=== PATIENT | male | born 1935 | race Caucasian/White ===

== ENCOUNTER 2017-07-14 04:37 | Inpatient (IN) | payer MEDICARE, OTHER ==
[2017-07-14] VITALS (14 sets, daily range): BP systolic 121–192; BP diastolic 62–107; PULSE 54–105; RESP 16–22; TEMP 98.1–98.4; O2SAT 94–100
[~2017-07-14] VITALS: Ht 185.4 cm; Wt 116.8 kg
[~2017-07-14 04:37] MED LIST: ASPI1TAB69 PO; ATAC16TA4 PO; LIPI10TA PO; MIRA33504 PO; PRIL20CA9 PO; PROS5TAB PO
[2017-07-14] MEDS ORDERED: ASPI81CH7 CHEW (05:15)
[2017-07-14] MEDS ORDERED: OMEP20TA93 PO (05:15)
[2017-07-14] MEDS ORDERED: oxyCODONE/ACETAMINOPHEN 5 MG/325 MG TAB PO ONE (05:45)
[2017-07-14] MEDS ORDERED: ONDANSETRON ODT 4 MG TAB PO ONE (05:45)
--- NOTE | 2017-07-14 06:01 | RADRPT ---
EXAM DATE/TIME: 07/14/2017 05:02 [facility] COMPARISON: CHEST SINGLE AP, August 24, 2016, 5:15. INDICATIONS : Fall pain in chest on left side. MEDICAL HISTORY : None. SURGICAL HISTORY : None. ENCOUNTER: Initial ACUITY: 1 day PAIN SCORE: 5/10 LOCATION: Left chest FINDINGS: There is hazy perihilar parenchymal opacity on the left. Right lung is grossly clear. No significant effusion suspected. Cardiac contours are satisfactory for technique and projection. CONCLUSION: Mild left perihilar parenchymal opacity Stew Gunn MD on July 14, 2017 at 5:59 Board Certified Radiologist. This report was verified electronically.
--- NOTE | 2017-07-14 06:02 | RADRPT ---
EXAM DATE/TIME: 07/14/2017 05:04 [facility] COMPARISON: No previous studies available for comparison. INDICATIONS : Pain in left upper arm from fall. MEDICAL HISTORY : None. SURGICAL HISTORY : None. ENCOUNTER: Initial ACUITY: 1 day PAIN SCORE: 0/10 LOCATION: Left humerus FINDINGS: Two view examination of the left humerus demonstrates no evidence of fracture or dislocation. Bony m ineralization is normal. The soft tissue structures are intact. There are is arthritic change in the left shoulder, mainly involving the a.c. joint. CONCLUSION: Unremarkable examination of the left humerus. Stew Gunn MD on July 14, 2017 at 6:00 Board Certified Radiologist. This report was verified electronically.
[2017-07-14] MEDS ORDERED: SODIUM CHLORIDE 0.9% FLUSH 10 ML FLUSH IVF PRN (06:30)
--- NOTE | 2017-07-14 06:33 | PD ---
HPI Chief Complaint: Fall Time Seen by Provider: 05:31 Travel History International Travel<30 days: No Contact w/Intl Traveler<30days: No Traveled to known affect area: No History of Present Illness HPI 81 yo M c/o L chest pain after mechanical fall this morning. He fell onto the L side causing sudden onset constant L chest pain worse with inspiration. Additional complaints include L humerus pain. No head trauma. No LOC. Pt takes aspirin. No anticoagulation otherwise. PFSH Past Medical History Hx Anticoagulant Therapy: Yes (ASPIRIN 81) Arthritis: Yes (GENARALIZED) Blood Disorders: No Cancer: Yes (SKIN,PROSTATE) Cardiovascular Problems: Yes High Cholesterol: Yes Chest Pain: Yes (IN LAST 4 MOS.) Diminished Hearing: No Endocrine: No Gastrointestinal Disorders: Yes GERD: Yes Genitourinary: Yes Hypertension: Yes Implanted Vascular Access Dvce: Yes Medical other: Yes (KELLY'S ESOPHAGUS) Musculoskeletal: Yes Neurologic: No Psychiatric: No Reproductive: No Respiratory: Yes Immunizations Current: Yes Radiation Therapy: Yes (HX) Tetanus Vaccination: Unknown Influenza Vaccination: No Past Surgical History Body Medical Devices: RIGHT TIBIA PLATE Genitourinary Surgery: Yes (CYSTOSCOPY-PROSTATE BIOPSY-2002) Tonsillectomy: Yes Other Surgery: Yes Social History Alcohol Use: Yes (OCCASIONALLY) Tobacco Use: No Substance Use: No Allergies-Medications (Allergen,Severity, Reaction): Coded Allergies: No Known Allergies (Verified , 08/24/16) Reported Meds & Prescriptions Reported Meds & Active Scripts Active Reported Omeprazole 20 Mg Tab 20 Mg PO DAILY Aspirin Children's (Aspirin) 81 Mg Chew 81 Mg CHEW DAILY Atacand Hct (Candesartan-Hydrochlorothiazide) 16-12.5 Mg Tab 1 Tab PO DAILY Lipitor (Atorvastatin Calcium) 10 Mg Tab 1 Tab PO HS Proscar (Finasteride) 5 Mg Tab 1 Tab PO DAILY Do not crush. Physical Exam Narrative GENERAL: 81 yo F, WNWD, moderate distress 2/2 pain SKIN: Focused skin assessment warm/dry. HEAD: Atraumatic. Normocephalic. EYES: Pupils equal and round. No scleral icterus. No injection or drainage. ENT: No nasal bleeding or discharge. Mucous membranes pink and moist. NECK: Trachea midline. No JVD. CARDIOVASCULAR: Regular rate and rhythm. No murmur appreciated. RESPIRATORY: No accessory muscle use. No flail chest. GASTROINTESTINAL: Abdomen soft, non-tender, nondistended. Hepatic and splenic margins not palpable. MUSCULOSKELETAL: No obvious deformities. No clubbing. No cyanosis. No edema. NEUROLOGICAL: Awake and alert. No obvious cranial nerve deficits. Motor grossly within normal limits. Normal speech. PSYCHIATRIC: Appropriate mood and affect; insight and judgment normal. Data Data Last Documented VS Vital Signs Date Time Temp Pulse Resp B/P (MAP) Pulse Ox O2 Delivery O2 Flow Rate FiO2 07/14/17 06:50 97 Nasal Cannula 2.00 07/14/17 06:30 92 16 124/81 (95) 07/14/17 04:40 98.3 Orders Orders Humerus (Min 2vws) (07/14/17 ) Chest, Single Ap (07/14/17 ) Oxycodone-Acetamin 5-325 Mg (Percocet (07/14/17 05:45) Ondansetron Odt (Zofran Odt) (07/14/17 05:45) Ct Thorax/ Chest Wo Iv Contras (07/14/17 06:07) Basic Metabolic Panel (Bmp) (07/14/17 06:27) Complete Blood Count With Diff (07/14/17 06:27) Prothrombin Time / Inr (Pt) (07/14/17 06:27) Act Partial Throm Time (Ptt) (07/14/17 06:27) Ecg Monitoring (07/14/17 06:27) Iv Access Insert/Monitor (07/14/17 06:27) Oximetry (07/14/17 06:27) Oxygen Administration (07/14/17 06:27) Sodium Chloride 0.9% Flush (Ns Flush) (07/14/17 06:30) Admit Order (Ed Use Only) (07/14/17 ) [employer] Insight Manager / Telemetry CONSTANTINE.Q8H (07/14/17 07:02) Vital Signs (Adult) Q4H (07/14/17 07:02) Diet Npo (07/14/17 Breakfast) Activity Bed Rest (07/14/17 07:02) Notify Dr: Other (07/14/17 07:02) MDM Medical Decision Making Medical Screen Exam Complete: Yes Emergency Medical Condition: Yes Medical Record Reviewed: Yes Differential Diagnosis Flail chest, hemothorax, pneumothorax, anemia Narrative Course Last [address] 07/14/17 0607 Signed Impressions: Service Date/Time: Friday, July 14, 2017 06:17 - CONCLUSION: Large posterior left chest mass is likely subpleural hematoma. See above discussion. Stew Gunn MD Humerus X-Ray 07/14/17 0000 Signed Impressions: Service Date/Time: Friday, July 14, 2017 05:04 - CONCLUSION: Unremarkable examination of the left humerus. Stew Gunn MD Chest X-Ray 07/14/17 0000 Signed Impressions: Service Date/Time: Friday, July 14, 2017 05:02 - CONCLUSION: Mild left perihilar parenchymal opacity Stew Gunn MD Case d/w Dr Gutierrez for [employer] service Pt hemodynamically stable throughout ED stay with O2 sats in high 90s Pt to go to [facility], possible chest tube placement and/or thoracic surgery consult Diagnosis Primary Impression: Rib fractures Qualified Codes: S22.42XA - Multiple fractures of ribs, left side, initial encounter for closed fracture Additional Impression: Hemothorax on left Admitting Information Admitting Physician Requests: Observation Per Ramon MD Jul 14, 2017 06:33
--- NOTE | 2017-07-14 06:34 | RADRPT ---
EXAM DATE/TIME: 07/14/2017 06:17 [facility] COMPARISON: CHEST SINGLE AP, August 24, 2016, 5:15. CHEST SINGLE AP, July 14, 2017, 5:02. INDICATIONS : Abnormal chest radiograph. RADIATION DOSE: 9.25 CTDIvol (mGy) MEDICAL HISTORY : Cardiovascular disease. Carcinoma, prostate. SURGICAL HISTORY : None. ENCOUNTER: Initial ACUITY: 1 day PAIN SCALE: 0/10 LOCATION: chest TECHNIQUE: Volumetric scanning of the chest was performed. Using automated exposure control and adjustment of t he mA and/or kV according to patient size, radiation dose was kept as low as reasonably achievable to obtain optimal diagnostic quality images. DICOM format image data is available electronically for r eview and comparison. Follow-up recommendations for detected pulmonary nodules are based at a minimum on nodule size and pa tient risk factors according to Fleischner Society Guidelines. FINDINGS: There is a large heterogeneous density subpleural mass involving the posterior left pleural space. Th e process measures greater than 13 cm in sagittal dimension by nearly 12 cm transverse and 6-7 cm in AP dimension. There appears to be minimal adjacent low density pleural fluid medially. There is mild adjacent compressive lung atelectasis and atelectasis in the left lung base. Right lung is satisfacto rily aerated and grossly clear. There are multiple mildly displaced acute appearing posterior and pos terolateral left rib fractures and the mass is therefore presumed to be subpleural hematoma. There is no evidence of mediastinal mass or adenopathy. Minimal pericardial fluid is present. A moder ate-sized hiatal hernia is noted. Dense atherosclerotic calcifications are present, including within the coronaries. There is fairly severe nonacute appearing compressive injury involving one of the lower thoracic vert ebra, likely T11 CONCLUSION: Large posterior left chest mass is likely subpleural hematoma. See above discussion. Stew Gunn MD on July 14, 2017 at 6:25 Board Certified Radiologist. This report was verified electronically.
[2017-07-14] MEDS ORDERED: MAGNESIUM HYDROXIDE SUSP 30 ML CUP PO PRN (07:15)
[2017-07-14] MEDS ORDERED: BISACODYL 10 MG SUPP RECTAL PRN (07:15)
[2017-07-14] MEDS ORDERED: SENNOSIDES 8.6 MG TAB PO PRN (07:15)
[2017-07-14] MEDS ORDERED: RESP: ALBUTEROL 2.5 MG/IPRATROPIUM 0.5 MG NEB (PRN) INH (07:15)
[2017-07-14] MEDS ORDERED: MISCELLANEOUS NURSING INFORMATION XX SCH (07:15)
[2017-07-14] MEDS ORDERED: LACTULOSE SYRUP 20 GM/30 ML CUP PO PRN (07:15)
[2017-07-14] MEDS ORDERED: ACETAMINOPHEN 325 MG TAB PO PRN (07:15)
[2017-07-14] MEDS ORDERED: ONDANSETRON HCL 4 MG/2 ML VIAL IV PUSH PRN (07:15)
[2017-07-14] MEDS ORDERED: CHLORHEXIDINE GLUCONATE 2 % 1 PACK (2 CLOTHS) TOP PRN (07:15)
[2017-07-14] MEDS ORDERED: SODIUM CHLOR 0.9% 1000 ML INJ 1,000 ML IV ONE (07:30)
[2017-07-14 07:50] LABS: AUTOMATED NEUTROPHIL # 11.2 TH/MM3 (1.8-7.7); BASOPHIL % 0.2 % (0.0-2.0); EOSINOPHIL % 0.3 % (0.0-4.0); HEMATOCRIT 34.9 % (39.0-51.0); LYMPH % 3.3 % (9.0-44.0); LYMPHOCYTE # 0.4 TH/MM3 (1.0-4.8); MEAN CELL VOLUME 91.7 FL (80.0-100.0); MEAN CORPUSCULAR HEMOGLOBIN 31.5 PG (27.0-34.0); MEAN CORPUSCULAR HGB CONC 34.4 % (32.0-36.0); MEAN PLATELET VOLUME 7.8 FL (7.0-11.0); MONO % 5.1 % (0.0-8.0); MONOCYTE # 0.6 TH/MM3 (0-0.9); NEUT % 91.1 % (16.0-70.0); PLATELET COUNT 218 TH/MM3 (150-450); RED BLOOD COUNT 3.81 MIL/MM3 (4.50-5.90); RED CELL DISTRIBUTION WIDTH 12.9 % (11.6-17.2); WHITE BLOOD COUNT 12.3 TH/MM3 (4.0-11.0)
[2017-07-14 08:03] LABS: PROTHROMBIN TIME - PATIENT 10.9 SEC (9.8-11.6)
[2017-07-14 08:12] LABS: TOTAL BILIRUBIN ADULT 0.3 MG/DL (0.2-1.0); TOTAL PROTEIN 7.1 GM/DL (6.4-8.2)
[2017-07-14 08:15] LABS: ALBUMIN 3.3 GM/DL (3.4-5.0); BICARBONATE 24.6 MEQ/L (21.0-32.0); CALCIUM 8.5 MG/DL (8.5-10.1); CREATININE 0.68 MG/DL (0.60-1.30); DIRECT BILIRUBIN ADULT 0.1 MG/DL (0.0-0.2); INDIRECT BILIRUBIN 0.2 MG/DL (0.0-0.8)
[2017-07-14] MEDS: SODIUM CHLORIDE 0.9% FLUSH 10 ML FLUSH IV FLUSH SCH ×2 (09:00→21:16)
[2017-07-14] MEDS: DOCUSATE SODIUM 50 MG/SENNA 8.6 MG TAB PO SCH ×2 (09:00→21:15)
[2017-07-14] MEDS: SODIUM CHLOR 0.9% 1000 ML INJ 1,000 ML IV SCH ×2 (10:12→16:41)
[2017-07-14] MEDS: MORPHINE SULFATE 4 MG/ML INJ IV PUSH PRN ×4 (10:14→21:38)
--- NOTE | 2017-07-14 12:31 | HHI.HP ---
HPI Service Critical Care Medicine Primary Care Physician Ignacio Das MD Admission Diagnosis Fall, L Posterior Rib Fractures, L Hemothorax Diagnosis: Travel History International Travel<30 Days: No Contact w/Intl Traveler <30 Da: No Traveled to Known Affected Are: No History of Present Illness HPI 81-year-old male who lives in an assisted living facility and has a history of unsteadiness fell this morning and this left chest against a drawer and subsequently had significant left-sided chest pain with inspiration. He was brought to the ER and underwent a CT chest which revealed a subpleural mass consistent with hematoma and rib fractures involving the left chest wall. Patient was accepted for admission by critical care medicine service. He is not on any anticoagulation. He uses aspirin daily. I evaluated the patient following his arrival to the ICU. At that time he was on 2 L nasal cannula and complaining of chest wall pain. He told me that as long as he does not take deep breaths he does not have much pain however has significant left-sided chest wall pain with deep breathing and movement. History PFSH Past Medical History Hx Anticoagulant Therapy: Yes (ASPIRIN 81) Arthritis: Yes (GENARALIZED) Blood Disorders: No Cancer: Yes (SKIN,PROSTATE) Cardiovascular Problems: Yes High Cholesterol: Yes Chest Pain: Yes (IN LAST 4 MOS.) Diminished Hearing: No Endocrine: No Gastrointestinal Disorders: Yes GERD: Yes Genitourinary: Yes Hypertension: Yes Implanted Vascular Access Dvce: Yes Medical other: Yes (KELLY'S ESOPHAGUS) Musculoskeletal: Yes Neurologic: No Psychiatric: No Reproductive: No Respiratory: Yes Immunizations Current: Yes Radiation Therapy: Yes (HX) Tetanus Vaccination: Unknown Influenza Vaccination: No Past Surgical History Body Medical Devices: RIGHT TIBIA PLATE Genitourinary Surgery: Yes (CYSTOSCOPY-PROSTATE BIOPSY-2002) Tonsillectomy: Yes Other Surgery: Yes Social History Alcohol Use: Yes (OCCASIONALLY) Tobacco Use: No Substance Use: No Allergies-Medications Allergies-Medications (Allergen,Severity, Reaction): Coded Allergies: No Known Allergies (Verified , 08/24/16) Reported Meds & Prescriptions Reported Meds & Active Scripts Active Reported Omeprazole 20 Mg Tab 20 Mg PO DAILY Aspirin Children's (Aspirin) 81 Mg Chew 81 Mg CHEW DAILY Atacand Hct (Candesartan-Hydrochlorothiazide) 16-12.5 Mg Tab 1 Tab PO DAILY Lipitor (Atorvastatin Calcium) 10 Mg Tab 1 Tab PO HS Proscar (Finasteride) 5 Mg Tab 1 Tab PO DAILY Do not crush. ROS Review of Systems Per history of present illness. Significant unsteadiness which has been ongoing. Otherwise negative Physical Exam Vital Signs Vital Signs Date Time Temp Pulse Resp B/P (MAP) Pulse Ox O2 Delivery O2 Flow Rate FiO2 07/14/17 10:00 89 07/14/17 09:02 100 Nasal Cannula 2.00 07/14/17 08:57 86 07/14/17 08:45 98.1 94 21 151/85 (107) 99 07/14/17 08:45 07/14/17 07:49 98.3 88 16 121/76 (91) 98 Nasal Cannula 2.00 07/14/17 07:18 80 16 98 Nasal Cannula 2.00 07/14/17 06:50 97 Nasal Cannula 2.00 07/14/17 06:30 92 16 124/81 (95) 94 Room Air 07/14/17 05:38 98 22 192/106 (134) 98 Room Air 07/14/17 04:40 98.3 105 18 179/107 (131) 96 Physical Exam Physical Exam Physical Exam Narrative GENERAL: 81 yo F, WNWD, moderate distress 2/2 pain SKIN: Focused skin assessment warm/dry. HEAD: Atraumatic. Normocephalic. EYES: Pupils equal and round. No scleral icterus. No injection or drainage. ENT: No nasal bleeding or discharge. Mucous membranes pink and moist. NECK: Trachea midline. No JVD. CARDIOVASCULAR: Regular rate and rhythm. No murmur appreciated. RESPIRATORY: Air entry decreased over left base. Exquisite tenderness over left posterior lateral chest wall. No wheezing or crackles GASTROINTESTINAL: Abdomen soft, non-tender, nondistended. Hepatic and splenic margins not palpable. MUSCULOSKELETAL: No obvious deformities. No clubbing. No cyanosis. No edema. NEUROLOGICAL: Awake and alert. No obvious cranial nerve deficits. Motor grossly within normal limits. Normal speech. PSYCHIATRIC: Appropriate mood and affect; insight and judgment normal. Laboratory Laboratory Tests Test 07/14/17 06:45 White Blood Count 12.3 Red Blood Count 3.81 Hemoglobin 12.0 Hematocrit 34.9 Mean Corpuscular Volume 91.7 Mean Corpuscular Hemoglobin 31.5 Mean Corpuscular Hemoglobin Concent 34.4 Red Cell Distribution Width 12.9 Platelet Count 218 Mean Platelet Volume 7.8 Neutrophils (%) (Auto) 91.1 Lymphocytes (%) (Auto) 3.3 Monocytes (%) (Auto) 5.1 Eosinophils (%) (Auto) 0.3 Basophils (%) (Auto) 0.2 Neutrophils # (Auto) 11.2 Lymphocytes # (Auto) 0.4 Monocytes # (Auto) 0.6 Eosinophils # (Auto) 0.0 Basophils # (Auto) 0.0 CBC Comment DIFF FINAL Differential Comment Prothrombin Time 10.9 Prothromb Time International Ratio 1.0 Activated Partial Thromboplast Time 28.3 Blood Urea Nitrogen 11 Creatinine 0.68 Random Glucose 123 Total Protein 7.1 Albumin 3.3 Calcium Level 8.5 Alkaline Phosphatase 63 Aspartate Amino Transf (AST/SGOT) 17 Alanine Aminotransferase (ALT/SGPT) 19 Total Bilirubin 0.3 Direct Bilirubin 0.1 Sodium Level 127 Potassium Level 3.9 Chloride Level 92 Carbon Dioxide Level 24.6 Anion Gap 10 Estimat Glomerular Filtration Rate 112 Indirect Bilirubin 0.2 Result Diagram: 07/14/17 0645 07/14/17 0645 Imaging Last Impressions Chest CT 07/14/17 0607 Signed Impressions: Service Date/Time: Friday, July 14, 2017 06:17 - CONCLUSION: Large posterior left chest mass is likely subpleural hematoma. See above discussion. Stew Gunn MD Humerus X-Ray 07/14/17 0000 Signed Impressions: Service Date/Time: Friday, July 14, 2017 05:04 - CONCLUSION: Unremarkable examination of the left humerus. Stew Gunn MD Chest X-Ray 07/14/17 0000 Signed Impressions: Service Date/Time: Friday, July 14, 2017 05:02 - CONCLUSION: Mild left perihilar parenchymal opacity Stew Gunn MD Caprini VTE Risk Assessment Caprini VTE Risk Assessment: Mod/High Risk (score >= 2) VTE Pharm Contraindication: Hemorrhage Caprini Risk Assessment Model Point Value = 1 Point Value = 2 Point Value = 3 Point Value = 5 Age 41-60 Minor surgery BMI > 25 kg/m2 Swollen legs Varicose veins or History of unexplained or recurrent spontaneous Oral contraceptives or hormone replacement Sepsis (< 1 month) Serious lung disease, including pneumonia (< 1 month) Abnormal pulmonary function Acute myocardial infarction Congestive heart failure (< 1 month) History of inflammatory bowel disease Medical patient at bed rest Age 61-74 Arthroscopic surgery Major open surgery (> 45 min) Laparoscopic surgery (> 45 min) Malignancy Confined to bed (> 72 hours) Immobilizing plaster cast Central venous access Age >= 75 History of VTE Family history of VTE Factor V Leiden Prothrombin [id number] Lupus anticoagulant Anticardiolipin antibodies Elevated serum homocysteine Heparin-induced thrombocytopenia Other congenital or acquired thrombophilia Stroke (< 1 month) Elective arthroplasty Hip, pelvis, or leg fracture Acute spinal cord injury (< 1 month) Prophylaxis Regimen Total Risk Factor Score Risk Level Prophylaxis Regimen 0-1 Low Early ambulation 2 Moderate Order ONE of the following: *Sequential Compression Device (SCD) *Heparin 5000 units SQ BID 3-4 Higher Order ONE of the following medications: *Heparin 5000 units SQ TID *Enoxaparin/Lovenox 40 mg SQ daily (WT < 150 kg, CrCl > 30 mL/min) *Enoxaparin/Lovenox 30 mg SQ daily (WT < 150 kg, CrCl > 10-29 mL/min) *Enoxaparin/Lovenox 30 mg SQ BID (WT < 150 kg, CrCl > 30 mL/min) AND/OR *Sequential Compression Device (SCD) 5 or more Highest Order ONE of the following medications: *Heparin 5000 units SQ TID (Preferred with Epidurals) *Enoxaparin/Lovenox 40 mg SQ daily (WT < 150 kg, CrCl > 30 mL/min) *Enoxaparin/Lovenox 30 mg SQ daily (WT < 150 kg, CrCl > 10-29 mL/min) *Enoxaparin/Lovenox 30 mg SQ BID (WT < 150 kg, CrCl > 30 mL/min) AND *Sequential Compression Device (SCD) Assessment and Plan Assessment and Plan 81-year-old male with: Fall Left-sided rib fractures Left subpleural collection most consistent with hematoma Unsteadiness Hypertension GERD Plan: Neuro: Morphine/Percocet when necessary for pain. Follow neuro status. Cardiovascular: IV hydration. Watch for hypotension. Pulmonary: Supplemental O2 as needed. Dr. Garsia from CT surgery consulted. Discussed with Dr. Garsia. He is recommending pigtail catheter placement to attempt drainage of hematoma/hemothorax. Patient may require surgical intervention for evacuation of hematoma. GI/liver: Nothing by mouth for now. We will advance by mouth following CT surgery eval. continue Protonix Renal/: IV hydration, monitor intake output, follow BUN/creatinine. Monitor and replete electrolytes. ID: Hold off on antibiotics at this time. Endocrine: SSI for glycemic control if needed Prophylaxis: SCDs. No subcutaneous heparin in view of hematoma and left pleural cavity. Discussed with Jazzmine Rachel (CTS) Pritesh Gutierrez MD Jul 14, 2017 12:31
[2017-07-14] MEDS ORDERED: MIDAZOLAM HCL 5 MG/ML VIAL (1 ML) ONE (15:02)
[2017-07-14] MEDS ORDERED: LIDOCAINE HCL 1% 50 ML VIAL ONE (15:02)
--- NOTE | 2017-07-14 16:25 | PD.PROCEDR ---
Procedure Note Procedure Procedure: Pigtail catheter placement site: Left pleural cavity Preop diagnosis: Left hemothorax Postop diagnosis: Same Informed consent: Obtained from patient and documented on chart. Anesthesia used: 1% lidocaine for local infiltration anesthesia. Versed 2 mg IV , morphine 4 mg IV for sedation/analgesia. Procedure: After sterile prepping and draping using 1% lidocaine for local infiltration anesthesia, introducer Angiocath was used to enter left pleural cavity between fourth and fifth intercostal space in posterior to posterior axillary line. A guidewire was passed through Angiocath without any resistance following which Angiocath was removed. 12 Bulgarian pigtail catheter was advanced over the guidewire into the left pleural cavity following which guidewire and stiffener were removed. Pigtail catheter was connected to Pleur- evac VAC with a connector. Pigtail catheter was secured with stayfix. Postprocedure chest x-ray was ordered and was pending at the time of this dictation. It will be reviewed when available. Patient tolerated procedure well with no immediate complications noted. Pritesh Gutierrez MD Jul 14, 2017 16:25
--- NOTE | 2017-07-14 16:50 | PD.CONS ---
History of Present Illness Service CT Surgery Consult Requested By Dr. Gutierrez Reason for Consult Left hemothorax Primary Care Physician Ignacio Das MD Diagnoses: (1) Hemothorax on left History of Present Illness 81y/o male s/p fall this morning c/o left chest pain. He presented to the ED and was found to have a left hemothorax with rib fractures. He states he lost his balance and struck his left chest on a hard object. Review of Systems Constitutional: DENIES: Diaphoretic episodes, Fatigue, Fever, Weight gain, Weight loss, Chills, Dizziness, Change in appetite, Night Sweats Endocrine: DENIES: Heat/cold intolerance, Polydipsia, Polyuria, Polyphagia Eyes: DENIES: Blurred vision, Diplopia, Eye inflammation, Eye pain, Vision loss , Photosensitivity, Double Vision Ears, nose, mouth, throat: DENIES: Tinnitus, Hearing loss, Vertigo, Nasal discharge, Oral lesions, Throat pain, Hoarseness, Ear Pain, Running Nose, Epistaxis, Sinus Pain, Toothache, Odynophagia Respiratory: DENIES: Apneas, Cough, Snoring, Wheezing, Hemoptysis, Sputum production, Shortness of breath Cardiovascular: COMPLAINS OF: Chest pain, DENIES: Palpitations, Syncope, Dyspnea on Exertion, PND, Lower Extremity Edema, Orthopnea, Claudication Gastrointestinal: DENIES: Abdominal pain, Black stools, Bloody stools, Constipation, Diarrhea, Nausea, Vomiting, Difficulty Swallowing, Anorexia Genitourinary: COMPLAINS OF: Urinary frequency, Nocturia, DENIES: Sexual dysfunction, Urinary incontinence, Urgency, Hematuria, Dysuria, Penile Discharge , Testicular Pain, Testicular Swelling Musculoskeletal: COMPLAINS OF: Muscle aches, Stiffness, DENIES: Joint pain, Joint Swelling, Back pain, Neck pain Integumentary: DENIES: Abnormal pigmentation, Nail changes, Pruritus, Rash Hematologic/lymphatic: DENIES: Bruising, Lymphadenopathy Immunologic/allergic: DENIES: Eczema, Urticaria Neurologic: DENIES: Abnormal gait, Headache, Localized weakness, Paresthesias, Seizures, Speech Problems, Tremor, Poor Balance Psychiatric: DENIES: Anxiety, Confusion, Mood changes, Depression, Hallucinations, Agitation, Suicidal Ideation, Homicidal Ideation, Delusions Past Family Social History Allergies: Coded Allergies: No Known Allergies (Verified , 08/24/16) Past Medical History Arthritis h/o prostate CA CAD Hyperlipidemia GERD HTN PSH: RIGHT TIBIA PLATE CYSTOSCOPY-PROSTATE BIOPSY-2002) Tonsillectomy Social History Alcohol Use: Yes (OCCASIONALLY) Tobacco Use: No Substance Use: No Reported Meds & Active Scripts Active Reported Omeprazole 20 Mg Tab 20 Mg PO DAILY Aspirin Children's (Aspirin) 81 Mg Chew 81 Mg CHEW DAILY Atacand Hct (Candesartan-Hydrochlorothiazide) 16-12.5 Mg Tab 1 Tab PO DAILY Lipitor (Atorvastatin Calcium) 10 Mg Tab 1 Tab PO HS Proscar (Finasteride) 5 Mg Tab 1 Tab PO DAILY Do not crush. Physical Exam Vital Signs Vital Signs Date Time Temp Pulse Resp B/P (MAP) Pulse Ox O2 Delivery O2 Flow Rate FiO2 07/14/17 16:00 98.4 62 21 121/67 (85) 100 07/14/17 16:00 67 07/14/17 14:00 77 07/14/17 12:00 75 07/14/17 12:00 98.2 78 18 123/69 (87) 100 07/14/17 10:00 89 07/14/17 09:02 100 Nasal Cannula 2.00 07/14/17 08:57 86 07/14/17 08:45 98.1 94 21 151/85 (107) 99 07/14/17 08:45 07/14/17 07:49 98.3 88 16 121/76 (91) 98 Nasal Cannula 2.00 07/14/17 07:18 80 16 98 Nasal Cannula 2.00 07/14/17 06:50 97 Nasal Cannula 2.00 07/14/17 06:30 92 16 124/81 (95) 94 Room Air 07/14/17 05:38 98 22 192/106 (134) 98 Room Air 07/14/17 04:40 98.3 105 18 179/107 (131) 96 Physical Exam GENERAL: This is a well-nourished, well-developed patient, in no apparent distress. SKIN: No rashes, ecchymoses or lesions. Cool and dry. HEAD: Atraumatic. Normocephalic. No temporal or scalp tenderness. EYES: Pupils equal round and reactive. Extraocular motions intact. No scleral icterus. No injection or drainage. ENT: Nose without bleeding, purulent drainage or septal hematoma. Throat without erythema, tonsillar hypertrophy or exudate. Uvula midline. Airway patent. NECK: Trachea midline. No JVD or lymphadenopathy. Supple, nontender, no meningeal signs. CARDIOVASCULAR: Regular rate and rhythm without murmurs, gallops, or rubs. RESPIRATORY: Decreased BS on left with chest wall tenderness GASTROINTESTINAL: Abdomen soft, non-tender, nondistended. No hepato-splenomegaly , or palpable masses. No guarding. MUSCULOSKELETAL: Extremities without clubbing, cyanosis, or edema. No joint tenderness, effusion, or edema noted. No calf tenderness. Negative Homans sign bilaterally. NEUROLOGICAL: Awake and alert. Cranial nerves II through XII intact. Motor and sensory grossly within normal limits. Five out of 5 muscle strength in all muscle groups. Normal speech. Laboratory Laboratory Tests Test 07/14/17 06:45 07/14/17 16:27 White Blood Count 12.3 Red Blood Count 3.81 Hemoglobin 12.0 Hematocrit 34.9 Mean Corpuscular Volume 91.7 Mean Corpuscular Hemoglobin 31.5 Mean Corpuscular Hemoglobin Concent 34.4 Red Cell Distribution Width 12.9 Platelet Count 218 Mean Platelet Volume 7.8 Neutrophils (%) (Auto) 91.1 Lymphocytes (%) (Auto) 3.3 Monocytes (%) (Auto) 5.1 Eosinophils (%) (Auto) 0.3 Basophils (%) (Auto) 0.2 Neutrophils # (Auto) 11.2 Lymphocytes # (Auto) 0.4 Monocytes # (Auto) 0.6 Eosinophils # (Auto) 0.0 Basophils # (Auto) 0.0 CBC Comment DIFF FINAL Differential Comment Prothrombin Time 10.9 Prothromb Time International Ratio 1.0 Activated Partial Thromboplast Time 28.3 Blood Urea Nitrogen 11 Creatinine 0.68 Random Glucose 123 Total Protein 7.1 Albumin 3.3 Calcium Level 8.5 Alkaline Phosphatase 63 Aspartate Amino Transf (AST/SGOT) 17 Alanine Aminotransferase (ALT/SGPT) 19 Total Bilirubin 0.3 Direct Bilirubin 0.1 Sodium Level 127 Potassium Level 3.9 Chloride Level 92 Carbon Dioxide Level 24.6 Anion Gap 10 Estimat Glomerular Filtration Rate 112 Indirect Bilirubin 0.2 Result Diagram: 07/14/1745 07/14/1745 Imaging Last Impressions Chest CT 07/14/17 0607 Signed Impressions: Service Date/Time: Wednesday, July 14, 2017 06:17 - CONCLUSION: Large posterior left chest mass is likely subpleural hematoma. See above discussion. Stew Gunn MD Humerus X-Ray 07/14/17 0000 Signed Impressions: Service Date/Time: Friday, July 14, 2017 05:04 - CONCLUSION: Unremarkable examination of the left humerus. Stew Gunn MD Chest X-Ray 07/14/17 0000 Signed Impressions: Service Date/Time: Friday, July 14, 2017 05:02 - CONCLUSION: Mild left perihilar parenchymal opacity Stew Gunn MD Course Patient was admitted and just recently underwent 12F catheter placement by Dr. Gutierrez. If there is adequate evacuation of this effusion, then the patient would likely not require further intervention fot this issue. However, if there is significant effusion remaining, large bore chest tube placement or thoracoscopic exploration would need to be considered. Faye Rachel MD Jul 14, 2017 16:50
[2017-07-14 16:53] LABS: HEMATOCRIT 30.6 % (39.0-51.0); HEMOGLOBIN 10.8 GM/DL (13.0-17.0); MEAN CELL VOLUME 92.6 FL (80.0-100.0); MEAN CORPUSCULAR HEMOGLOBIN 32.7 PG (27.0-34.0); MEAN CORPUSCULAR HGB CONC 35.3 % (32.0-36.0); MEAN PLATELET VOLUME 7.6 FL (7.0-11.0); PLATELET COUNT 190 TH/MM3 (150-450); WHITE BLOOD COUNT 8.5 TH/MM3 (4.0-11.0)
--- NOTE | 2017-07-14 17:05 | RADRPT ---
EXAM DATE/TIME: 07/14/2017 16:03 [facility] COMPARISON: CT THORAX W/O CONTRAST, July 14, 2017, 6:17. CHEST SINGLE AP, July 14, 2017, 5:02. INDICATIONS : Left side chest tube placement. MEDICAL HISTORY : None. SURGICAL HISTORY : None. ENCOUNTER: Initial ACUITY: 1 day PAIN SCORE: 0/10 LOCATION: Left chest FINDINGS: Interval placement of left-sided chest tube with catheter tip in the mid left hemithorax. Moderate-si zed left-sided pleural-parenchymal opacity. Remainder of the exam is unchanged given difference in [place]. CONCLUSION: 1. Left-sided chest tube projecting in the left mid hemithorax. 2. No significant pneumothorax with moderate-sized left-sided pleural-parenchymal opacity similar to earlier CT examination. Jonathan Roman MD on July 14, 2017 at 17:02 Board Certified Radiologist. This report was verified electronically.
[2017-07-14] MEDS ORDERED: ZOLPIDEM TARTRATE 5 MG TAB PO PRN (21:00)
[2017-07-14] MEDS: ATORVASTATIN 10 MG TAB PO SCH (21:15)
[2017-07-15] VITALS (11 sets, daily range): BP systolic 121–172; BP diastolic 58–88; PULSE 54–88; RESP 15–26; TEMP 95.7–98; O2SAT 94–100
[2017-07-15] MEDS: MORPHINE SULFATE 4 MG/ML INJ IV PUSH PRN ×3 (01:01→20:02)
[2017-07-15] MEDS: SODIUM CHLOR 0.9% 1000 ML INJ 1,000 ML IV SCH ×2 (01:02→14:34)
[2017-07-15] MEDS: CHLORHEXIDINE GLUCONATE 2 % 1 PACK (2 CLOTHS) TOP SCH (04:00)
[2017-07-15 04:59] LABS: AUTOMATED NEUTROPHIL # 4.2 TH/MM3 (1.8-7.7); BASOPHIL % 0.6 % (0.0-2.0); EOSINOPHIL # 0.1 TH/MM3 (0-0.4); EOSINOPHIL % 1.6 % (0.0-4.0); HEMATOCRIT 27.6 % (39.0-51.0); HEMOGLOBIN 9.6 GM/DL (13.0-17.0); LYMPH % 14.9 % (9.0-44.0); LYMPHOCYTE # 0.9 TH/MM3 (1.0-4.8); MEAN CELL VOLUME 92.8 FL (80.0-100.0); MEAN CORPUSCULAR HEMOGLOBIN 32.1 PG (27.0-34.0); MEAN CORPUSCULAR HGB CONC 34.6 % (32.0-36.0); MEAN PLATELET VOLUME 7.7 FL (7.0-11.0); MONOCYTE # 0.7 TH/MM3 (0-0.9); NEUT % 70.9 % (16.0-70.0); PLATELET COUNT 185 TH/MM3 (150-450); RED BLOOD COUNT 2.97 MIL/MM3 (4.50-5.90); RED CELL DISTRIBUTION WIDTH 12.9 % (11.6-17.2); WHITE BLOOD COUNT 5.9 TH/MM3 (4.0-11.0)
[2017-07-15 05:18] LABS: CALCIUM 7.9 MG/DL (8.5-10.1); CREATININE 0.57 MG/DL (0.60-1.30)
--- NOTE | 2017-07-15 05:41 | RADRPT ---
EXAM DATE/TIME: 07/15/2017 05:01 [facility] COMPARISON: CHEST SINGLE AP, July 14, 2017, 5:02. CT THORAX W/O CONTRAST, July 14, 2017, 6:17. HUMERUS LEFT (MIN 2VWS), July 14, 2017, 5:04. CHEST SINGLE AP, July 14, 2017, 16:03. INDICATIONS : Short of breath. Follow up hemothorax. MEDICAL HISTORY : None. SURGICAL HISTORY : None. ENCOUNTER: Subsequent ACUITY: 2 days PAIN SCORE: Non-responsive. LOCATION: Bilateral chest FINDINGS: Left chest pigtail thoracostomy tube remains in place. Diffuse density over the left chest is unchang ed. Right lung remains grossly clear. Cardiac contours are stable accounting for differences in techn ique and projection. CONCLUSION: No significant interval change Stew Gunn MD on July 15, 2017 at 5:36 Board Certified Radiologist. This report was verified electronically.
[2017-07-15] MEDS: FINASTERIDE 5 MG TAB PO SCH (08:26)
[2017-07-15] MEDS: PANTOPRAZOLE SOD 20 MG DELAYED RELEASE TAB PO SCH (08:26)
[2017-07-15] MEDS: DOCUSATE SODIUM 50 MG/SENNA 8.6 MG TAB PO SCH ×2 (08:26→20:01)
[2017-07-15] MEDS: oxyCODONE/ACETAMINOPHEN 5 MG/325 MG TAB PO PRN ×4 (08:30→21:57)
[2017-07-15] MEDS: SODIUM CHLORIDE 0.9% FLUSH 10 ML FLUSH IV FLUSH SCH ×2 (09:00→20:01)
--- NOTE | 2017-07-15 13:01 | PD.CAR.PN ---
CVT Progress Note Subjective/Hospital Course: c/o left chest wall pain Objective: Vital Signs Date Time Temp Pulse Resp B/P (MAP) Pulse Ox O2 Delivery O2 Flow Rate FiO2 07/15/17 10:00 56 07/15/17 08:00 60 07/15/17 08:00 60 07/15/17 07:00 Room Air 07/15/17 06:00 54 07/15/17 04:00 76 07/15/17 04:00 97.8 76 25 145/74 (97) 100 07/15/17 03:50 22 07/15/17 02:00 54 07/15/17 00:00 58 07/15/17 00:00 98.0 54 15 121/58 (79) 100 07/14/17 22:00 54 07/14/17 20:00 62 07/14/17 20:00 98.2 62 21 140/62 (88) 100 07/14/17 19:30 100 21 07/14/17 19:00 100 Nasal Cannula 2.00 07/14/17 18:00 72 07/14/17 17:17 Nasal Cannula 2.00 07/14/17 16:00 98.4 62 21 121/67 (85) 100 07/14/17 16:00 67 07/14/17 14:00 77 Labs: Laboratory Tests Test 07/15/17 04:21 White Blood Count 5.9 TH/MM3 (4.0-11.0) Red Blood Count 2.97 MIL/MM3 (4.50-5.90) Hemoglobin 9.6 GM/DL (13.0-17.0) Hematocrit 27.6 % (39.0-51.0) Mean Corpuscular Volume 92.8 FL (80.0-100.0) Mean Corpuscular Hemoglobin 32.1 PG (27.0-34.0) Mean Corpuscular Hemoglobin Concent 34.6 % (32.0-36.0) Red Cell Distribution Width 12.9 % (11.6-17.2) Platelet Count 185 TH/MM3 (150-450) Mean Platelet Volume 7.7 FL (7.0-11.0) Neutrophils (%) (Auto) 70.9 % (16.0-70.0) Lymphocytes (%) (Auto) 14.9 % (9.0-44.0) Monocytes (%) (Auto) 12.0 % (0.0-8.0) Eosinophils (%) (Auto) 1.6 % (0.0-4.0) Basophils (%) (Auto) 0.6 % (0.0-2.0) Neutrophils # (Auto) 4.2 TH/MM3 (1.8-7.7) Lymphocytes # (Auto) 0.9 TH/MM3 (1.0-4.8) Monocytes # (Auto) 0.7 TH/MM3 (0-0.9) Eosinophils # (Auto) 0.1 TH/MM3 (0-0.4) Basophils # (Auto) 0.0 TH/MM3 (0-0.2) CBC Comment AUTO DIFF Differential Comment AUTO DIFF CONFIRMED Blood Urea Nitrogen 9 MG/DL (7-18) Creatinine 0.57 MG/DL (0.60-1.30) Random Glucose 106 MG/DL (74-106) Calcium Level 7.9 MG/DL (8.5-10.1) Sodium Level 132 MEQ/L (136-145) Potassium Level 4.0 MEQ/L (3.5-5.1) Chloride Level 98 MEQ/L (98-107) Carbon Dioxide Level 27.0 MEQ/L (21.0-32.0) Anion Gap 7 MEQ/L (5-15) Estimat Glomerular Filtration Rate 137 ML/MIN (>89) Result Diagram: 07/15/1742007/15/17420 Pulmonary: decreased BS on left CT: 300ml overnight Plan: Patient with residual left pleural effusion with pigtail in place. Agree with continued suction drainage. Patient is asymptomatic, so no need to intervene further at this time. Faye Rachel MD Jul 15, 2017 13:01
--- NOTE | 2017-07-15 13:49 | HHI.PR ---
Subjective Remarks Follow-up for left pleural hematoma Patient denies shortness of breath, saturation is 96%, mild pain in the left thoracic area. No chest pain. Chest tube drained 150 cc of sanguinous fluid overnight, still draining this morning. Objective Vitals Vital Signs Date Time Temp Pulse Resp B/P (MAP) Pulse Ox O2 Delivery O2 Flow Rate FiO2 07/15/17 10:00 56 07/15/17 08:00 60 07/15/17 08:00 60 07/15/17 07:00 Room Air 07/15/17 06:00 54 07/15/17 04:00 76 07/15/17 04:00 97.8 76 25 145/74 (97) 100 07/15/17 03:50 22 07/15/17 02:00 54 07/15/17 00:00 58 07/15/17 00:00 98.0 54 15 121/58 (79) 100 07/14/17 22:00 54 07/14/17 20:00 62 07/14/17 20:00 98.2 62 21 140/62 (88) 100 07/14/17 19:30 100 21 07/14/17 19:00 100 Nasal Cannula 2.00 07/14/17 18:00 72 07/14/17 17:17 Nasal Cannula 2.00 07/14/17 16:00 98.4 62 21 121/67 (85) 100 07/14/17 16:00 67 07/14/17 14:00 77 I/O 07/14/17 07/14/17 07/14/17 07/15/17 07/15/17 07/15/17 07:00 15:00 23:00 07:00 15:00 23:00 Intake Total 1000 ml 1432 ml Output Total 404 ml 265 ml Balance 1000 ml -404 ml 1167 ml Intake IV Total 1000 ml 1432 ml Output Urine Total 250 ml 100 ml Chest Tube Drainage Total 154 ml 165 ml # Voids 2 2 Result Diagram: 07/15/1742007/15/17420 Objective Remarks Not in distress, well-nourished, looks stated age PERRL, pink conjunctiva without injection, anicteric Normal rate and regular rhythm, no murmurs gallops or rubs appreciated. Decreased breath sounds on the left, tenderness on palpation of the left posterior-lateral chest wall. No wheezing or crackles. Normal bowel sounds, soft, non-tender, nondistended, no guarding. Extremities without clubbing, cyanosis, or edema. AAO x3, no cranial nerve deficits, moves all 4 extremities, no focal neurologic deficits A/P Assessment and Plan This is an 81-year-old male with left subpleural hematoma secondary to left- sided rib fracture secondary to fall Left-sided rib fracture with left subpleural hematoma-status post pigtail insertion, thoracic surgery following. No need for surgery if chest tube is draining. Presently, draining 150 cc overnight, still draining this morning. Pulmonary status stable, recheck chest x-ray tomorrow. Continue pain control. Recheck CBC tomorrow. Aspirin on hold Fall-consult physical therapy for evaluation Hypertension- antihypertensives on hold, blood pressure stable. DVT prophylaxis: SCDs, pharmacological prophylaxis contraindicated because of bleed. Cheri Montiel MD Jul 15, 2017 13:49
[2017-07-15] MEDS: ATORVASTATIN 10 MG TAB PO SCH (20:01)
[2017-07-16 00:47] VITALS: BP 130/73; PULSE 77; RESP 18; TEMP 96.5; O2SAT 94
[2017-07-16] MEDS: CHLORHEXIDINE GLUCONATE 2 % 1 PACK (2 CLOTHS) TOP SCH (04:00)
[2017-07-16] MEDS: oxyCODONE/ACETAMINOPHEN 5 MG/325 MG TAB PO PRN ×3 (04:08→17:22)
[2017-07-16 05:03] VITALS: BP 173/80; PULSE 84; RESP 18; TEMP 97.7; O2SAT 94
[2017-07-16 08:00] VITALS: BP 165/80; PULSE 77; RESP 18; TEMP 97; O2SAT 92
[2017-07-16] MEDS: SODIUM CHLORIDE 0.9% FLUSH 10 ML FLUSH IV FLUSH SCH ×2 (08:36→21:52)
[2017-07-16] MEDS: PANTOPRAZOLE SOD 20 MG DELAYED RELEASE TAB PO SCH (08:36)
[2017-07-16] MEDS: DOCUSATE SODIUM 50 MG/SENNA 8.6 MG TAB PO SCH ×2 (08:36→21:52)
[2017-07-16] MEDS: FINASTERIDE 5 MG TAB PO SCH (08:36)
[2017-07-16] MEDS: SODIUM CHLOR 0.9% 1000 ML INJ 1,000 ML IV SCH (08:45)
[2017-07-16] MEDS: SODIUM CHLORIDE 0.9% FLUSH 10 ML FLUSH IV FLUSH PRN ×3 (10:44→17:39)
[2017-07-16] MEDS: MORPHINE SULFATE 4 MG/ML INJ IV PUSH PRN ×4 (10:44→21:53)
[2017-07-16 12:00] VITALS: BP 144/65; PULSE 84; RESP 16; TEMP 96.7; O2SAT 92
--- NOTE | 2017-07-16 13:38 | HHI.PR ---
Subjective Remarks Patient reports he is breathing ok. States he cannot swallow. Even having a hard time with liquids. He reports a history of multiple esophageal dilation in the past. Chest tube to suction. Objective Vitals Vital Signs Date Time Temp Pulse Resp B/P (MAP) Pulse Ox O2 Delivery O2 Flow Rate FiO2 07/16/17 12:00 96.7 84 16 144/65 (91) 92 07/16/17 10:46 18 07/16/17 08:00 97.0 77 18 165/80 (108) 92 07/16/17 05:03 97.7 84 18 173/80 (111) 94 07/16/17 00:47 96.5 77 18 130/73 (92) 94 07/15/17 21:46 95.7 88 20 169/88 (115) 95 07/15/17 20:00 97.3 86 26 172/82 (112) 94 07/15/17 20:00 77 07/15/17 18:00 86 07/15/17 16:00 62 07/15/17 14:00 70 I/O 07/15/17 07/15/17 07/15/17 07/16/17 07/16/17 07/16/17 07:00 15:00 23:00 07:00 15:00 23:00 Intake Total 1432 ml 950 ml 300 ml Output Total 265 ml 175 ml 750 ml 250 ml Balance 1167 ml 775 ml -450 ml -250 ml Intake Oral 300 ml IV Total 1432 ml 950 ml Output Urine Total 100 ml 175 ml 700 ml 200 ml Chest Tube Drainage Total 165 ml 50 ml 50 ml # Voids 2 Result Diagram: 07/15/171 07/15/17 0421 Imaging Last Impressions Chest X-Ray 07/15/17 0600 Signed Impressions: Service Date/Time: July 05:01 - CONCLUSION: No significant interval change Stew Gunn MD Chest CT 07/14/17 0607 Signed Impressions: Service Date/Time: Friday, July 14, 2017 06:17 - CONCLUSION: Large posterior left chest mass is likely subpleural hematoma. See above discussion. Stew Gunn MD Humerus X-Ray 07/14/17 0000 Signed Impressions: Service Date/Time: Friday, July 14, 2017 05:04 - CONCLUSION: Unremarkable examination of the left humerus. Stew Gunn MD Objective Remarks GENERAL: No acute distress. CARDIOVASCULAR: Regular rate and rhythm. RESPIRATORY: Left chest catheter in place. Clear to auscultation in all lung ashley except for left base. GASTROINTESTINAL: Abdomen soft, non-tender, nondistended. MUSCULOSKELETAL: Extremities without clubbing, cyanosis, or edema. No obvious deformities. NEUROLOGICAL: Awake and alert. Normal speech. PSYCHIATRIC: Appropriate mood and affect; insight and judgment normal. A/P Assessment and Plan 81-year-old male with left subpleural hematoma secondary to left-sided rib fracture secondary to fall Left-sided rib fracture with left subpleural hematoma-status post pigtail insertion, thoracic surgery following. No need for surgery if chest tube is draining. Pulmonary status stable. Continue pain control. Recheck CBC tomorrow. Aspirin on hold Dysphagia: Patient reports a history of multiple dilation in the past. States he is unable to swallow - Consult GI. Fall-consult physical therapy for evaluation. Recommends SNF placement. Hypertension -Resume home dose antihypertensives. . DVT prophylaxis: SCDs, pharmacological prophylaxis contraindicated because of bleed. Gildardo Dawn MD Jul 16, 2017 13:38
--- NOTE | 2017-07-16 15:03 | RADRPT ---
EXAM DATE/TIME: 07/16/2017 14:40 [facility] COMPARISON: HUMERUS LEFT (MIN 2VWS), July 14, 2017, 5:04. CHEST SINGLE AP, July 14, 2017, 16:03. CT THO RAX W/O CONTRAST, July 14, 2017, 6:17. CHEST SINGLE AP, July 15, 2017, 5:01. INDICATIONS : Shortness of breath and pain on right side from fractured ribs. MEDICAL HISTORY : None. SURGICAL HISTORY : None. ENCOUNTER: Initial ACUITY: 2 days PAIN SCORE: 7/10 LOCATION: Right chest FINDINGS: A small chest tube is noted at the left lung base and is stable. The left pleural opacity is again n oted. Mild perihilar infiltrates are noted bilaterally consistent with possible pulmonary vascular c ongestion. The hiatal hernia is stable. Cardiomegaly is also stable. CONCLUSION: 1. No significant change in the appearance of the small left chest tube and pleural density on the le ft. 2. Mild pulmonary vascular congestion bilaterally. 3. Cardiomegaly. 4. Stable hiatal hernia. Tacho Lyman MD on July 16, 2017 at 14:55 Board Certified Radiologist. This report was verified electronically.
[2017-07-16 16:00] VITALS: BP 143/63; PULSE 76; RESP 16; TEMP 98.9; O2SAT 93
[2017-07-16 19:00] VITALS: BP 153/90; PULSE 95; RESP 20; TEMP 97.9; O2SAT 94
[2017-07-16] MEDS: ATORVASTATIN 10 MG TAB PO SCH (21:52)
[2017-07-17] VITALS (7 sets, daily range): BP systolic 109–168; BP diastolic 61–84; PULSE 62–90; RESP 17–20; TEMP 96.3–98; O2SAT 90–96
[2017-07-17] MEDS ORDERED: FUROSEMIDE 20 MG/2 ML VIAL IV PUSH ONE (01:15)
[2017-07-17] MEDS: CHLORHEXIDINE GLUCONATE 2 % 1 PACK (2 CLOTHS) TOP SCH (04:36)
[2017-07-17] MEDS: LOSARTAN 50 MG TAB PO SCH (08:18)
[2017-07-17] MEDS: DOCUSATE SODIUM 50 MG/SENNA 8.6 MG TAB PO SCH ×2 (08:18→20:29)
[2017-07-17] MEDS: SODIUM CHLORIDE 0.9% FLUSH 10 ML FLUSH IV FLUSH SCH ×2 (08:18→20:29)
[2017-07-17] MEDS: FINASTERIDE 5 MG TAB PO SCH (08:18)
[2017-07-17] MEDS: PANTOPRAZOLE SOD 20 MG DELAYED RELEASE TAB PO SCH (08:18)
[2017-07-17] MEDS: HYDROCHLOROTHIAZIDE 12.5 MG CAP PO SCH (08:18)
[2017-07-17] MEDS: SODIUM CHLOR 0.9% 1000 ML INJ 1,000 ML IV SCH (08:19)
[2017-07-17] MEDS: oxyCODONE/ACETAMINOPHEN 5 MG/325 MG TAB PO PRN ×2 (08:22→20:30)
[2017-07-17 08:55] LABS: HEMATOCRIT 26.4 % (39.0-51.0); MEAN CELL VOLUME 91.7 FL (80.0-100.0); MEAN CORPUSCULAR HEMOGLOBIN 31.3 PG (27.0-34.0); MEAN CORPUSCULAR HGB CONC 34.1 % (32.0-36.0); MEAN PLATELET VOLUME 7.5 FL (7.0-11.0); PLATELET COUNT 198 TH/MM3 (150-450); RED BLOOD COUNT 2.88 MIL/MM3 (4.50-5.90)
[2017-07-17] MEDS ORDERED: [UNRECOGNIZED DRUG - OTHER] PO SCH (09:00)
[2017-07-17 09:24] LABS: BICARBONATE 23.7 MEQ/L (21.0-32.0); CALCIUM 8.2 MG/DL (8.5-10.1); CREATININE 0.56 MG/DL (0.60-1.30)
--- NOTE | 2017-07-17 09:43 | HHI.PR ---
Subjective Remarks Patient reports feeling okay. Still having difficulties with swallowing. Urinary retention overnight. A Zamorano catheter was placed. Objective Vitals Vital Signs Date Time Temp Pulse Resp B/P (MAP) Pulse Ox O2 Delivery O2 Flow Rate FiO2 07/17/17 08:00 98.0 90 19 168/84 (112) 94 07/17/17 04:00 98.0 79 20 144/71 (95) 95 07/17/17 01:15 Nasal Cannula 2.00 07/17/17 00:00 97.4 85 18 109/61 (77) 91 07/16/17 19:00 97.9 95 20 153/90 (111) 94 07/16/17 16:00 98.9 76 16 143/63 (89) 93 07/16/17 14:38 16 07/16/17 12:00 96.7 84 16 144/65 (91) 92 07/16/17 10:46 18 I/O 07/16/17 07/16/17 07/16/17 07/17/17 07/17/17 07/17/17 07:00 15:00 23:00 07:00 15:00 23:00 Intake Total 1000 ml 0 ml Output Total 250 ml 520 ml 550 ml Balance -250 ml 1000 ml -520 ml -550 ml Intake Oral 0 ml IV Total 1000 ml Output Urine Total 200 ml 500 ml 550 ml Chest Tube Drainage Total 50 ml 20 ml Bladder Scan Volume Amount 221 ml # Bowel Movements 0 Result Diagram: 07/17/1772907/17/17 0730 Objective Remarks GENERAL: No acute distress. CARDIOVASCULAR: Regular rate and rhythm. RESPIRATORY: Left chest catheter in place. Clear to auscultation in all lung ashley except for left base. GASTROINTESTINAL: Abdomen soft, non-tender, nondistended. MUSCULOSKELETAL: Extremities without clubbing, cyanosis, or edema. No obvious deformities. NEUROLOGICAL: Awake and alert. Normal speech. PSYCHIATRIC: Appropriate mood and affect; insight and judgment normal. A/P Assessment and Plan 81-year-old male with left subpleural hematoma secondary to left-sided rib fracture secondary to fall Left-sided rib fracture with left subpleural hematoma-status post pigtail insertion, thoracic surgery following. No need for surgery if chest tube is draining. Pulmonary status stable. Continue pain control. Recheck CBC tomorrow. Aspirin on hold. Chest tube draining less. Further plans per CT surgery. Dysphagia: History of esophageal strictures requiring dilation. -Patient evaluated by GI. Will need pulmonary clearance prior to endoscopy/ dilation as patient will need to lay on his left side. Currently has a left chest catheter. Hypokalemia: Replace and monitor. Fall secondary to physical deconditioning-consult physical therapy for evaluation. Recommends SNF placement. Hypertension -Resume home dose antihypertensives. . DVT prophylaxis: SCDs, pharmacological prophylaxis contraindicated because of bleed. Gildardo Dwan MD Jul 17, 2017 09:43
[2017-07-17] MEDS ORDERED: POTASSIUM CHLORIDE 25 MEQ EFFERVESCENT TAB PO ONE (10:00)
--- NOTE | 2017-07-17 13:11 | HHI.GIFU ---
GI Follow-up Note Consult Follow-up Pt seen last PM-full note not transcribed yet ([id number]) Subjective: pt was able to tolerate clear liquids. Dysphagia unchanged. No N/V/ GERD. CP better Objective: PHYSICAL EXAMINATION: Vitals signs stable No fever HEENT: no jaundice. Throat is clear. NECK: Neck is supple, no JVD, no lymphadenopathy. CARDIAC: Regular rate and rhythm with no murmur gallop or rubs. ABDOMEN: Soft, nondistended, nontender; no hepatosplenomegaly; bowel sounds are present in all four quadrants. EXTREMITIES: No edema. SKIN: no rash RAIL LOADER: alert and oriented times three. Available Data (labs, X- Rays, Procedues) : ASSESSMENT/PLAN: 1. Dysphagia--worsening over last few months 2. Hx of esophageal strictures-requiring dilation PLAN: 1. Cont clears and PPI 2. Will need EGD/DIL once medically/pulm cleared--pt will need to lay on left side for the procedures 3. Risks of procedure reviewed with the pt It was a pleasure seeing Stew Wright. Thank you for this consult. Entered by: Akash Sanon MD Jul 17, 2017 13:11
--- NOTE | 2017-07-17 13:11 | HHI.GIFU ---
GI Follow-up Note Consult Follow-up Pt seen last PM-full note not transcribed yet ([id number]) Subjective: pt was able to tolerate clear liquids. Dysphagia unchanged. No N/V/ GERD. CP better Objective: PHYSICAL EXAMINATION: Vitals signs stable No fever HEENT: no jaundice. Throat is clear. NECK: Neck is supple, no JVD, no lymphadenopathy. CARDIAC: Regular rate and rhythm with no murmur gallop or rubs. ABDOMEN: Soft, nondistended, nontender; no hepatosplenomegaly; bowel sounds are present in all four quadrants. EXTREMITIES: No edema. SKIN: no rash RISK ENGINEER: alert and oriented times three. Available Data (labs, X- Rays, Procedues) : ASSESSMENT/PLAN: 1. Dysphagia--worsening over last few months 2. Hx of esophageal strictures-requiring dilation PLAN: 1. Cont clears and PPI 2. Will need EGD/DIL once medically/pulm cleared--pt will need to lay on left side for the procedures 3. Risks of procedure reviewed with the pt It was a pleasure seeing Stew Wright. Thank you for this consult. Entered by: Akash Sanon MD Jul 17, 2017 13:11
--- NOTE | 2017-07-17 13:11 | HHI.GIFU ---
GI Follow-up Note Consult Follow-up Pt seen last PM-full note not transcribed yet ([id number]) Subjective: pt was able to tolerate clear liquids. Dysphagia unchanged. No N/V/ GERD. CP better Objective: PHYSICAL EXAMINATION: Vitals signs stable No fever HEENT: no jaundice. Throat is clear. NECK: Neck is supple, no JVD, no lymphadenopathy. CARDIAC: Regular rate and rhythm with no murmur gallop or rubs. ABDOMEN: Soft, nondistended, nontender; no hepatosplenomegaly; bowel sounds are present in all four quadrants. EXTREMITIES: No edema. SKIN: no rash CHANNEL LIP WETTER: alert and oriented times three. Available Data (labs, X- Rays, Procedues) : ASSESSMENT/PLAN: 1. Dysphagia--worsening over last few months 2. Hx of esophageal strictures-requiring dilation PLAN: 1. Cont clears and PPI 2. Will need EGD/DIL once medically/pulm cleared--pt will need to lay on left side for the procedures 3. Risks of procedure reviewed with the pt It was a pleasure seeing Stew Wright. Thank you for this consult. Entered by: Akash Sanon MD Jul 17, 2017 13:11
[2017-07-17] MEDS: MORPHINE SULFATE 4 MG/ML INJ IV PUSH PRN (16:20)
[2017-07-17] MEDS: ATORVASTATIN 10 MG TAB PO SCH (20:29)
[2017-07-18] VITALS (7 sets, daily range): BP systolic 150–190; BP diastolic 71–97; PULSE 62–101; RESP 16–20; TEMP 95.9–98.2; O2SAT 95–97
[2017-07-18] MEDS: MORPHINE SULFATE 4 MG/ML INJ IV PUSH PRN (00:02)
[2017-07-18] MEDS ORDERED: ENALAPRILAT 2.5 MG/2 ML VIAL IV PUSH ONE (03:00)
[2017-07-18] MEDS: CHLORHEXIDINE GLUCONATE 2 % 1 PACK (2 CLOTHS) TOP SCH (04:00)
--- NOTE | 2017-07-18 04:05 | RADRPT ---
EXAM DATE/TIME: 07/18/2017 03:44 [facility] COMPARISON: CT BRAIN W/O CONTRAST, January 30, 2016, 1:09. INDICATIONS : Trauma, fell and hit head. RADIATION DOSE: 23.85 CTDIvol (mGy) ; Patient positioning MEDICAL HISTORY : Cardiovascular disease. Gastroesophageal reflux disease. Hypertension.Prostate cancer. SURGICAL HISTORY : None. ENCOUNTER: Initial ACUITY: 1 day PAIN SCALE: 4/10 LOCATION: cranial TECHNIQUE: Multiple contiguous axial images were obtained of the head. Using automated exposure control and adj ustment of the mA and/or kV according to patient size, radiation dose was kept as low as reasonably a chievable to obtain optimal diagnostic quality images. DICOM format image data is available electro nically for review and comparison. FINDINGS: CEREBRUM: The ventricles are normal for age. No evidence of midline shift, mass lesion, hemorrhage or acute in farction. No extra-axial fluid collections are seen. POSTERIOR FOSSA: The cerebellum and brainstem are intact. The 4th ventricle is midline. The cerebellopontine angle i s unremarkable. EXTRACRANIAL: Left maxillary sinus polyps or retention cysts unchanged. SKULL: The calvaria is intact. No evidence of skull fracture. CONCLUSION: No acute intracranial findings. Higinio Chapman MD on July 18, 2017 at 4:01 Board Certified Radiologist. This report was verified electronically.
--- NOTE | 2017-07-18 07:08 | RADRPT ---
EXAM DATE/TIME: 07/18/2017 06:42 [facility] COMPARISON: No previous studies available for comparison. INDICATIONS : Chest tube removal. MEDICAL HISTORY : None. SURGICAL HISTORY : None. ENCOUNTER: Subsequent ACUITY: 3 days PAIN SCORE: Non-responsive. LOCATION: Left chest FINDINGS: A single view of the chest demonstrates the interval removal of the left-sided chest. No definitive p neumothorax is seen. A moderate-sized pleural effusion remains. The cardiac silhouette remains widen ed. There is diffuse alabaster congestion. Osseous structures are intact. CONCLUSION: Left chest tube has been removed. Moderate size residual left pleural effusion. No definite pneumotho rax Estuardo Peters MD on July 18, 2017 at 7:06 Board Certified Radiologist. This report was verified electronically.
[2017-07-18] MEDS: SODIUM CHLORIDE 0.9% FLUSH 10 ML FLUSH IV FLUSH SCH ×2 (09:00→22:02)
[2017-07-18] MEDS: LOSARTAN 50 MG TAB PO SCH (09:02)
[2017-07-18] MEDS: HYDROCHLOROTHIAZIDE 12.5 MG CAP PO SCH (09:02)
[2017-07-18] MEDS: PANTOPRAZOLE SOD 20 MG DELAYED RELEASE TAB PO SCH (09:02)
[2017-07-18] MEDS: DOCUSATE SODIUM 50 MG/SENNA 8.6 MG TAB PO SCH ×2 (09:02→21:00)
[2017-07-18] MEDS: FINASTERIDE 5 MG TAB PO SCH (09:02)
[2017-07-18] MEDS: SODIUM CHLOR 0.9% 1000 ML INJ 1,000 ML IV SCH (09:03)
[2017-07-18] MEDS ORDERED: HYDROCHLOROTHIAZIDE 12.5 MG CAP PO ONE (11:00)
[2017-07-18] MEDS ORDERED: amLODIPine BESYLATE 5 MG TAB PO ONE (11:00)
--- NOTE | 2017-07-18 12:35 | HHI.GIFU ---
GI Follow-up Note Consult Follow-up Subjective: Patient laying in bed comfortably-still with some pain in left thorax-improving. Chest out. Dysphagia improved per pt. Objective: PHYSICAL EXAMINATION: 176/-92-16 No fever NECK: no lymphadenopathy. CHEST: Chest is clear to auscultation and percussion. CARDIAC: Regular rate and rhythm with no murmur gallop or rubs. ABDOMEN: Soft, nondistended, nontender; no hepatosplenomegaly; bowel sounds are present in all four quadrants. EXTREMITIES: No clubbing or edema. SKIN: no jaundice. WELFARE PROJECT MANAGER: No focal deficits; alert and oriented times three. Available Data (labs, X- Rays, Procedues) : Hgb low but stable ASSESSMENT/PLAN: 1. Dysphagia--worsening over last few months. Improved this am-he was able to take a liquid diet 2. Hx of esophageal strictures-requiring dilation PLAN: 1. Cont clears and PPI 2. pulmonary to see pt 3. Will need EGD/DIL once medically/pulm cleared--pt will need to lay on left side for the procedures (? of rib fractures) 4. Risks, indications, alternatives, limitations, complications, benefits of the procedure were reviewed with the pt. 5. Let me know so I can get him scheduled It was a pleasure seeing Stew Wright. Thank you for this consult. Entered by: Akash Sanon MD Jul 18, 2017 12:35
--- NOTE | 2017-07-18 12:35 | HHI.GIFU ---
GI Follow-up Note Consult Follow-up Subjective: Patient laying in bed comfortably-still with some pain in left thorax-improving. Chest out. Dysphagia improved per pt. Objective: PHYSICAL EXAMINATION: 176/-92-16 No fever NECK: no lymphadenopathy. CHEST: Chest is clear to auscultation and percussion. CARDIAC: Regular rate and rhythm with no murmur gallop or rubs. ABDOMEN: Soft, nondistended, nontender; no hepatosplenomegaly; bowel sounds are present in all four quadrants. EXTREMITIES: No clubbing or edema. SKIN: no jaundice. PERFORMANCE IMPROVEMENT COORDINATOR: No focal deficits; alert and oriented times three. Available Data (labs, X- Rays, Procedues) : Hgb low but stable ASSESSMENT/PLAN: 1. Dysphagia--worsening over last few months. Improved this am-he was able to take a liquid diet 2. Hx of esophageal strictures-requiring dilation PLAN: 1. Cont clears and PPI 2. pulmonary to see pt 3. Will need EGD/DIL once medically/pulm cleared--pt will need to lay on left side for the procedures (? of rib fractures) 4. Risks, indications, alternatives, limitations, complications, benefits of the procedure were reviewed with the pt. 5. Let me know so I can get him scheduled It was a pleasure seeing Stew Wright. Thank you for this consult. Entered by: Akash Sanon MD Jul 18, 2017 12:35
--- NOTE | 2017-07-18 12:35 | HHI.GIFU ---
GI Follow-up Note Consult Follow-up Subjective: Patient laying in bed comfortably-still with some pain in left thorax-improving. Chest out. Dysphagia improved per pt. Objective: PHYSICAL EXAMINATION: 176/-92-16 No fever NECK: no lymphadenopathy. CHEST: Chest is clear to auscultation and percussion. CARDIAC: Regular rate and rhythm with no murmur gallop or rubs. ABDOMEN: Soft, nondistended, nontender; no hepatosplenomegaly; bowel sounds are present in all four quadrants. EXTREMITIES: No clubbing or edema. SKIN: no jaundice. WORKERS COMPENSATION CLAIMS ANALYST: No focal deficits; alert and oriented times three. Available Data (labs, X- Rays, Procedues) : Hgb low but stable ASSESSMENT/PLAN: 1. Dysphagia--worsening over last few months. Improved this am-he was able to take a liquid diet 2. Hx of esophageal strictures-requiring dilation PLAN: 1. Cont clears and PPI 2. pulmonary to see pt 3. Will need EGD/DIL once medically/pulm cleared--pt will need to lay on left side for the procedures (? of rib fractures) 4. Risks, indications, alternatives, limitations, complications, benefits of the procedure were reviewed with the pt. 5. Let me know so I can get him scheduled It was a pleasure seeing Stew Wright. Thank you for this consult. Entered by: Akash Sanon MD Jul 18, 2017 12:35
--- NOTE | 2017-07-18 13:22 | HHI.PR ---
Subjective Remarks Patient became confused overnight. He got out of bed and fell, his cyst and a small scalp laceration. Head CT was unremarkable. He required restraint. He is more awake currently. States this never happened to him before. He did get 1 dose of Ambien for the first time last night. His chest tube came out. Repeat chest x-ray shows mild to moderate pleural effusion on the left. He is stable on the nasal cannula. He denies increased in shortness of breath. Objective Vitals Vital Signs Date Time Temp Pulse Resp B/P (MAP) Pulse Ox O2 Delivery O2 Flow Rate FiO2 07/18/17 12:00 96.2 74 17 167/71 (103) 96 07/18/17 10:00 96 Nasal Cannula 2.00 07/18/17 08:00 97.8 92 16 176/91 (119) 95 07/18/17 02:44 95.9 62 20 188/97 (127) 96 07/18/17 01:34 95.9 101 20 190/88 (122) 96 07/18/17 00:07 18 07/17/17 22:32 97.2 62 20 155/77 (103) 96 07/17/17 21:46 Nasal Cannula 2.00 07/17/17 16:00 96.3 78 17 167/84 (111) 96 I/O 07/17/17 07/17/17 07/17/17 07/18/17 07/18/17 07/18/17 07:00 15:00 23:00 07:00 15:00 23:00 Intake Total 480 ml Output Total 550 ml 0 ml 325 ml Balance -550 ml 0 ml 155 ml Intake Oral 480 ml Output Urine Total 550 ml 300 ml Chest Tube Drainage Total 0 ml 25 ml Bladder Scan Volume Amount 221 ml # Bowel Movements 1 Result Diagram: 07/17/17 0730 07/17/17 0730 Objective Remarks GENERAL: No acute distress. CARDIOVASCULAR: Regular rate and rhythm. RESPIRATORY: Left chest has an intact dressing. Markedly diminished breath sounds on the left mid to lower base. Rest of the lung ashley are clear to auscultation. GASTROINTESTINAL: Abdomen soft, non-tender, nondistended. MUSCULOSKELETAL: Extremities without clubbing, cyanosis, or edema. No obvious deformities. NEUROLOGICAL: Awake and alert. Normal speech. PSYCHIATRIC: Appropriate mood and affect; insight and judgment normal. A/P Assessment and Plan In summary, this is a 81-year-old male admitted with left subpleural hematoma secondary to left-sided rib fracture secondary to fall. Patient has been followed by CT surgery. He had a chest tube in place. He became confused overnight probably secondary to Ambien and fell out of bed. His chest tube came out. CT surgery is aware. Patient is currently stable on a nasal cannula. He also has esophageal strictures. He has been seen by GI with plan for dilation but needs clearance from pulmonology and when he is medically stable. Pulmonology has been consulted to evaluate him for the residual pleural effusion since the chest tube came out. Left-sided rib fracture with left subpleural hematoma-status post pigtail insertion, thoracic surgery following. 07/18 chest tube came out after the patient fell. He was confused. CT surgery aware. Hemodynamically stable. Stable from a respiratory standpoint. Pulmonology consulted. Follow-up CBC tomorrow. Aspirin on hold. Dysphagia: History of esophageal strictures requiring dilation. -Patient evaluated by GI. Will need pulmonary clearance prior to endoscopy/ dilation as patient will need to lay on his left side. Pulmonology consulted Hypokalemia: Replace and monitor. Fall secondary to physical deconditioning-consult physical therapy for evaluation. Recommends SNF placement. Hypertension -Resume home dose antihypertensives. . DVT prophylaxis: SCDs, pharmacological prophylaxis contraindicated because of bleed. Discharge Planning Patient will need SNF when he is medically cleared for discharge Gildardo Dawn MD Jul 18, 2017 13:22
[2017-07-18 13:32] LABS: AUTOMATED NEUTROPHIL # 7.3 TH/MM3 (1.8-7.7); BASOPHIL % 0.3 % (0.0-2.0); EOSINOPHIL % 0.5 % (0.0-4.0); HEMATOCRIT 26.5 % (39.0-51.0); LYMPH % 5.2 % (9.0-44.0); LYMPHOCYTE # 0.4 TH/MM3 (1.0-4.8); MEAN CORPUSCULAR HEMOGLOBIN 31.5 PG (27.0-34.0); MEAN CORPUSCULAR HGB CONC 34.2 % (32.0-36.0); MEAN PLATELET VOLUME 7.6 FL (7.0-11.0); MONO % 9.6 % (0.0-8.0); MONOCYTE # 0.8 TH/MM3 (0-0.9); NEUT % 84.4 % (16.0-70.0); PLATELET COUNT 213 TH/MM3 (150-450); RED BLOOD COUNT 2.88 MIL/MM3 (4.50-5.90); RED CELL DISTRIBUTION WIDTH 12.8 % (11.6-17.2); WHITE BLOOD COUNT 8.6 TH/MM3 (4.0-11.0)
[2017-07-18 13:58] LABS: BICARBONATE 25.9 MEQ/L (21.0-32.0); CALCIUM 8.1 MG/DL (8.5-10.1); CREATININE 0.44 MG/DL (0.60-1.30)
[2017-07-18] MEDS ORDERED: POTASSIUM CHLORIDE 25 MEQ EFFERVESCENT TAB PO ONE (15:00)
[2017-07-18] MEDS: POTASSIUM CHLORIDE 25 MEQ EFFERVESCENT TAB NG SCH (22:02)
[2017-07-18] MEDS: ATORVASTATIN 10 MG TAB PO SCH (22:03)
[2017-07-19 02:14] VITALS: BP 116/64; PULSE 77; RESP 20; TEMP 96.6; O2SAT 94
[2017-07-19] MEDS: CHLORHEXIDINE GLUCONATE 2 % 1 PACK (2 CLOTHS) TOP SCH (04:00)
[2017-07-19 08:00] VITALS: BP 173/80; PULSE 75; RESP 16; TEMP 96.5; O2SAT 96
--- NOTE | 2017-07-19 08:21 | MB ---
cc: AKASH ZUÑIGA MD,CONNOR CLEMENT MD DATE OF CONSULTATION 07/16/17 DATE OF 1935 REASON FOR CONSULTATION I was asked to see this patient by Dr. Dawn for evaluation of dysphagia. HISTORY OF PRESENT ILLNESS The patient is a pleasant 81 year old white male who is followed by Dr. Palafox in the office. He has had intermittent problems with constipation and gastroesophageal reflux disease and has esophageal strictures. He has had food boluses in the past. His last upper endoscopy was done in August 2016 and he had a stricture which was dilated eventually to 18 mm. The stricture is at the GE junction. The patient apparently recently his had unsteady gait and he happened to fall down and a chest CT scan revealed a subpleural hematoma and rib fractions along the chest wall. He currently has a drain in and it is draining old blood. The patient says over the last several months he has had increasing problem swallowing even liquids and some of his pills. He says it is worse in the hospital. He does not feel he has a colon obstruction - he does not have any hypersalivation. There is no odynophagia, early satiety, nausea, vomiting, no melena, diarrhea or constipation well at this time. PAST MEDICAL HISTORY 1. Hypertension, 2. Dyslipidemia 3. Dysphagia the past more likely esophageal strictures. 4. Gastroesophageal reflux disease. 5. Adenomatous colon polyps in the past. 6. 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 Skin cancer 8. Chest pain several months ago. 9. The chart in the hospital has a history of Herrera's esophagus office but I could not find any records in the office notes. PAST SURGICAL HISTORY 1. Right tibial plate 2. Cystoscopy 3. Prostate biopsy 4. Skin cancer surgery, 5. Tonsillectomy. SOCIAL HISTORY Does not smoke. Drinks alcohol occasionally. ALLERGIES NO KNOWN DRUG ALLERGIES. MEDICATIONS Outpatient 1. Omeprazole 2. Aspirin 3. Atacand 4. Lipitor 5. Proscar. In the hospital he has been getting 1. Proscar 2. Protonix 3. Ambien 4. Lipitor 5. Olya-Colace. 6. Percocet. 7. Morphine. 8. Zofran. 9. DuoNeb 10. Milk of Magnesia 11. Senokot, 12. Dulcolax, 13. Lactulose. REVIEW OF SYSTEMS No weight loss. CARDIOPULMONARY: He has some chest pain around the site of his fractures. Minimal shortness of breath. No palpitation, wheezing. GASTROINTESTINAL: Please see above, otherwise, unremarkable 10 point review of systems. FAMILY HISTORY Not significant for colon cancer, colon polyps. PHYSICAL EXAMINATION VITAL SIGNS: Blood pressure is 143/63, pulse 76, respiratory rate 16, temperature is 98.9. GENERAL: An elderly white male in mild distress in regards to his chest/rib fractures but appears in no acute GI distress. HEENT: His pupils equal, round, and react to light. No obvious scleral icterus. Oropharyngeal cavity had dental caries and no tongue deviation or chelsie lesions. There is no evidence of any hypersalivation. NECK: Supple. No thyromegaly or lymphadenopathy. LUNGS: For the most part was clear to auscultation and percussion, some dullness in the left base. HEART: Regular rhythm. No gross murmurs are heard. ABDOMEN: Soft, nondistended, nontender. No organomegaly, masses, ascites or hernias. EXTREMITIES: No cyanosis, clubbing or edema. NEUROLOGIC: Cranial nerves II-XII grossly intact. No gross sensory deficits. He is alert and oriented times three. SKIN: Warm and dry. RECTAL: I did not do a rectal exam on him nor assess his gait. IMAGING STUDIES As mentioned above, subpleural hematoma on the left side with some rib fractures. There is also moderate size hiatal hernia noted. On chest x-ray done today, reveals that the left chest tube is in place, cardiomegaly and stable hiatal hernia. LABORATORY DATA Hemoglobin on admission of 12.0 with a white count 12,300, today it is 9.6, hematocrit 27.6, MCV 92.8, white blood cell count 5900. Platelet count 185,000. His SGOT of 17, SGPT 19, alk phos of 63, BUN 11, creatinine 0.68. Sodium was 127, now 132, potassium 4.0, PT of 10.9, INR 1.0, PTT of 28.3. IMPRESSION Dysphagia. It is a chronic problem and slowly getting worse. I do not think he has a foreign body obstructive at this time - no obvious hypersalivation. He has problems on taking liquids and some of his pills at this time. Differential more likely is a recurrent stricture. Chances of malignancy are small. He has no odynophagia to point to pill esophagitis. 2. Esophageal strictures in the past requiring dilatation. 3. Recent fall with left rib fractures and a left subpleural hematoma - requiring chest tube. RECOMMENDATION 1. Continue PPI 2. Drop diet down to clear liquids - he thinks he can tolerate this. 3. Ultimately the patient will need upper endoscopy and dilatation. However, he understands that he needs to lay on lateral decubitus position at this time. As soon as I can get clearance to do the upper endoscopy and dilatation, we will proceed. I did discuss the indications, risks, complications, benefits, alternatives and limitations of upper endoscopy and dilatation include bleeding, perforation, infection, arrhythmias and small possibly of and in his case also respiratory compromise. He is aware of this and willing to accept risks once we can get clearance to do his procedure. Akash Zuñiga MD SP/ /6:17 PM /9:14 AM
--- NOTE | 2017-07-19 08:38 | HHI.PR ---
Subjective Remarks ALERT NO SOB Objective GENERAL: SKIN: Warm and dry. HEAD: Atraumatic. Normocephalic. EYES: Pupils equal and round. No scleral icterus. No injection or drainage. ENT: No nasal bleeding or discharge. Mucous membranes pink and moist. NECK: Trachea midline. No JVD. CARDIOVASCULAR: Regular rate and rhythm. RESPIRATORY: No accessory muscle use. Clear to auscultation. Breath sounds equal bilaterally. GASTROINTESTINAL: Abdomen soft, non-tender, nondistended. Hepatic and splenic margins not palpable. MUSCULOSKELETAL: Extremities without clubbing, cyanosis, or edema. No obvious deformities. NEUROLOGICAL: Awake and alert. No obvious cranial nerve deficits. Motor grossly within normal limits. Five out of 5 muscle strength in the arms and legs. Normal speech. PSYCHIATRIC: Appropriate mood and affect; insight and judgment normal. Vital Signs Date Time Temp Pulse Resp B/P (MAP) Pulse Ox O2 Delivery O2 Flow Rate FiO2 07/19/17 02:14 96.6 77 20 116/64 (81) 94 07/18/17 23:44 98.2 90 20 178/95 (122) 96 07/18/17 16:00 96.8 78 17 150/77 (101) 97 07/18/17 12:00 96.2 74 17 167/71 (103) 96 07/18/17 10:00 96 Nasal Cannula 2.00 I/O 07/18/17 07/18/17 07/18/17 07/19/17 07/19/17 07/19/17 07:00 15:00 23:00 07:00 15:00 23:00 Intake Total 480 ml Output Total 750 ml 1150 ml Balance -270 ml -1150 ml Intake Oral 480 ml Output Urine Total 750 ml 1150 ml # Bowel Movements 2 7 Result Diagram: 07/18/17 1230 07/18/17 1230 Assessment and Plan Assessment and Plan RIB FX AND HEMOTHORAX STABLE PLAN INCREASE ACTIVITY Wayne Black MD Jul 19, 2017 08:38
[2017-07-19] MEDS: SODIUM CHLORIDE 0.9% FLUSH 10 ML FLUSH IV FLUSH SCH ×2 (09:00→21:00)
[2017-07-19] MEDS: DOCUSATE SODIUM 50 MG/SENNA 8.6 MG TAB PO SCH ×2 (09:00→21:51)
--- NOTE | 2017-07-19 09:01 | MB ---
cc: WAYNE BLACK DATE OF CONSULTATION: 07/18/2017 REASON FOR CONSULTATION Rib fracture, hemothorax. HISTORY OF PRESENT ILLNESS The patient is an 81-year-old male who had fallen on his left side fracturing ribs and developing a subpleural hematoma. The patient had a chest tube inserted with evacuation of the hemothorax which had improved, however, the chest tube was accidentally removed with some residual effusion or hematoma. The incident is now a week old. PAST MEDICAL HISTORY 1. Hypertension. 2. Acid reflux. 3. BPH. 4. Hyperlipidemia. No diabetes. No heart disease. FAMILY HISTORY Noncontributory. ALLERGIES None known to medication. MEDICATIONS Medications at home include: 1. Omeprazole. 2. Aspirin. 3. Lipitor. 4. Proscar. REVIEW OF SYSTEMS 12-point review of systems as per HPI and past history, otherwise negative. PHYSICAL EXAMINATION VITAL SIGNS: Temperature 98, pulse 80, respiration 18, blood pressure 170/90. Oxygen saturation 98% on 2 liters oxygen. HEENT: Exam unremarkable. Eyes without icterus. NECK: Without adenopathy or thyroid enlargement. CHEST: Decreased breath sounds, left hemithorax. CARDIAC: PMI distant. S1-S2 audible. No murmur or rub. ABDOMEN: Lax. Normal bowel sounds. EXTREMITIES: No clubbing, cyanosis or edema. SKIN: Normal. No lymphadenopathy. LABORATORY DATA White count 12,000, hemoglobin 12, hematocrit 34. Sodium 127, potassium 3.9, BUN 11, creatinine 0.6. IMAGING STUDIES Chest x-ray: Residual left hemothorax. IMPRESSION 1. Rib fracture, left hemothorax, post chest tube removal. 2. Hypertension. 3. Hyperlipidemia. 4. Acid reflux. PLAN The patient is clinically stable at present, saturation is adequate. He is on 2 liters oxygen. Would follow the patient clinically as long as he continues improving, conservative management would be appropriate. I will ask thoracic surgery if feels that surgical intervention is needed at this point. I would discontinue oxygen therapy when possible. The patient does not have previous lung disease and is a nonsmoker. Will follow his course along with you and depending on progress proceed further. Wayne Black MD WWW/MARCOS /6:44 PM /9:48 AM
--- NOTE | 2017-07-19 09:20 | RADRPT ---
EXAM DATE/TIME: 07/19/2017 08:51 [facility] COMPARISON: CHEST SINGLE AP, July 18, 2017, 6:42. INDICATIONS : Follow up left pleural effusion/ hemothorax. MEDICAL HISTORY : Cardiovascular disease. Carcinoma, prostate. SURGICAL HISTORY : None. ENCOUNTER: Subsequent ACUITY: 4 - 6 days PAIN SCORE: 5/10 LOCATION: Left chest FINDINGS: Persistent consolidation and effusion remains on the left. The right lung is clear. The heart is en larged. The pulmonary vascularity is normal. CONCLUSION: Persistent consolidation and effusion on the left, slowly improving in the interval. Joshua Barillas MD FACR on July 19, 2017 at 9:17 Board Certified Radiologist. This report was verified electronically.
[2017-07-19] MEDS: SODIUM CHLOR 0.9% 1000 ML INJ 1,000 ML IV SCH (09:28)
[2017-07-19] MEDS: POTASSIUM CHLORIDE 25 MEQ EFFERVESCENT TAB NG SCH ×2 (09:29→21:51)
[2017-07-19] MEDS: HYDROCHLOROTHIAZIDE 12.5 MG CAP PO SCH (09:29)
[2017-07-19] MEDS: LOSARTAN 50 MG TAB PO SCH (09:29)
[2017-07-19] MEDS: amLODIPine BESYLATE 5 MG TAB PO SCH (09:30)
[2017-07-19] MEDS: PANTOPRAZOLE SOD 20 MG DELAYED RELEASE TAB PO SCH (09:30)
[2017-07-19] MEDS: FINASTERIDE 5 MG TAB PO SCH (09:30)
[2017-07-19 10:33] LABS: HEMATOCRIT 27.8 % (39.0-51.0); HEMOGLOBIN 9.7 GM/DL (13.0-17.0); MEAN CELL VOLUME 91.1 FL (80.0-100.0); MEAN CORPUSCULAR HEMOGLOBIN 31.8 PG (27.0-34.0); MEAN CORPUSCULAR HGB CONC 34.9 % (32.0-36.0); MEAN PLATELET VOLUME 7.3 FL (7.0-11.0); PLATELET COUNT 243 TH/MM3 (150-450); RED BLOOD COUNT 3.06 MIL/MM3 (4.50-5.90); RED CELL DISTRIBUTION WIDTH 13.4 % (11.6-17.2); WHITE BLOOD COUNT 7.4 TH/MM3 (4.0-11.0)
--- NOTE | 2017-07-19 10:40 | HHI.GIFU ---
GI Follow-up Note Consult Follow-up Subjective: Patient feeling better. some dysphagia with clear liquids this am. Pulm feels pt is stable Objective: PHYSICAL EXAMINATION: Vitals signs stable No fever CHEST: Chest is clear to auscultation and percussion. CARDIAC: Regular rate and rhythm with no murmur gallop or rubs. ABDOMEN: Soft, nondistended, nontender; no hepatosplenomegaly; bowel sounds are present in all four quadrants. EXTREMITIES: No cedema. SKIN: Normal; no rash; no jaundice. PAPER CUP MACHINE TENDER: alert and oriented times three. Available Data (labs, X- Rays, Procedues) : ASSESSMENT/PLAN: 1. Dysphagia--worsening over last few months. will plan on EGD/DIL this afternoon. 2. Hx of esophageal strictures-requiring dilation PLAN: 1. Cont PPI. NPO 2. EGD/DIL this afternoon 4. Risks, indications, alternatives, limitations, complications, benefits of the procedure were reviewed with the pt. It was a pleasure seeing Stew Wright. Thank you for this consult. Entered by: Akash Sanon MD Jul 19, 2017 10:40
--- NOTE | 2017-07-19 10:40 | HHI.GIFU ---
GI Follow-up Note Consult Follow-up Subjective: Patient feeling better. some dysphagia with clear liquids this am. Pulm feels pt is stable Objective: PHYSICAL EXAMINATION: Vitals signs stable No fever CHEST: Chest is clear to auscultation and percussion. CARDIAC: Regular rate and rhythm with no murmur gallop or rubs. ABDOMEN: Soft, nondistended, nontender; no hepatosplenomegaly; bowel sounds are present in all four quadrants. EXTREMITIES: No cedema. SKIN: Normal; no rash; no jaundice. ACOUSTICAL TILE DRILL PRESS OPERATOR: alert and oriented times three. Available Data (labs, X- Rays, Procedues) : ASSESSMENT/PLAN: 1. Dysphagia--worsening over last few months. will plan on EGD/DIL this afternoon. 2. Hx of esophageal strictures-requiring dilation PLAN: 1. Cont PPI. NPO 2. EGD/DIL this afternoon 4. Risks, indications, alternatives, limitations, complications, benefits of the procedure were reviewed with the pt. It was a pleasure seeing Stew Wright. Thank you for this consult. Entered by: Akash Sanon MD Jul 19, 2017 10:40
--- NOTE | 2017-07-19 10:40 | HHI.GIFU ---
GI Follow-up Note Consult Follow-up Subjective: Patient feeling better. some dysphagia with clear liquids this am. Pulm feels pt is stable Objective: PHYSICAL EXAMINATION: Vitals signs stable No fever CHEST: Chest is clear to auscultation and percussion. CARDIAC: Regular rate and rhythm with no murmur gallop or rubs. ABDOMEN: Soft, nondistended, nontender; no hepatosplenomegaly; bowel sounds are present in all four quadrants. EXTREMITIES: No cedema. SKIN: Normal; no rash; no jaundice. SENIOR SOFTWARE QUALITY ENGINEER: alert and oriented times three. Available Data (labs, X- Rays, Procedues) : ASSESSMENT/PLAN: 1. Dysphagia--worsening over last few months. will plan on EGD/DIL this afternoon. 2. Hx of esophageal strictures-requiring dilation PLAN: 1. Cont PPI. NPO 2. EGD/DIL this afternoon 4. Risks, indications, alternatives, limitations, complications, benefits of the procedure were reviewed with the pt. It was a pleasure seeing Stew Wright. Thank you for this consult. Entered by: Akash Sanon MD Jul 19, 2017 10:40
[2017-07-19 10:58] LABS: BICARBONATE 26.6 MEQ/L (21.0-32.0); CALCIUM 8.9 MG/DL (8.5-10.1); CREATININE 0.6 MG/DL (0.60-1.30)
[2017-07-19 11:25] VITALS: O2SAT 95
[2017-07-19 12:00] VITALS: BP 151/72; PULSE 83; RESP 17; TEMP 96.9; O2SAT 97
--- NOTE | 2017-07-19 13:53 | HHI.PR ---
Subjective Remarks 81-year-old male who lives in an assisted living facility and has a history of unsteadiness fell this morning and this left chest against a drawer and subsequently had significant left-sided chest pain with inspiration. He was brought to the ER and underwent a CT chest which revealed a subpleural mass consistent with hematoma and rib fractures involving the left chest wall. Patient was accepted for admission by critical care medicine service. He is not on any anticoagulation. He uses aspirin daily. I evaluated the patient following his arrival to the ICU. At that time he was on 2 L nasal cannula and complaining of chest wall pain. He told me that as long as he does not take deep breaths he does not have much pain however has significant left-sided chest wall pain with deep breathing and movement. 11-6 FOR EGD AND DILATATION TODAY WITH GI DENIES ANY SOB HAS SOME PAIN WHEN MOVES WRONG FROM THE RIB FRACTURES Objective Vitals Vital Signs Date Time Temp Pulse Resp B/P (MAP) Pulse Ox O2 Delivery O2 Flow Rate FiO2 07/19/17 12:00 96.9 83 17 151/72 (98) 97 07/19/17 11:25 95 21 07/19/17 08:00 96.5 75 16 173/80 (111) 96 07/19/17 02:14 96.6 77 20 116/64 (81) 94 07/18/17 23:44 98.2 90 20 178/95 (122) 96 07/18/17 16:00 96.8 78 17 150/77 (101) 97 I/O 07/18/17 07/18/17 07/18/17 07/19/17 07/19/17 07/19/17 07:00 15:00 23:00 07:00 15:00 23:00 Intake Total 480 ml 1000 ml Output Total 750 ml 1150 ml Balance -270 ml -1150 ml 1000 ml Intake Oral 480 ml IV Total 1000 ml Output Urine Total 750 ml 1150 ml # Bowel Movements 2 7 Result Diagram: 07/19/17 1015 07/19/17 1015 Other Results Laboratory Tests Test 07/17/17 07:30 07/18/17 12:30 07/19/17 10:15 White Blood Count 8.0 TH/MM3 8.6 TH/MM3 7.4 TH/MM3 Red Blood Count 2.88 MIL/MM3 2.88 MIL/MM3 3.06 MIL/MM3 Hemoglobin 9.0 GM/DL 9.0 GM/DL 9.7 GM/DL Hematocrit 26.4 % 26.5 % 27.8 % Mean Corpuscular Volume 91.7 FL 92.0 FL 91.1 FL Mean Corpuscular Hemoglobin 31.3 PG 31.5 PG 31.8 PG Mean Corpuscular Hemoglobin Concent 34.1 % 34.2 % 34.9 % Red Cell Distribution Width 13.0 % 12.8 % 13.4 % Platelet Count 198 TH/MM3 213 TH/MM3 243 TH/MM3 Mean Platelet Volume 7.5 FL 7.6 FL 7.3 FL Blood Urea Nitrogen 12 MG/DL 11 MG/DL 14 MG/DL Creatinine 0.56 MG/DL 0.44 MG/DL 0.60 MG/DL Random Glucose 81 MG/DL 124 MG/DL 123 MG/DL Calcium Level 8.2 MG/DL 8.1 MG/DL 8.9 MG/DL Sodium Level 133 MEQ/L 133 MEQ/L 132 MEQ/L Potassium Level 3.4 MEQ/L 3.3 MEQ/L 3.4 MEQ/L Chloride Level 97 MEQ/L 97 MEQ/L 94 MEQ/L Carbon Dioxide Level 23.7 MEQ/L 25.9 MEQ/L 26.6 MEQ/L Anion Gap 12 MEQ/L 10 MEQ/L 11 MEQ/L Estimat Glomerular Filtration Rate 140 ML/MIN 185 ML/MIN 129 ML/MIN Neutrophils (%) (Auto) 84.4 % Lymphocytes (%) (Auto) 5.2 % Monocytes (%) (Auto) 9.6 % Eosinophils (%) (Auto) 0.5 % Basophils (%) (Auto) 0.3 % Neutrophils # (Auto) 7.3 TH/MM3 Lymphocytes # (Auto) 0.4 TH/MM3 Monocytes # (Auto) 0.8 TH/MM3 Eosinophils # (Auto) 0.0 TH/MM3 Basophils # (Auto) 0.0 TH/MM3 CBC Comment DIFF FINAL Differential Comment Imaging Last Impressions Chest X-Ray 07/19/17 0000 Signed Impressions: Service Date/Time: Wednesday, July 19, 2017 08:51 - CONCLUSION: Persistent consolidation and effusion on the left, slowly improving in the interval. Joshua Barillas MD FACR Head CT 07/18/17 0000 Signed Impressions: Service Date/Time: Tuesday, July 18, 2017 03:44 - CONCLUSION: No acute intracranial findings. Higinio Chapman MD Chest CT 07/14/17 0607 Signed Impressions: Service Date/Time: Friday, July 14, 2017 06:17 - CONCLUSION: Large posterior left chest mass is likely subpleural hematoma. See above discussion. Stew Gunn MD Humerus X-Ray 07/14/17 0000 Signed Impressions: Service Date/Time: Friday, July 14, 2017 05:04 - CONCLUSION: Unremarkable examination of the left humerus. Stew Gunn MD Objective Remarks GENERAL: Awake alert talkative and cooperative SKIN: Warm and dry. HEAD: Atraumatic. Normocephalic. EYES: Pupils equal and round. No scleral icterus. No injection or drainage. Extraocular muscles intact ENT: No nasal bleeding or discharge. Mucous membranes pink and moist. Tongue is midline NECK: Trachea midline. No JVD. Supple CARDIOVASCULAR: Regular rate and rhythm. S1-S2 no S3 or S4 RESPIRATORY: No accessory muscle use. Clear to auscultation. Breath sounds equal bilaterally. GASTROINTESTINAL: Abdomen soft, non-tender, nondistended. Hepatic and splenic margins not palpable. MUSCULOSKELETAL: Extremities without clubbing, cyanosis, or edema. No obvious deformities. NEUROLOGICAL: Awake and alert. No obvious cranial nerve deficits. Motor grossly within normal limits. Five out of 5 muscle strength in the arms and legs. Normal speech. PSYCHIATRIC: Appropriate mood and affect; insight and judgment normal. Procedures CHEST TUBE Medications and IVs Current Medications Oxycodone/ Acetaminophen (Percocet 5-325 Mg) 1 tab ONCE ONCE PO Last administered on 07/14/17 05:41; Start 07/14/17 at 05:45; Stop 07/14/17 at 05:46 ; Status DC Ondansetron HCl (Zofran Odt) 4 mg ONCE ONCE PO Last administered on 05:46; Start 07/14/17 at 05:45; Stop 07/14/17 at 05:46; Status DC Sodium Chloride (NS Flush) 2 ml UNSCH PRN IVF FLUSH AFTER USING IV ACCESS; Start 07/14/17 at 06:30; Stop 07/14/17 at 07:20; Status DC Sodium Chloride 1,000 ml @ 42 mls/hr [id number] IV Last administered on 09:28; Start 07/14/17 at 08:00 Sodium Chloride (NS Flush) 2 ml UNSCH PRN IV FLUSH FLUSH AFTER USING IV ACCESS Last administered on 07/16/17 17:39; Start 07/14/17 at 07:15 Sodium Chloride (NS Flush) 2 ml BID IV FLUSH Last administered on 07/18/17 22: 02; Start 07/14/17 at 09:00 Acetaminophen (Tylenol) 650 mg Q6H PRN PO FEVER >101F; Start 07/14/17 at 07:15 Oxycodone/ Acetaminophen (Percocet 5-325 Mg) 1 tab Q4H PRN PO PAIN GREATER THAN 5 Last administered on 07/17/17 20:30; Start 07/14/17 at 07:15 Morphine Sulfate (Morphine Inj) 4 mg Q2HR PRN IV PUSH PAIN SCALE 6 TO 10 Last administered on 07/18/17 00:02; Start 07/14/17 at 07:15; Stop 07/18/17 at 14:38 ; Status DC Ondansetron HCl (Zofran Inj) 4 mg Q6H PRN IV PUSH NAUSEA OR VOMITING; Start at 07:15 Zolpidem Tartrate (Ambien) 5 mg HS PRN PO INSOMNIA Last administered on 21:43; Start 07/14/17 at 21:00; Stop 07/18/17 at 10:49; Status DC Albuterol/ Ipratropium (Duoneb Neb) 1 ampule Q2HR NEB PRN INH WHEEZING; Start 07/14/17 at 07:15 Miscellaneous Information 1 Q361D XX ; Start 07/14/17 at 07:15 Chlorhexidine Gluconate (Chlorhexidine 2% Cloth) 3 pack Taper DAILY@04 TOP Last administered on 07/15/17 04:00; Start 07/15/17 at 04:00; Stop 07/11/18 at 03:59 Chlorhexidine Gluconate (Chlorhexidine 2% Cloth) 3 pack UNSCH PRN TOP HYGIENIC CARE; Start 07/14/17 at 07:15 Senna/Docusate Sodium (Olya-Colace) 1 tab BID PO Last administered on 09:02; Start 07/14/17 at 09:00 Magnesium Hydroxide (Milk Of Magnesia Liq) 30 ml Q12H PRN PO Mild constipation ; Start 07/14/17 at 07:15 Sennosides (Senokot) 17.2 mg Q12H PRN PO Moderate constipation; Start 07/14/17 at 07:15 Bisacodyl (Dulcolax Supp) 10 mg DAILY PRN RECTAL SEVERE CONSITIPATION; Start 07/14/17 at 07:15 Lactulose (Lactulose Liq) 30 ml DAILY PRN PO SEVERE CONSITIPATION Last administered on 07/16/17 08:36; Start 07/14/17 at 07:15 Sodium Chloride 1,000 ml @ 999 mls/hr BOLUS ONCE IV Last administered on 07/14 07:49; Start 07/14/17 at 07:30; Stop 07/14/17 at 08:30; Status DC Atorvastatin Calcium (Lipitor) 10 mg HS PO Last administered on 07/18/17 22:03 ; Start 07/14/17 at 21:00 Finasteride (Proscar) 5 mg DAILY PO Last administered on 07/19/17 09:30; Start 07/15/17 at 09:00 Pantoprazole Sodium (Protonix) 20 mg DAILY PO Last administered on 07/19/17 09 :30; Start 07/15/17 at 09:00 Lidocaine HCl (Xylocaine 1% Inj (50 ml)) 50 ml STK-MED ONCE .ROUTE Last administered on 07/14/17 16:04; Start 07/14/17 at 15:02; Stop 07/14/17 at 15:03 ; Status DC Midazolam HCl (Versed Inj) 5 mg STK-MED ONCE .ROUTE Last administered on 16:03; Start 07/14/17 at 15:02; Stop 07/14/17 at 15:03; Status DC Non-Formulary Medication 1 tab DAILY PO ; Start 07/17/17 at 09:00; Status Cancel Losartan Potassium (Cozaar) 50 mg DAILY PO Last administered on 07/19/17 09:29 ; Start 07/17/17 at 09:00 Hydrochlorothiazide (Microzide) 12.5 mg DAILY PO Last administered on 09:02; Start 07/17/17 at 09:00; Stop 07/18/17 at 10:52; Status DC Furosemide (Lasix Inj) 20 mg ONCE ONCE IV PUSH Last administered on 07/17/17 01:32; Start 07/17/17 at 01:15; Stop 07/17/17 at 01:16; Status DC Potassium Bicarb/ Potassium Chloride (K-Lyte Cl Eff) 25 meq ONCE ONCE PO Last administered on 07/17/17 10:32; Start 07/17/17 at 10:00; Stop 07/17/17 at 10:01; Status DC Enalaprilat (Vasotec Inj) 2.5 mg ONCE ONCE IV PUSH Last administered on 03:24; Start 07/18/17 at 03:00; Stop 07/18/17 at 03:01; Status DC Hydrochlorothiazide (Microzide) 25 mg DAILY PO Last administered on 07/19/17 09:29; Start 07/19/17 at 09:00 Amlodipine Besylate (Norvasc) 5 mg ONCE ONCE PO Last administered on 11:56; Start 07/18/17 at 11:00; Stop 07/18/17 at 11:18; Status DC Amlodipine Besylate (Norvasc) 5 mg DAILY PO Last administered on 07/19/17 09: 30; Start 07/19/17 at 09:00 Hydrochlorothiazide (Microzide) 12.5 mg ONCE ONCE PO Last administered on 07/18 11:57; Start 07/18/17 at 11:00; Stop 07/18/17 at 11:18; Status DC Potassium Bicarb/ Potassium Chloride (K-Lyte Cl Eff) 25 meq Q12HR NG Last administered on 07/19/17 09:29; Start 07/18/17 at 21:00 Potassium Bicarb/ Potassium Chloride (K-Lyte Cl Eff) 25 meq ONCE ONCE PO Last administered on 07/18/17 16:18; Start 07/18/17 at 15:00; Stop 07/18/17 at 15:01; Status DC Vascular Central Line Catheter: No A/P Assessment and Plan Assessment and Plan In summary, this is a 81-year-old male admitted with left subpleural hematoma secondary to left-sided rib fracture secondary to fall. Patient has been followed by CT surgery. He had a chest tube in place. He became confused overnight on 07-17 probably secondary to Ambien and fell out of bed. His chest tube came out. CT surgery is aware. Patient is currently stable on a nasal cannula. He also has esophageal strictures. He has been seen by GI with plan for dilation TODAY--HAS clearance from pulmonology. Pulmonology has been consulted to evaluate him for the residual pleural effusion since the chest tube came out. Left-sided rib fracture with left subpleural hematoma-status post pigtail insertion, thoracic surgery following. 07/18 chest tube came out after the patient fell. He was confused. CT surgery aware. Hemodynamically stable. Stable from a respiratory standpoint. Pulmonology consulted. Follow-up CBC tomorrow. Aspirin on hold. Cleared by pulmonary for GI procedures Dysphagia: History of esophageal strictures requiring dilation. FOR DILATATION TODAY WITH GI -Patient evaluated by GI. Will need pulmonary clearance prior to endoscopy/ dilation as patient will need to lay on his left side. Pulmonology consulted-- cleared by pulmonary for GI procedures Hypokalemia: Replace and monitor. We'll replace again Fall secondary to physical deconditioning-consult physical therapy for evaluation. Recommends SNF placement. Hypertension -Resume home dose antihypertensives. . Hypercholesterolemia continue home medication DVT prophylaxis: SCDs, pharmacological prophylaxis contraindicated because of bleed. NEEDS PT AND OT Discharge Planning NEXT 24-48 HOURS if no issues with the dilatation Joshua Angeles DO Jul 19, 2017 13:53
[2017-07-19] MEDS ORDERED: INSULIN HUMAN REGULAR 1,000 UNITS/10 ML VIAL SQ PRN (14:00)
[2017-07-19] MEDS ORDERED: POVIDONE IODINE 5% (ANTISEPSIS KIT) 4 APPLICATIONS EACH NARE PRN (14:00)
[2017-07-19] MEDS ORDERED: SODIUM CHLORID 0.9% 500 ML IV PRN (14:00)
[2017-07-19] MEDS ORDERED: CHLORHEXIDINE GLUCONATE 2 % 1 PACK (2 CLOTHS) TOPICAL PRN (14:00)
[2017-07-19] MEDS ORDERED: LACTATED RINGER'S 1000 ML IV PRN (14:00)
[2017-07-19] MEDS ORDERED: METOPROLOL TARTRATE 25 MG TAB PO PRN (14:00)
[2017-07-19 16:00] VITALS: BP 154/76; PULSE 81; RESP 18; TEMP 96.6; O2SAT 95
[2017-07-19] MEDS ORDERED: ACETAMINOPHEN 325 MG TAB PO PRN (17:30)
--- NOTE | 2017-07-19 17:56 | GIPROC ---
[facility] [address] [facility]. [facility] [place], [address] EGD PROCEDURE REPORT EXAM DATE: 07/19/2017 PATIENT NAME: Stew Wright MR #: [id number] BIRTHDATE: 1935 ATTENDING: Akash Briggs MD ORDER #: [id number] FAMILY SERVICE AIDE: Emanuel Thompson and Joanie Mehta STATUS: inpatient INDICATIONS: The patient is a 81 yr old male here for an EGD due to dysphagia PROCEDURE PERFORMED: EGD w/ biopsy EGD w/ dilation of esophagus via guidewire MEDICATIONS: None and Per Anesthesia. TOPICAL ANESTHETIC: none CONSENT: The patient understands the risks and benefits of the procedure and understands that these risks include, but are not limited to: sedation, allergic reaction, infection, perforation and/or bleeding. Alternative means of evaluation and treatment include, among others: physical exam, x-rays, and/or surgical intervention. The patient elects to proceed with this endoscopic procedure. medical equipment was checked for proper function. Hand hygiene and appropriate measures for infection prevention was taken. After the risks, benefits and alternatives of the procedure were thoroughly explained, Informed consent was verified, confirmed and timeout was successfully executed by the treatment team. The patient was anesthetized with topical anesthesia and the Pentax EG-[id number] endoscope was introduced through the mouth and advanced to the second portion of the duodenum. Retroflexion was performed and was normal The gastroscope was then slowly withdrawn and removed. ESOPHAGUS: GE JX was at 43 cm. A 2 cm hiatal hernia was noted. There was a short benign appearing stricture at the gastroesophageal junction. The stricture was traversable with resistance. The stricture was dilated using a 16mm (48Fr) savary dilator over guidewire. Following this dilation, there was a small mucosal rent. Multiple biopsies were taken in the distal and mid esophagus to rule out eosinophilic esophagitis. STOMACH: The mucosa of the stomach appeared normal. DUODENUM: The duodenal mucosa appeared normal. ADVERSE EVENTS: There were no complications. IMPRESSIONS: 1. GE JX was at 43 cm 2. 2 cm hiatal hernia 3. There was a short stricture at the gastroesophageal junction; The stricture was dilated using a 16mm (48Fr) savary dilator over guidewire.; Following this dilation, there was a small mucosal rent; multiple biopsies were taken in the distal and mid esophagus to rule out eosinophilic esophagitis 4. The mucosa of the stomach appeared normal 5. Normal duodenal mucosa 6. Retroflexion was performed and was normal RECOMMENDATIONS: Await biopsy results. Biopsy results will not be ready for 7-10 days. If you don't hear from us in two weeks, call our office for biopsy results. PATIENT CONDITION: stable DISPOSITION: Inpatient REPEAT EXAM: Akash Briggs MD eSigned: Akash Briggs MD 07/19/2017 5:56 PM cc: PATIENT NAME: Stew Wright MR#: [id number]
--- NOTE | 2017-07-19 17:56 | GIPROC ---
[facility] [address] [facility]. [facility], [address] EGD PROCEDURE REPORT EXAM DATE: 07/19/2017 PATIENT NAME: Stew Wright MR #: [id number] BIRTHDATE: 1935 ATTENDING: Akash Briggs MD ORDER #: [id number] MEDICAL UNDERWRITER: Emanuel Thompson and Joanie Mehta STATUS: inpatient INDICATIONS: The patient is a 81 yr old male here for an EGD due to dysphagia PROCEDURE PERFORMED: EGD w/ biopsy EGD w/ dilation of esophagus via guidewire MEDICATIONS: None and Per Anesthesia. TOPICAL ANESTHETIC: none CONSENT: The patient understands the risks and benefits of the procedure and understands that these risks include, but are not limited to: sedation, allergic reaction, infection, perforation and/or bleeding. Alternative means of evaluation and treatment include, among others: physical exam, x-rays, and/or surgical intervention. The patient elects to proceed with this endoscopic procedure. medical equipment was checked for proper function. Hand hygiene and appropriate measures for infection prevention was taken. After the risks, benefits and alternatives of the procedure were thoroughly explained, Informed consent was verified, confirmed and timeout was successfully executed by the treatment team. The patient was anesthetized with topical anesthesia and the Pentax EG-[id number] endoscope was introduced through the mouth and advanced to the second portion of the duodenum. Retroflexion was performed and was normal The gastroscope was then slowly withdrawn and removed. ESOPHAGUS: GE JX was at 43 cm. A 2 cm hiatal hernia was noted. There was a short benign appearing stricture at the gastroesophageal junction. The stricture was traversable with resistance. The stricture was dilated using a 16mm (48Fr) savary dilator over guidewire. Following this dilation, there was a small mucosal rent. Multiple biopsies were taken in the distal and mid esophagus to rule out eosinophilic esophagitis. STOMACH: The mucosa of the stomach appeared normal. DUODENUM: The duodenal mucosa appeared normal. ADVERSE EVENTS: There were no complications. IMPRESSIONS: 1. GE JX was at 43 cm 2. 2 cm hiatal hernia 3. There was a short stricture at the gastroesophageal junction; The stricture was dilated using a 16mm (48Fr) savary dilator over guidewire.; Following this dilation, there was a small mucosal rent; multiple biopsies were taken in the distal and mid esophagus to rule out eosinophilic esophagitis 4. The mucosa of the stomach appeared normal 5. Normal duodenal mucosa 6. Retroflexion was performed and was normal RECOMMENDATIONS: Await biopsy results. Biopsy results will not be ready for 7-10 days. If you don't hear from us in two weeks, call our office for biopsy results. PATIENT CONDITION: stable DISPOSITION: Inpatient REPEAT EXAM: Akash Briggs MD eSigned: Akash Briggs MD 07/19/2017 5:56 PM cc: PATIENT NAME: Stew Wright MR#: [id number]
--- NOTE | 2017-07-19 17:56 | GIPROC ---
[facility] [address] [facility]. [facility], [address] EGD PROCEDURE REPORT EXAM DATE: 07/19/2017 PATIENT NAME: Stew Wright MR #: [id number] BIRTHDATE: 1935 ATTENDING: Akash Briggs MD ORDER #: [id number] FAMILY NURSE: Emanuel Thompson and Joanie Mehta STATUS: inpatient INDICATIONS: The patient is a 81 yr old male here for an EGD due to dysphagia PROCEDURE PERFORMED: EGD w/ biopsy EGD w/ dilation of esophagus via guidewire MEDICATIONS: None and Per Anesthesia. TOPICAL ANESTHETIC: none CONSENT: The patient understands the risks and benefits of the procedure and understands that these risks include, but are not limited to: sedation, allergic reaction, infection, perforation and/or bleeding. Alternative means of evaluation and treatment include, among others: physical exam, x-rays, and/or surgical intervention. The patient elects to proceed with this endoscopic procedure. medical equipment was checked for proper function. Hand hygiene and appropriate measures for infection prevention was taken. After the risks, benefits and alternatives of the procedure were thoroughly explained, Informed consent was verified, confirmed and timeout was successfully executed by the treatment team. The patient was anesthetized with topical anesthesia and the Pentax EG-[id number] endoscope was introduced through the mouth and advanced to the second portion of the duodenum. Retroflexion was performed and was normal The gastroscope was then slowly withdrawn and removed. ESOPHAGUS: GE JX was at 43 cm. A 2 cm hiatal hernia was noted. There was a short benign appearing stricture at the gastroesophageal junction. The stricture was traversable with resistance. The stricture was dilated using a 16mm (48Fr) savary dilator over guidewire. Following this dilation, there was a small mucosal rent. Multiple biopsies were taken in the distal and mid esophagus to rule out eosinophilic esophagitis. STOMACH: The mucosa of the stomach appeared normal. DUODENUM: The duodenal mucosa appeared normal. ADVERSE EVENTS: There were no complications. IMPRESSIONS: 1. GE JX was at 43 cm 2. 2 cm hiatal hernia 3. There was a short stricture at the gastroesophageal junction; The stricture was dilated using a 16mm (48Fr) savary dilator over guidewire.; Following this dilation, there was a small mucosal rent; multiple biopsies were taken in the distal and mid esophagus to rule out eosinophilic esophagitis 4. The mucosa of the stomach appeared normal 5. Normal duodenal mucosa 6. Retroflexion was performed and was normal RECOMMENDATIONS: Await biopsy results. Biopsy results will not be ready for 7-10 days. If you don't hear from us in two weeks, call our office for biopsy results. PATIENT CONDITION: stable DISPOSITION: Inpatient REPEAT EXAM: Akash Briggs MD eSigned: Akash Briggs MD 07/19/2017 5:56 PM cc: PATIENT NAME: Stew Wright MR#: [id number]
[2017-07-19] MEDS ORDERED: NALOXONE HCL 0.4 MG/ML AMP IV PUSH PRN (18:00)
[2017-07-19] MEDS ORDERED: FLUMAZENIL 0.5 MG/5 ML VIAL IV PUSH PRN ×2 (18:00)
[2017-07-19 20:45] VITALS: BP 151/76; PULSE 80; RESP 18; TEMP 97.1; O2SAT 94
[2017-07-19] MEDS: ATORVASTATIN 10 MG TAB PO SCH (21:51)
[2017-07-20 00:38] VITALS: BP 146/69; PULSE 82; RESP 18; TEMP 98.4; O2SAT 96
[2017-07-20] MEDS: CHLORHEXIDINE GLUCONATE 2 % 1 PACK (2 CLOTHS) TOP SCH (03:05)
[2017-07-20 08:30] VITALS: BP 114/60; PULSE 75; RESP 18; TEMP 99; O2SAT 94
[2017-07-20] MEDS: SODIUM CHLORIDE 0.9% FLUSH 10 ML FLUSH IV FLUSH SCH (09:00)
[2017-07-20] MEDS: DOCUSATE SODIUM 50 MG/SENNA 8.6 MG TAB PO SCH (09:00)
[2017-07-20] MEDS: amLODIPine BESYLATE 5 MG TAB PO SCH (09:10)
[2017-07-20] MEDS: HYDROCHLOROTHIAZIDE 12.5 MG CAP PO SCH (09:10)
[2017-07-20] MEDS: FINASTERIDE 5 MG TAB PO SCH (09:10)
[2017-07-20] MEDS: POTASSIUM CHLORIDE 25 MEQ EFFERVESCENT TAB NG SCH (09:10)
[2017-07-20] MEDS: LOSARTAN 50 MG TAB PO SCH (09:10)
[2017-07-20] MEDS: PANTOPRAZOLE SOD 20 MG DELAYED RELEASE TAB PO SCH (09:11)
[2017-07-20] MEDS: SODIUM CHLOR 0.9% 1000 ML INJ 1,000 ML IV SCH (10:55)
[2017-07-20 11:15] VITALS: BP 145/68; PULSE 96; RESP 18; TEMP 97.4; O2SAT 95
--- NOTE | 2017-07-20 12:11 | HHI.GIFU ---
GI Follow-up Note Consult Follow-up Subjective: Patient laying in bed comfortably--eating better after dilation of esophagus Objective: PHYSICAL EXAMINATION: Vitals signs stable No fever CHEST: Chest is clear to auscultation and percussion. CARDIAC: Regular rate and rhythm with no murmur gallop or rubs. ABDOMEN: Soft, nondistended, nontender; no hepatosplenomegaly; bowel sounds are present in all four quadrants. EXTREMITIES: No clubbing, cyanosis, or edema. COAT IRONER HAND: alert and oriented times three. Available Data (labs, X- Rays, Procedues) : awaiting bx from esophagus ASSESSMENT/PLAN: 1. Dysphagia--worsening over last few months. 2. Hx of esophageal strictures-requiring dilation 3. Schatzki's ring-s/p dilation PLAN: 1. Cont PPI. 2. Advance diet 3. Will sign off. F/U with Dr. Palafox as an outpt It was a pleasure seeing Stew Wright. Thank you for this consult. Entered by: Akash Sanon MD Jul 20, 2017 12:11
--- NOTE | 2017-07-20 12:11 | HHI.GIFU ---
GI Follow-up Note Consult Follow-up Subjective: Patient laying in bed comfortably--eating better after dilation of esophagus Objective: PHYSICAL EXAMINATION: Vitals signs stable No fever CHEST: Chest is clear to auscultation and percussion. CARDIAC: Regular rate and rhythm with no murmur gallop or rubs. ABDOMEN: Soft, nondistended, nontender; no hepatosplenomegaly; bowel sounds are present in all four quadrants. EXTREMITIES: No clubbing, cyanosis, or edema. VOICE NETWORK ADMINISTRATOR: alert and oriented times three. Available Data (labs, X- Rays, Procedues) : awaiting bx from esophagus ASSESSMENT/PLAN: 1. Dysphagia--worsening over last few months. 2. Hx of esophageal strictures-requiring dilation 3. Schatzki's ring-s/p dilation PLAN: 1. Cont PPI. 2. Advance diet 3. Will sign off. F/U with Dr. Palafox as an outpt It was a pleasure seeing Stew Wright. Thank you for this consult. Entered by: Akash Sanon MD Jul 20, 2017 12:11
--- NOTE | 2017-07-20 12:11 | HHI.GIFU ---
GI Follow-up Note Consult Follow-up Subjective: Patient laying in bed comfortably--eating better after dilation of esophagus Objective: PHYSICAL EXAMINATION: Vitals signs stable No fever CHEST: Chest is clear to auscultation and percussion. CARDIAC: Regular rate and rhythm with no murmur gallop or rubs. ABDOMEN: Soft, nondistended, nontender; no hepatosplenomegaly; bowel sounds are present in all four quadrants. EXTREMITIES: No clubbing, cyanosis, or edema. PROCUREMENT FORESTER: alert and oriented times three. Available Data (labs, X- Rays, Procedues) : awaiting bx from esophagus ASSESSMENT/PLAN: 1. Dysphagia--worsening over last few months. 2. Hx of esophageal strictures-requiring dilation 3. Schatzki's ring-s/p dilation PLAN: 1. Cont PPI. 2. Advance diet 3. Will sign off. F/U with Dr. Palafox as an outpt It was a pleasure seeing Stew Wright. Thank you for this consult. Entered by: Akash Sanon MD Jul 20, 2017 12:11
--- NOTE | 2017-07-20 14:06 | HHI.PR ---
Subjective Remarks 81-year-old male who lives in an assisted living facility and has a history of unsteadiness fell this morning and this left chest against a drawer and subsequently had significant left-sided chest pain with inspiration. He was brought to the ER and underwent a CT chest which revealed a subpleural mass consistent with hematoma and rib fractures involving the left chest wall. Patient was accepted for admission by critical care medicine service. He is not on any anticoagulation. He uses aspirin daily. I evaluated the patient following his arrival to the ICU. At that time he was on 2 L nasal cannula and complaining of chest wall pain. He told me that as long as he does not take deep breaths he does not have much pain however has significant left-sided chest wall pain with deep breathing and movement. 11-6 FOR EGD AND DILATATION TODAY WITH GI DENIES ANY SOB HAS SOME PAIN WHEN MOVES WRONG FROM THE RIB FRACTURES 07-20 HAD EGD AND DILATATION YESTERDAY WITH GI DC TO SNF [facility] DW RN AND PT AND CM 3008 FILLED OUT Objective Vitals Vital Signs Date Time Temp Pulse Resp B/P (MAP) Pulse Ox O2 Delivery O2 Flow Rate FiO2 07/20/17 11:15 97.4 96 18 145/68 (93) 95 07/20/17 08:30 99.0 75 18 114/60 (78) 94 07/20/17 00:38 98.4 82 18 146/69 (94) 96 07/19/17 20:45 97.1 80 18 151/76 (101) 94 07/19/17 16:00 96.6 81 18 154/76 (102) 95 I/O 07/19/17 07/19/17 07/19/17 07/20/17 07/20/17 07/20/17 07:00 15:00 23:00 07:00 15:00 23:00 Intake Total 1000 ml 225 ml 680 ml 1000 ml Output Total 1150 ml 450 ml 1200 ml Balance -1150 ml 1000 ml -225 ml -520 ml 1000 ml Intake Oral 75 ml 680 ml IV Total 1000 ml 1000 ml Other 150 ml Output Urine Total 1150 ml 450 ml 1200 ml # Bowel Movements 7 0 Result Diagram: 07/19/17 1015 07/19/17 1015 Other Results Laboratory Tests Test 07/18/17 12:30 07/19/17 10:15 White Blood Count 8.6 TH/MM3 7.4 TH/MM3 Red Blood Count 2.88 MIL/MM3 3.06 MIL/MM3 Hemoglobin 9.0 GM/DL 9.7 GM/DL Hematocrit 26.5 % 27.8 % Mean Corpuscular Volume 92.0 FL 91.1 FL Mean Corpuscular Hemoglobin 31.5 PG 31.8 PG Mean Corpuscular Hemoglobin Concent 34.2 % 34.9 % Red Cell Distribution Width 12.8 % 13.4 % Platelet Count 213 TH/MM3 243 TH/MM3 Mean Platelet Volume 7.6 FL 7.3 FL Neutrophils (%) (Auto) 84.4 % Lymphocytes (%) (Auto) 5.2 % Monocytes (%) (Auto) 9.6 % Eosinophils (%) (Auto) 0.5 % Basophils (%) (Auto) 0.3 % Neutrophils # (Auto) 7.3 TH/MM3 Lymphocytes # (Auto) 0.4 TH/MM3 Monocytes # (Auto) 0.8 TH/MM3 Eosinophils # (Auto) 0.0 TH/MM3 Basophils # (Auto) 0.0 TH/MM3 CBC Comment DIFF FINAL Differential Comment Blood Urea Nitrogen 11 MG/DL 14 MG/DL Creatinine 0.44 MG/DL 0.60 MG/DL Random Glucose 124 MG/DL 123 MG/DL Calcium Level 8.1 MG/DL 8.9 MG/DL Sodium Level 133 MEQ/L 132 MEQ/L Potassium Level 3.3 MEQ/L 3.4 MEQ/L Chloride Level 97 MEQ/L 94 MEQ/L Carbon Dioxide Level 25.9 MEQ/L 26.6 MEQ/L Anion Gap 10 MEQ/L 11 MEQ/L Estimat Glomerular Filtration Rate 185 ML/MIN 129 ML/MIN Imaging Last Impressions Chest X-Ray 07/19/17 0000 Signed Impressions: Service Date/Time: Wednesday, July 19, 2017 08:51 - CONCLUSION: Persistent consolidation and effusion on the left, slowly improving in the interval. Joshua Barillas MD FACR Head CT 07/18/17 0000 Signed Impressions: Service Date/Time: Tuesday, July 18, 2017 03:44 - CONCLUSION: No acute intracranial findings. Higinio Chapman MD Chest CT 07/14/17 0607 Signed Impressions: Service Date/Time: Friday, July 14, 2017 06:17 - CONCLUSION: Large posterior left chest mass is likely subpleural hematoma. See above discussion. Stew Gunn MD Humerus X-Ray 07/14/17 0000 Signed Impressions: Service Date/Time: Friday, July 14, 2017 05:04 - CONCLUSION: Unremarkable examination of the left humerus. Stew Gunn MD Objective Remarks GENERAL: Awake alert talkative and cooperative SKIN: Warm and dry. HEAD: Atraumatic. Normocephalic. EYES: Pupils equal and round. No scleral icterus. No injection or drainage. Extraocular muscles intact ENT: No nasal bleeding or discharge. Mucous membranes pink and moist. Tongue is midline NECK: Trachea midline. No JVD. Supple CARDIOVASCULAR: Regular rate and rhythm. S1-S2 no S3 or S4 RESPIRATORY: No accessory muscle use. Clear to auscultation. Breath sounds equal bilaterally. GASTROINTESTINAL: Abdomen soft, non-tender, nondistended. Hepatic and splenic margins not palpable. MUSCULOSKELETAL: Extremities without clubbing, cyanosis, or edema. No obvious deformities. NEUROLOGICAL: Awake and alert. No obvious cranial nerve deficits. Motor grossly within normal limits. Five out of 5 muscle strength in the arms and legs. Normal speech. PSYCHIATRIC: Appropriate mood and affect; insight and judgment normal. Procedures CHEST TUBE ASSESSMENT/PLAN: 1. Dysphagia--worsening over last few months. 2. Hx of esophageal strictures-requiring dilation 3. Schatzki's ring-s/p dilation 11-6 Medications and IVs Current Medications Oxycodone/ Acetaminophen (Percocet 5-325 Mg) 1 tab ONCE ONCE PO Last administered on 07/14/17 05:41; Start 07/14/17 at 05:45; Stop 07/14/17 at 05:46 ; Status DC Ondansetron HCl (Zofran Odt) 4 mg ONCE ONCE PO Last administered on 05:46; Start 07/14/17 at 05:45; Stop 07/14/17 at 05:46; Status DC Sodium Chloride (NS Flush) 2 ml UNSCH PRN IVF FLUSH AFTER USING IV ACCESS; Start 07/14/17 at 06:30; Stop 07/14/17 at 07:20; Status DC Sodium Chloride 1,000 ml @ 42 mls/hr [id number] IV Last administered on 10:55; Start 07/14/17 at 08:00 Sodium Chloride (NS Flush) 2 ml UNSCH PRN IV FLUSH FLUSH AFTER USING IV ACCESS Last administered on 07/16/17 17:39; Start 07/14/17 at 07:15 Sodium Chloride (NS Flush) 2 ml BID IV FLUSH Last administered on 07/19/17 21: 00; Start 07/14/17 at 09:00 Acetaminophen (Tylenol) 650 mg Q6H PRN PO FEVER >101F; Start 07/14/17 at 07:15 Oxycodone/ Acetaminophen (Percocet 5-325 Mg) 1 tab Q4H PRN PO PAIN GREATER THAN 5 Last administered on 07/17/17 20:30; Start 07/14/17 at 07:15 Morphine Sulfate (Morphine Inj) 4 mg Q2HR PRN IV PUSH PAIN SCALE 6 TO 10 Last administered on 07/18/17 00:02; Start 07/14/17 at 07:15; Stop 07/18/17 at 14:38 ; Status DC Ondansetron HCl (Zofran Inj) 4 mg Q6H PRN IV PUSH NAUSEA OR VOMITING; Start at 07:15 Zolpidem Tartrate (Ambien) 5 mg HS PRN PO INSOMNIA Last administered on 21:43; Start 07/14/17 at 21:00; Stop 07/18/17 at 10:49; Status DC Albuterol/ Ipratropium (Duoneb Neb) 1 ampule Q2HR NEB PRN INH WHEEZING; Start 07/14/17 at 07:15 Miscellaneous Information 1 Q361D XX ; Start 07/14/17 at 07:15 Chlorhexidine Gluconate (Chlorhexidine 2% Cloth) Taper DAILY@04 TOP Last administered on 07/15/17 04:00; Start 07/15/17 at 04:00; Stop 07/11/18 at 03: 59 Chlorhexidine Gluconate (Chlorhexidine 2% Cloth) 3 pack UNSCH PRN TOP HYGIENIC CARE; Start 07/14/17 at 07:15 Senna/Docusate Sodium (Olya-Colace) 1 tab BID PO Last administered on 21:51; Start 07/14/17 at 09:00 Magnesium Hydroxide (Milk Of Magnesia Liq) 30 ml Q12H PRN PO Mild constipation ; Start 07/14/17 at 07:15 Sennosides (Senokot) 17.2 mg Q12H PRN PO Moderate constipation; Start 07/14/17 at 07:15 Bisacodyl (Dulcolax Supp) 10 mg DAILY PRN RECTAL SEVERE CONSITIPATION; Start 07/14/17 at 07:15 Lactulose (Lactulose Liq) 30 ml DAILY PRN PO SEVERE CONSITIPATION Last administered on 07/16/17 08:36; Start 07/14/17 at 07:15 Sodium Chloride 1,000 ml @ 999 mls/hr BOLUS ONCE IV Last administered on 07/14 07:49; Start 07/14/17 at 07:30; Stop 07/14/17 at 08:30; Status DC Atorvastatin Calcium (Lipitor) 10 mg HS PO Last administered on 07/19/17 21:51 ; Start 07/14/17 at 21:00 Finasteride (Proscar) 5 mg DAILY PO Last administered on 07/20/17 09:10; Start 07/15/17 at 09:00 Pantoprazole Sodium (Protonix) 20 mg DAILY PO Last administered on 07/20/17 09 :11; Start 07/15/17 at 09:00 Lidocaine HCl (Xylocaine 1% Inj (50 ml)) 50 ml STK-MED ONCE .ROUTE Last administered on 07/14/17 16:04; Start 07/14/17 at 15:02; Stop 07/14/17 at 15:03 ; Status DC Midazolam HCl (Versed Inj) 5 mg STK-MED ONCE .ROUTE Last administered on 16:03; Start 07/14/17 at 15:02; Stop 07/14/17 at 15:03; Status DC Non-Formulary Medication 1 tab DAILY PO ; Start 07/17/17 at 09:00; Status Cancel Losartan Potassium (Cozaar) 50 mg DAILY PO Last administered on 07/20/17 09:10 ; Start 07/17/17 at 09:00 Hydrochlorothiazide (Microzide) 12.5 mg DAILY PO Last administered on 09:02; Start 07/17/17 at 09:00; Stop 07/18/17 at 10:52; Status DC Furosemide (Lasix Inj) 20 mg ONCE ONCE IV PUSH Last administered on 07/17/17 01:32; Start 07/17/17 at 01:15; Stop 07/17/17 at 01:16; Status DC Potassium Bicarb/ Potassium Chloride (K-Lyte Cl Eff) 25 meq ONCE ONCE PO Last administered on 07/17/17 10:32; Start 07/17/17 at 10:00; Stop 07/17/17 at 10:01; Status DC Enalaprilat (Vasotec Inj) 2.5 mg ONCE ONCE IV PUSH Last administered on 03:24; Start 07/18/17 at 03:00; Stop 07/18/17 at 03:01; Status DC Hydrochlorothiazide (Microzide) 25 mg DAILY PO Last administered on 07/20/17 09:10; Start 07/19/17 at 09:00 Amlodipine Besylate (Norvasc) 5 mg ONCE ONCE PO Last administered on 11:56; Start 07/18/17 at 11:00; Stop 07/18/17 at 11:18; Status DC Amlodipine Besylate (Norvasc) 5 mg DAILY PO Last administered on 07/20/17 09: 10; Start 07/19/17 at 09:00 Hydrochlorothiazide (Microzide) 12.5 mg ONCE ONCE PO Last administered on 07/18 11:57; Start 07/18/17 at 11:00; Stop 07/18/17 at 11:18; Status DC Potassium Bicarb/ Potassium Chloride (K-Lyte Cl Eff) 25 meq Q12HR NG Last administered on 07/20/17 09:10; Start 07/18/17 at 21:00 Potassium Bicarb/ Potassium Chloride (K-Lyte Cl Eff) 25 meq ONCE ONCE PO Last administered on 07/18/17 16:18; Start 07/18/17 at 15:00; Stop 07/18/17 at 15:01; Status DC Lactated Ringer's 1,000 ml @ 30 mls/hr Q24H PRN IV SEE LABEL COMMENTS; Start 07/19/17 at 14:00; Stop 07/22/17 at 13:59 Sodium Chloride 500 ml @ 30 mls/hr [id number] PRN IV SEE LABEL COMMENTS; Start at 14:00; Stop 07/22/17 at 13:59 Metoprolol Tartrate (Lopressor) 25 mg LEARNING DEVELOPMENT SPECIALIST PRN PO SEE LABEL COMMENTS; Start 07/19/17 at 14:00; Stop 07/22/17 at 13:59 Povidone Iodine (Betadine 5% Antisepsis Kit) 1 applic LEARNING DEVELOPMENT SPECIALIST PRN EACH NARE SEE LABEL COMMENTS; Start 07/19/17 at 14:00; Stop 07/22/17 at 13:59 Chlorhexidine Gluconate (Chlorhexidine 2% Cloth) 3 pack LEARNING DEVELOPMENT SPECIALIST PRN TOPICAL SEE LABEL COMMENTS; Start 07/19/17 at 14:00; Stop 07/22/17 at 13:59 Insulin Human Regular (NovoLIN R INJ) See Protocol Table ... LEARNING DEVELOPMENT SPECIALIST PRN SQ SEE PROTOCOL TABLE; Start 07/19/17 at 14:00; Stop 07/22/17 at 13:59 Acetaminophen (Tylenol) 650 mg Q4H PRN PO 1-2 PRN PAIN Last administered on t 09:11; Start 07/19/17 at 17:30 Flumazenil (Romazicon Inj) 0.2 mg UNSCH X1 PRN IV PUSH OVERSEDATION; Start 07/19/17 at 18:00; Stop 07/20/17 at 17:59 Flumazenil (Romazicon Inj) 0.2 mg Q1M PRN IV PUSH OVERSEDATION; Start 07/19/17 at 18:00; Stop 07/20/17 at 17:59 Naloxone HCl (Narcan Inj) 0.1 mg Q2M PRN IV PUSH OVERSEDATION; Start 07/19/17 at 18:00; Stop 07/20/17 at 17:59 Urinary Catheter: No Vascular Central Line Catheter: No A/P Assessment and Plan Assessment and Plan In summary, this is a 81-year-old male admitted with left subpleural hematoma secondary to left-sided rib fracture secondary to fall. Patient has been followed by CT surgery. He had a chest tube in place. He became confused overnight on 07-17 probably secondary to Ambien and fell out of bed. His chest tube came out. CT surgery is aware. Patient is currently stable on a nasal cannula. He also has esophageal strictures. He has been seen by GI with plan for dilation TODAY--HAS clearance from pulmonology. Pulmonology has been consulted to evaluate him for the residual pleural effusion since the chest tube came out. Left-sided rib fracture with left subpleural hematoma-status post pigtail insertion, thoracic surgery following. 07/18 chest tube came out after the patient fell. He was confused. CT surgery aware. Hemodynamically stable. Stable from a respiratory standpoint. Pulmonology consulted. Follow-up CBC tomorrow. Aspirin on hold. Cleared by pulmonary for GI procedures Dysphagia: History of esophageal strictures requiring dilation. FOR DILATATION TODAY WITH GI -Patient evaluated by GI. Will need pulmonary clearance prior to endoscopy/ dilation as patient will need to lay on his left side. Pulmonology consulted-- cleared by pulmonary for GI procedures Hypokalemia: Replace and monitor. We'll replace again Fall secondary to physical deconditioning-consult physical therapy for evaluation. Recommends SNF placement. Hypertension -Resume home dose antihypertensives. . Hypercholesterolemia continue home medication [employer] DVT prophylaxis: SCDs, pharmacological prophylaxis contraindicated because of bleed. NEEDS PT AND OT Discharge Planning DC TO SNF TODAY NEEDS REHAB Joshua Angeles DO Jul 20, 2017 14:06
[2017-07-20] MEDS ORDERED: ACET325T15 PO ×2 (14:12)
[2017-07-20] MEDS ORDERED: Lactulose Liq PO (14:12)
[2017-07-20] MEDS ORDERED: AMLO5 PO (14:12)
[2017-07-20] MEDS ORDERED: OXYC1TAB63 PO (14:12)
[2017-07-20] MEDS ORDERED: IPRASOL INH (14:12)
[2017-07-20] MEDS ORDERED: MAGN400S PO (14:12)
[2017-07-20] MEDS ORDERED: OMEP20TA93 PO (14:12)
[2017-07-20] MEDS ORDERED: MEGESTROL ACETATE 40 MG TAB PO SCH (14:15)
--- NOTE | 2017-07-20 14:18 | HHI.DS ---
Discharge Summary Admission Date Jul 14, 2017 at 07:08 Discharge Date: Jul 20, 2017 Admitting Diagnosis Fall, L Posterior Rib Fractures, L Hemothorax (1) Family history of hypertension ICD Code: Z82.49 - Family history of hypertension Diagnosis: Secondary (2) Rib fractures ICD Code: S22.39XA - Fracture of one rib, unspecified side, initial encounter for closed fracture Diagnosis: Principal Status: Acute (3) Hemothorax on left ICD Code: J94.2 - Hemothorax Diagnosis: Principal Status: Acute (4) Obstruction of esophagus due to food impaction ICD Code: K22.2 - Esophageal obstruction; T18.128A - Food in esophagus causing other injury, initial encounter Diagnosis: Principal Status: Acute (5) Generalized weakness ICD Code: R53.1 - Weakness Diagnosis: Secondary Status: Acute (6) HTN (hypertension) ICD Code: I10 - Essential (primary) hypertension Diagnosis: Secondary Status: Chronic (7) inability to care for self Diagnosis: Principal Status: Acute (8) Dysphagia ICD Code: R13.10 - Dysphagia, unspecified Diagnosis: Principal Status: Acute Procedures CHEST TUBE ASSESSMENT/PLAN: 1. Dysphagia--worsening over last few months. 2. Hx of esophageal strictures-requiring dilation 3. Schatzki's ring-s/p dilation 11-6 Brief History - From Admission HPI 81-year-old male who lives in an assisted living facility and has a history of unsteadiness fell this morning and this left chest against a drawer and subsequently had significant left-sided chest pain with inspiration. He was brought to the ER and underwent a CT chest which revealed a subpleural mass consistent with hematoma and rib fractures involving the left chest wall. Patient was accepted for admission by critical care medicine service. He is not on any anticoagulation. He uses aspirin daily. I evaluated the patient following his arrival to the ICU. At that time he was on 2 L nasal cannula and complaining of chest wall pain. He told me that as long as he does not take deep breaths he does not have much pain however has significant left-sided chest wall pain with deep breathing and movement. History PFSH Past Medical History Hx Anticoagulant Therapy: Yes (ASPIRIN 81) Arthritis: Yes (GENARALIZED) Blood Disorders: No Cancer: Yes (SKIN,PROSTATE) Cardiovascular Problems: Yes High Cholesterol: Yes Chest Pain: Yes (IN LAST 4 MOS.) Diminished Hearing: No Endocrine: No Gastrointestinal Disorders: Yes GERD: Yes Genitourinary: Yes Hypertension: Yes Implanted Vascular Access Dvce: Yes Medical other: Yes (KELLY'S ESOPHAGUS) Musculoskeletal: Yes Neurologic: No Psychiatric: No Reproductive: No Respiratory: Yes Immunizations Current: Yes Radiation Therapy: Yes (HX) Tetanus Vaccination: Unknown Influenza Vaccination: No Past Surgical History Body Medical Devices: RIGHT TIBIA PLATE Genitourinary Surgery: Yes (CYSTOSCOPY-PROSTATE BIOPSY-2002) Tonsillectomy: Yes Other Surgery: Yes Social History Alcohol Use: Yes (OCCASIONALLY) Tobacco Use: No Substance Use: No Allergies-Medications Allergies-Medications (Allergen,Severity, Reaction): Coded Allergies: No Known Allergies (Verified , 08/24/16) Reported Meds & Prescriptions Reported Meds & Active Scripts Active Reported Omeprazole 20 Mg Tab 20 Mg PO DAILY Aspirin Children's (Aspirin) 81 Mg Chew 81 Mg CHEW DAILY Atacand Hct (Candesartan-Hydrochlorothiazide) 16-12.5 Mg Tab 1 Tab PO DAILY Lipitor (Atorvastatin Calcium) 10 Mg Tab 1 Tab PO HS Proscar (Finasteride) 5 Mg Tab 1 Tab PO DAILY Do not crush. ROS Review of Systems Per history of present illness. Significant unsteadiness which has been ongoing. Otherwise negative CBC/BMP: 07/19/17 1015 07/19/17 1015 Significant Findings Laboratory Tests Test 07/18/17 12:30 07/19/17 10:15 Red Blood Count 2.88 MIL/MM3 (4.50-5.90) 3.06 MIL/MM3 (4.50-5.90) Hemoglobin 9.0 GM/DL (13.0-17.0) 9.7 GM/DL (13.0-17.0) Hematocrit 26.5 % (39.0-51.0) 27.8 % (39.0-51.0) Neutrophils (%) (Auto) 84.4 % (16.0-70.0) Lymphocytes (%) (Auto) 5.2 % (9.0-44.0) Monocytes (%) (Auto) 9.6 % (0.0-8.0) Lymphocytes # (Auto) 0.4 TH/MM3 (1.0-4.8) Creatinine 0.44 MG/DL (0.60-1.30) Random Glucose 124 MG/DL (74-106) 123 MG/DL (74-106) Calcium Level 8.1 MG/DL (8.5-10.1) Sodium Level 133 MEQ/L (136-145) 132 MEQ/L (136-145) Potassium Level 3.3 MEQ/L (3.5-5.1) 3.4 MEQ/L (3.5-5.1) Chloride Level 97 MEQ/L (98-107) 94 MEQ/L (98-107) Imaging Last Impressions Chest X-Ray 07/19/17 0000 Signed Impressions: Service Date/Time: Wednesday, July 19, 2017 08:51 - CONCLUSION: Persistent consolidation and effusion on the left, slowly improving in the interval. Joshua Barillas MD FACR Head CT 07/18/17 0000 Signed Impressions: Service Date/Time: Tuesday, July 18, 2017 03:44 - CONCLUSION: No acute intracranial findings. Higinio Chapman MD Chest CT 07/14/17 0607 Signed Impressions: Service Date/Time: Friday, July 14, 2017 06:17 - CONCLUSION: Large posterior left chest mass is likely subpleural hematoma. See above discussion. Stew Gunn MD Humerus X-Ray 07/14/17 0000 Signed Impressions: Service Date/Time: Friday, July 14, 2017 05:04 - CONCLUSION: Unremarkable examination of the left humerus. Stew Gunn MD PE at Discharge GENERAL: Awake alert talkative and cooperative SKIN: Warm and dry. HEAD: Atraumatic. Normocephalic. EYES: Pupils equal and round. No scleral icterus. No injection or drainage. Extraocular muscles intact ENT: No nasal bleeding or discharge. Mucous membranes pink and moist. Tongue is midline NECK: Trachea midline. No JVD. Supple CARDIOVASCULAR: Regular rate and rhythm. S1-S2 no S3 or S4 RESPIRATORY: No accessory muscle use. Clear to auscultation. Breath sounds equal bilaterally. GASTROINTESTINAL: Abdomen soft, non-tender, nondistended. Hepatic and splenic margins not palpable. MUSCULOSKELETAL: Extremities without clubbing, cyanosis, or edema. No obvious deformities. NEUROLOGICAL: Awake and alert. No obvious cranial nerve deficits. Motor grossly within normal limits. Five out of 5 muscle strength in the arms and legs. Normal speech. PSYCHIATRIC: Appropriate mood and affect; insight and judgment normal. Hospital Course 81-year-old male who lives in an assisted living facility and has a history of unsteadiness fell this morning and this left chest against a drawer and subsequently had significant left-sided chest pain with inspiration. He was brought to the ER and underwent a CT chest which revealed a subpleural mass consistent with hematoma and rib fractures involving the left chest wall. Patient was accepted for admission by critical care medicine service. He is not on any anticoagulation. He uses aspirin daily. I evaluated the patient following his arrival to the ICU. At that time he was on 2 L nasal cannula and complaining of chest wall pain. He told me that as long as he does not take deep breaths he does not have much pain however has significant left-sided chest wall pain with deep breathing and movement. 11-6 FOR EGD AND DILATATION TODAY WITH GI DENIES ANY SOB HAS SOME PAIN WHEN MOVES WRONG FROM THE RIB FRACTURES 11-7 HAD EGD AND DILATATION YESTERDAY WITH GI DC TO SNF [facility] DW RN AND PT AND CM 3008 FILLED OUT Pt Condition on Discharge: Fair Discharge Disposition: Discharge to SNF Discharge Time: > 30 minutes Discharge Instructions DIET: Follow Instructions for: Heart Healthy Diet, Diabetic Diet Speech Therapy-Diet Recommends: Regular Activities you can perform: Weight Bearing as Karmen, Full Weight Bearing Other Activity Instructions: FALL PRECAUTIONS Follow up Referrals: Gastroenterology - 2 Weeks with Hero Palafox MD PCP Follow-up - 2 Weeks with Ignacio Das MD Pulmonology - 2 Weeks with Wayne Black MD New Medications: Acetaminophen (Eq Acetaminophen) 325 Mg Tab 650 MG PO Q4H PRN for 1-2 PRN PAIN, #180 TAB Acetaminophen (Eq Acetaminophen) 325 Mg Tab 650 MG PO Q6H PRN for FEVER >101F, #180 TAB Amlodipine (Norvasc) 5 Mg Tab 5 MG PO DAILY for Blood Pressure Management, #30 TAB Ipratropium-Albuterol Neb (Duoneb) 0.5-2.5 Mg/3 Ml Neb 1 AMPULE INH Q2HR NEB PRN for WHEEZING, #180 ML Magnesium Hydroxide (Eq Milk of Magnesia) 400 Mg/5 Ml Tessy 30 ML PO Q12H PRN for Mild constipation, #900 ML Oxycodone-Acetaminophen (Oxycodone-Acetaminophen) 5-325 mg Tab 1 TAB PO Q4H PRN for PAIN GREATER THAN 5, #60 TAB [Lactulose Liq] () 30 ML SYRP 30 ML PO DAILY PRN for SEVERE CONSITIPATION, #900 Changed Medications: Omeprazole (Omeprazole) 20 Mg Tab 20 MG PO BID for Heartburn Management, #60 TAB 0 Refills (Changed from: DAILY; 30) Continued Medications: Aspirin (Aspirin Children's) 81 Mg Chew 81 MG CHEW DAILY, TAB 0 Refills Atorvastatin (Lipitor) 10 Mg Tab 1 TAB PO HS for Cholesterol Management, #30 TAB 0 Refills Candesartan-Hydrochlorothiazide (Atacand Hct) 16-12.5 Mg Tab 1 TAB PO DAILY for Blood Pressure Management, #30 TAB 0 Refills Finasteride (Proscar) 5 Mg Tab 1 TAB PO DAILY for Manage Prostate Problems, #30 TAB 0 Refills Do not crush. Joshua Angeles DO Jul 20, 2017 14:18
[2017-07-20 16:00] VITALS: BP 137/67; PULSE 72; RESP 19; TEMP 97.6; O2SAT 96
--- NOTE | 2017-07-20 16:38 | HHI.PR ---
Subjective Remarks ALERT NO SOB Objective Vital Signs Date Time Temp Pulse Resp B/P (MAP) Pulse Ox O2 Delivery O2 Flow Rate FiO2 07/20/17 16:00 97.6 72 19 137/67 (90) 96 07/20/17 11:15 97.4 96 18 145/68 (93) 95 07/20/17 08:30 99.0 75 18 114/60 (78) 94 07/20/17 00:38 98.4 82 18 146/69 (94) 96 07/19/17 20:45 97.1 80 18 151/76 (101) 94 I/O 07/19/17 07/19/17 07/19/17 07/20/17 07/20/17 07/20/17 07:00 15:00 23:00 07:00 15:00 23:00 Intake Total 1000 ml 225 ml 680 ml 1000 ml Output Total 1150 ml 450 ml 1200 ml Balance -1150 ml 1000 ml -225 ml -520 ml 1000 ml Intake Oral 75 ml 680 ml IV Total 1000 ml 1000 ml Other 150 ml Output Urine Total 1150 ml 450 ml 1200 ml # Bowel Movements 7 0 Result Diagram: 07/19/17 1015 07/19/17 1015 Objective Remarks GENERAL: SKIN: Warm and dry. HEAD: Atraumatic. Normocephalic. EYES: Pupils equal and round. No scleral icterus. No injection or drainage. ENT: No nasal bleeding or discharge. Mucous membranes pink and moist. NECK: Trachea midline. No JVD. CARDIOVASCULAR: Regular rate and rhythm. RESPIRATORY: No accessory muscle use. Clear to auscultation. Breath sounds equal bilaterally. GASTROINTESTINAL: Abdomen soft, non-tender, nondistended. Hepatic and splenic margins not palpable. MUSCULOSKELETAL: Extremities without clubbing, cyanosis, or edema. No obvious deformities. NEUROLOGICAL: Awake and alert. No obvious cranial nerve deficits. Motor grossly within normal limits. Five out of 5 muscle strength in the arms and legs. Normal speech. PSYCHIATRIC: Appropriate mood and affect; insight and judgment normal. Assessment and Plan Assessment and Plan RIB FX AND HEMOTHORAX STABLE CXRAY IMPROVING PLAN INCREASE ACTIVITY Wayne Black MD Jul 20, 2017 16:38
[2017-07-20 17:05] VITALS: O2SAT 96
--- NOTE | 2017-07-20 18:47 | EKG ---
Date Performed: 07/19/2017 Time Performed: 14:22:00 PTAGE: 81 years EKG: Sinus rhythm WITH FREQUENT SUPRAVENTRICULAR PREMATURE COMPLEXES MINIMAL ST DEPRESSION ABNORMAL RHYTHM ECG Compare d to prior tracing no significant change PREVIOUS TRACING : 01/31/2016 14.11 DOCTOR: Ale Can Interpretating Date/Time 07/20/2017 18:46:42
== END 2017-07-20 20:15 | DRG 200 ==
LOC: NEPC 04:37 → NEDA 07:08 → N03B 08:30 → N07A 07-15 21:20
PROVIDERS: ADMIT Hospitalist; ATTEND Hospitalist
PROC: 0W9B30Z Drainage of Left Pleural Cavity with Drainage Device, Percutaneous Approach (ICD-10-PCS; principal; 2017-07-14)
PROC: 0T9B70Z Drainage of Bladder with Drainage Device, Via Natural or Artificial Opening (ICD-10-PCS; 2017-07-16)
PROC: 0D748ZZ Dilation of Esophagogastric Junction, Via Natural or Artificial Opening Endoscopic (ICD-10-PCS; 2017-07-19)
PROC: 0DB38ZX Excision of Lower Esophagus, Via Natural or Artificial Opening Endoscopic, Diagnostic (ICD-10-PCS; 2017-07-19)
PROC: 0DB28ZX Excision of Middle Esophagus, Via Natural or Artificial Opening Endoscopic, Diagnostic (ICD-10-PCS; 2017-07-19)
DX: S27.2XXA Traumatic hemopneumothorax, initial encounter (principal); S22.42XA Multiple fractures of ribs, left side, initial encounter for closed fracture; J90 Pleural effusion, not elsewhere classified; I10 Essential (primary) hypertension; E87.6 Hypokalemia; E78.00 Pure hypercholesterolemia, unspecified; I25.10 Atherosclerotic heart disease of native coronary artery without angina pectoris; K21.9 Gastro-esophageal reflux disease without esophagitis; K22.70 Barrett's esophagus without dysplasia; N40.1 Benign prostatic hyperplasia with lower urinary tract symptoms; M19.90 Unspecified osteoarthritis, unspecified site; R26.81 Unsteadiness on feet; K44.9 Diaphragmatic hernia without obstruction or gangrene; R53.1 Weakness; K22.2 Esophageal obstruction; R33.8 Other retention of urine; W18.30XA Fall on same level, unspecified, initial encounter; W01.190A Fall on same level from slipping, tripping and stumbling with subsequent striking against furniture, initial encounter; Y92.230 Patient room in hospital as the place of occurrence of the external cause; S01.01XA Laceration without foreign body of scalp, initial encounter; Z79.82 Long term (current) use of aspirin; Y92.099 Unspecified place in other non-institutional residence as the place of occurrence of the external cause; Z85.46 Personal history of malignant neoplasm of prostate; Z85.828 Personal history of other malignant neoplasm of skin
CPT/HCPCS: 70450; 71010; 71020; 71250; 73060; 80048; 80076; 85025; 85027; 85610; 85730; 86850; 86900; 86901; 88305; 93005; 99285; C1729; J1940; J2250; J2270; J7030

== ENCOUNTER 2017-08-16 12:55 | Inpatient (IN) | payer MEDICARE, OTHER ==
[~2017-08-16] VITALS: Ht 185.4 cm; Wt 89.8 kg
[2017-08-16] VITALS (7 sets, daily range): BP systolic 134–158; BP diastolic 64–88; PULSE 64–76; RESP 18–20; TEMP 97.8–98.7; O2SAT 98–100
[~2017-08-16 12:55] MED LIST changes: +ACET325T15 PO; +AMLO5 PO; -ASPI1TAB69 PO; +ASPI81CH7 CHEW; +FURO40TA PO; +IPRASOL INH; +LEVO750T3 PO; +Lactulose Liq PO; +MAGN400S PO; +MILKSUS PO; -MIRA33504 PO; +OMEP20TA93 PO; +OXYC1TAB63 PO; +POLY17S PO; +POTA10CA PO; -PRIL20CA9 PO; +TRAZ50TA12 PO
[2017-08-16] MEDS ORDERED: COLA100C5 PO (13:24)
[2017-08-16 14:02] LABS: BASOPHIL % 0.6 % (0.0-2.0); EOSINOPHIL # 0.3 TH/MM3 (0-0.4); EOSINOPHIL % 4.9 % (0.0-4.0); HEMATOCRIT 30.9 % (39.0-51.0); LYMPH % 10.3 % (9.0-44.0); LYMPHOCYTE # 0.6 TH/MM3 (1.0-4.8); MEAN CELL VOLUME 88.5 FL (80.0-100.0); MEAN CORPUSCULAR HEMOGLOBIN 30.6 PG (27.0-34.0); MEAN CORPUSCULAR HGB CONC 34.6 % (32.0-36.0); MONO % 11.1 % (0.0-8.0); NEUT % 73.1 % (16.0-70.0); PLATELET COUNT 321 TH/MM3 (150-450); RED BLOOD COUNT 3.49 MIL/MM3 (4.50-5.90); RED CELL DISTRIBUTION WIDTH 13.7 % (11.6-17.2); WHITE BLOOD COUNT 5.4 TH/MM3 (4.0-11.0)
--- NOTE | 2017-08-16 14:06 | PD ---
HPI Chief Complaint: Respiratory Symptoms Time Seen by Provider: 13:10 Travel History International Travel<30 days: No Contact w/Intl Traveler<30days: No Traveled to known affect area: No History of Present Illness HPI 82yo M with HLD, depression, BPH from assisted living was sent in by Dr. Naomi Farnsworth for worsening pneumonia. Pt has been having cough, sob for a few days and had CXR at [facility] today that showed increased left pulmonary consolidation compare to prior exam on 08/11/17. Pt has been on levofloxacin 750mg and today is day 4. He said his symptoms are not improving. Denies any fever, chest pain, n/v, abdominal pain, focal weakness or numbness. PFSH Past Medical History Hx Anticoagulant Therapy: Yes (ASPIRIN 81) Arthritis: Yes (GENARALIZED) Blood Disorders: No Cancer: Yes (SKIN,PROSTATE) Cardiovascular Problems: Yes (HTN) High Cholesterol: Yes Chest Pain: Yes (IN LAST 4 MOS.) Diminished Hearing: No Endocrine: No Gastrointestinal Disorders: Yes GERD: Yes Genitourinary: Yes Hypertension: Yes Implanted Vascular Access Dvce: Yes Musculoskeletal: Yes Neurologic: No Psychiatric: No Reproductive: No Respiratory: Yes Immunizations Current: Yes Radiation Therapy: Yes (HX) Tetanus Vaccination: > 5 Years Influenza Vaccination: No Past Surgical History Body Medical Devices: RIGHT TIBIA PLATE Genitourinary Surgery: Yes (CYSTOSCOPY-PROSTATE BIOPSY-2002) Tonsillectomy: Yes Other Surgery: Yes Social History Alcohol Use: Yes (OCCASIONALLY) Tobacco Use: No Substance Use: No Allergies-Medications (Allergen,Severity, Reaction): Coded Allergies: No Known Allergies (Verified Adverse Reaction, Unknown, 08/16/17) Reported Meds & Prescriptions Reported Meds & Active Scripts Active Levofloxacin 750 Mg Tablet 750 Mg PO DAILY [Lactulose Liq] 30 ML Syrp 30 Ml PO DAILY PRN Eq Acetaminophen (Acetaminophen) 325 Mg Tab 650 Mg PO Q6H PRN Oxycodone-Acetaminophen 5-325 mg Tab 1 Tab PO Q4H PRN Duoneb (Ipratropium-Albuterol Neb) 0.5-2.5 Mg/3 Ml Neb 1 Ampule INH Q2HR NEB PRN Omeprazole 20 Mg Tab 20 Mg PO BID Reported Colace (Docusate Sodium) 100 Mg Capsule 100 Mg PO DAILY Polyethylene Glycol 3350 Powder (Polyethylene Glycol) 17 Gram Pow 17 Gm PO DAILY Trazodone (Trazodone HCl) 50 Mg Tab 50 Mg PO HS Aspirin Children's (Aspirin) 81 Mg Chew 81 Mg CHEW DAILY Atacand Hct (Candesartan-Hydrochlorothiazide) 16-12.5 Mg Tab 1 Tab PO DAILY Lipitor (Atorvastatin Calcium) 10 Mg Tab 1 Tab PO HS Proscar (Finasteride) 5 Mg Tab 1 Tab PO DAILY Do not crush. Review of Systems Except as stated in HPI: all other systems reviewed are Neg Physical Exam Narrative GENERAL: 82yo M in mild distress. SKIN: Focused skin assessment warm/dry. HEAD: Atraumatic. Normocephalic. EYES: Pupils equal and round. No scleral icterus. No injection or drainage. ENT: No nasal bleeding or discharge. Mucous membranes pink and moist. NECK: Trachea midline. No JVD. CARDIOVASCULAR: Regular rate and rhythm. No murmur appreciated. RESPIRATORY: No accessory muscle use. Decreased breath sound on left lung. GASTROINTESTINAL: Abdomen soft, non-tender, nondistended. No rebound tenderness or guarding. MUSCULOSKELETAL: No obvious deformities. No clubbing. No cyanosis. No edema. NEUROLOGICAL: Awake and alert. No obvious cranial nerve deficits. Motor grossly within normal limits. Normal speech. PSYCHIATRIC: Appropriate mood and affect; insight and judgment normal. Data Data Last Documented VS Vital Signs Date Time Temp Pulse Resp B/P (MAP) Pulse Ox O2 Delivery O2 Flow Rate FiO2 08/16/17 15:00 97.8 67 18 151/88 (109) 98 Room Air Orders Orders Complete Blood Count With Diff (08/16/17 13:25) Basic Metabolic Panel (Bmp) (08/16/17 13:25) Act Partial Throm Time (Ptt) (08/16/17 13:25) Prothrombin Time / Inr (Pt) (08/16/17 13:25) Troponin I (08/16/17 13:25) Blood Culture (08/16/17 13:25) Lactic Acid Sepsis Protocol (08/16/17 13:25) Electrocardiogram (08/16/17 13:17) Ceftriaxone Inj (Rocephin Inj) (08/16/17 15:45) Azithromycin (Zithromax) (08/16/17 15:45) Legionella Urinary Antigen (08/16/17 15:31) Vancomycin Inj (Vancomycin Inj) (08/16/17 15:45) Piperacil-Tazo 2.25 Gm Premix (Zosyn 2.2 (08/16/17 15:45) Admit Order (Ed Use Only) (08/16/17 15:46) Labs Laboratory Tests Test 08/16/17 13:45 08/16/17 14:00 White Blood Count 5.4 TH/MM3 Red Blood Count 3.49 MIL/MM3 Hemoglobin 10.7 GM/DL Hematocrit 30.9 % Mean Corpuscular Volume 88.5 FL Mean Corpuscular Hemoglobin 30.6 PG Mean Corpuscular Hemoglobin Concent 34.6 % Red Cell Distribution Width 13.7 % Platelet Count 321 TH/MM3 Mean Platelet Volume 7.5 FL Neutrophils (%) (Auto) 73.1 % Lymphocytes (%) (Auto) 10.3 % Monocytes (%) (Auto) 11.1 % Eosinophils (%) (Auto) 4.9 % Basophils (%) (Auto) 0.6 % Neutrophils # (Auto) 4.0 TH/MM3 Lymphocytes # (Auto) 0.6 TH/MM3 Monocytes # (Auto) 0.6 TH/MM3 Eosinophils # (Auto) 0.3 TH/MM3 Basophils # (Auto) 0.0 TH/MM3 CBC Comment AUTO DIFF Differential Total Cells Counted 100 Neutrophils % (Manual) 72 % Band Neutrophils % 2 % Lymphocytes % 10 % Monocytes % 10 % Eosinophils % 2 % Neutrophils # (Manual) 4.2 TH/MM3 Metamyelocytes 3 % Myelocytes 1 % Differential Comment FINAL DIFF MANUAL Platelet Estimate NORMAL Platelet Morphology Comment NORMAL Acanthocytes OCC Blood Urea Nitrogen 8 MG/DL Creatinine 0.75 MG/DL Random Glucose 105 MG/DL Calcium Level 8.7 MG/DL Sodium Level 126 MEQ/L Potassium Level 3.8 MEQ/L Chloride Level 91 MEQ/L Carbon Dioxide Level 23.7 MEQ/L Anion Gap 11 MEQ/L Estimat Glomerular Filtration Rate 100 ML/MIN Lactic Acid Level 0.8 mmol/L Troponin I LESS THAN 0.02 NG/ML Prothrombin Time 11.3 SEC Prothromb Time International Ratio 1.1 RATIO Activated Partial Thromboplast Time 29.8 SEC MDM Medical Decision Making Medical Screen Exam Complete: Yes Emergency Medical Condition: Yes Interpretation(s) EKG: NSR 70bpm. TWI III. No ST segment elevation or depression. Q wave I, V5 , V6. Differential Diagnosis Pneumonia that failed outpatient treatment Narrative Course 82yo M was sent in by PMD Dr. Naomi Farnsworth because he failed outpatient treatment for pneumonia. Pt had CXR today that showed worsening pneumonia and had been on levofloxacin after Dr. Farnsworth saw him on 08/12/17. Labs reviewed , no leukocytosis. H/H low at 10.7/30.9. Hyponatremia at 126. Will add legionella. Lactic acid normal at 0.8. Troponin negative. Pt given ceftriaxone and azithromycin. Discussed with resident physician and accepted to their service. Diagnosis Primary Impression: Pneumonia Admitting Information Admitting Physician Requests: Observation Apurva Lorenzo DO Aug 16, 2017 14:06
[2017-08-16 14:07] LABS: HEMO FLAGS AUTO DIFF
[2017-08-16 14:23] LABS: APTT (PATIENT) 29.8 SEC (24.3-30.1); INTERNATIONAL NORMALIZED RATIO 1.1 RATIO; PROTHROMBIN TIME - PATIENT 11.3 SEC (9.8-11.6)
[2017-08-16 14:30] LABS: ANION GAP 11 MEQ/L (5-15); BICARBONATE 23.7 MEQ/L (21.0-32.0); BLOOD UREA NITROGEN 8 MG/DL (7-18); CHLORIDE 91 MEQ/L (98-107); GLOMERULAR FILTRATION RATE 100 ML/MIN (>89); POTASSIUM 3.8 MEQ/L (3.5-5.1); SODIUM (NA) 126 MEQ/L (136-145)
[2017-08-16 14:39] LABS: BANDS 2 % (0-6); EOSINOPHILS 2 % (0-4); METAMYELOCYTES 3 % (0-1); MYELOCYTES 1 % (0-0); NEUTROPHIL # MANUAL DIFF 4.2 TH/MM3 (1.8-7.7); PLATELET ESTIMATE SMEAR NORMAL (NORMAL); PLATELET MORPHOLOGY NORMAL (NORMAL); POLYS (SEG NEUTROPHILS) 72 % (16-70); SCAN/DIFF FINAL DIFF MANUAL; WBC DIFF SAMPLE 100
[2017-08-16 14:40] LABS: ACANTHOCYTES OCC (NORMAL)
[2017-08-16] MEDS ORDERED: cefTRIAXone INJ 1,000 MG in SODIUM CHLORIDE 0.9% INJ 100 ML IV ONE (15:45)
[2017-08-16] MEDS ORDERED: PIPERACIL-TAZO 2.25 GM PREMIX 50 ML IV ONE (15:45)
[2017-08-16] MEDS ORDERED: AZITHROMYCIN 250 MG TAB PO ONE (15:45)
[2017-08-16] MEDS ORDERED: VANCOMYCIN INJ 1,350 MG in SODIUM CHLORID 0.9% 500 ML INJ 500 ML IV ONE (15:45)
--- NOTE | 2017-08-16 16:06 | HHI.HP ---
[facility] Service Family Medicine Primary Care Physician No Primary Care Physician Admission Diagnosis Pneumonia that failed outpatient treatment Diagnoses: International Travel<30 Days: No Contact w/Intl Traveler<30days: No Known Affected Area: No History of Present Illness Mr. Wright is a 82 y/o M presenting to the ED with worsening pneumonia per outpatient chest x-ray. From 07/14-07/20 , patient was admitted to [facility] after left posterior rib fracture and hemopneumothorax resulting in chest tube placement. After the hospitalization he was discharged to a SNF for rehabilitation prior to returning to his independent living on 08/02. Upon returning to [facility], he was found to have pneumonia with a UTI. Patient was started on Levaquin on 08/12 for 7 days. However repeat chest x -ray showed worsening pneumonia which prompted his presentation to the ED today. He reports that during this entire time frame from his admission until today he has had a chronic productive cough with yellow/green sputum, subjective fevers, shortness of breath, and chest pain resulting due to his chronic cough. He reports that he feels "awful" and has since his discharge on 07/20. He denies any residual rib pain from his fracture, but does state that his left shoulder is sore after his fall resulting in his fracture. Otherwise he has no complaints and denies any cardiac chest pain, headaches, blurry vision , NVD, abdominal pain, or calf tenderness. Review of Systems Constitutional: COMPLAINS OF: Fever, Chills, DENIES: Dizziness Eyes: DENIES: Blurred vision Ears, nose, mouth, throat: DENIES: Throat pain Respiratory: COMPLAINS OF: Cough, Sputum production, Shortness of breath, DENIES: Hemoptysis Cardiovascular: DENIES: Chest pain Gastrointestinal: DENIES: Abdominal pain, Constipation, Diarrhea, Nausea, Vomiting Genitourinary: DENIES: Hematuria, Dysuria Musculoskeletal: DENIES: Back pain Integumentary: DENIES: Rash Hematologic/lymphatic: DENIES: Lymphadenopathy Immunologic/allergic: DENIES: Urticaria Neurologic: DENIES: Headache Psychiatric: DENIES: Mood changes Past Family Social History Past Medical History HEENT: REPORTS HX OF: Cataracts (OU) Cardiovascular: REPORTS HX OF: Hyperlipidemia, Hypertension Gastrointestinal: REPORTS HX OF: GERD Musculoskeletal: REPORTS HX OF: Fractures (Right Leg 2000) Cancer - male: REPORTS HX OF: Prostate cancer Past Surgical History HEENT: REPORTS HX OF: Tonsillectomy Musculoskeletal: REPORTS HX OF: Other musculoskeletal srg (Surgery on Right Leg 2000) Allergies: Coded Allergies: No Known Allergies (Verified Adverse Reaction, Unknown, 08/16/17) Family History FH: ovarian cancer G8 SISTER Hypertension G8 FATHER Social History retired resides at [facility] living, lives by himself NOK: Daughter Lizzy Wright Alcohol intake: Occasional, last use > 1 month Tobacco: Denies history Substance use: Denies use Physical Exam Vital Signs Vital Signs Date Time Temp Pulse Resp B/P (MAP) Pulse Ox O2 Delivery O2 Flow Rate FiO2 08/16/17 15:00 97.8 67 18 151/88 (109) 98 Room Air 08/16/17 13:17 69 18 100 Room Air 08/16/17 12:57 98.7 76 18 134/64 (87) 100 Physical Exam GENERAL: This is a elderly gentleman lying in bed in no acute distress appearing cold. SKIN: No rashes, ecchymoses or lesions. Cool and dry. HEENT: Atraumatic, normocephalic with EOMI. PERRLA. Oropharynx clear without erythema or exudate. No rhinorrhea. No LAD, JVD, or thyroid abnormality appreciated. CARDIOVASCULAR: Regular rate and rhythm without murmurs, gallops, or rubs. 2+ pulses in all 4 extremities. RESPIRATORY: Decreased aeration bilaterally with no CRW appreciated. No increased work of breathing. GASTROINTESTINAL: Abdomen soft, non-tender, nondistended with positive bowel sounds. No masses appreciated. MUSCULOSKELETAL: Extremities without cyanosis or edema. No calf tenderness. NEUROLOGICAL: AAO 3. Afocal. Normal speech and judgment. Laboratory Laboratory Tests Test 08/16/17 13:45 08/16/17 14:00 White Blood Count 5.4 Red Blood Count 3.49 Hemoglobin 10.7 Hematocrit 30.9 Mean Corpuscular Volume 88.5 Mean Corpuscular Hemoglobin 30.6 Mean Corpuscular Hemoglobin Concent 34.6 Red Cell Distribution Width 13.7 Platelet Count 321 Mean Platelet Volume 7.5 Neutrophils (%) (Auto) 73.1 Lymphocytes (%) (Auto) 10.3 Monocytes (%) (Auto) 11.1 Eosinophils (%) (Auto) 4.9 Basophils (%) (Auto) 0.6 Neutrophils # (Auto) 4.0 Lymphocytes # (Auto) 0.6 Monocytes # (Auto) 0.6 Eosinophils # (Auto) 0.3 Basophils # (Auto) 0.0 CBC Comment AUTO DIFF Differential Total Cells Counted 100 Neutrophils % (Manual) 72 Band Neutrophils % 2 Lymphocytes % 10 Monocytes % 10 Eosinophils % 2 Neutrophils # (Manual) 4.2 Metamyelocytes 3 Myelocytes 1 Differential Comment FINAL DIFF MANUAL Platelet Estimate NORMAL Platelet Morphology Comment NORMAL Acanthocytes OCC Blood Urea Nitrogen 8 Creatinine 0.75 Random Glucose 105 Calcium Level 8.7 Sodium Level 126 Potassium Level 3.8 Chloride Level 91 Carbon Dioxide Level 23.7 Anion Gap 11 Estimat Glomerular Filtration Rate 100 Lactic Acid Level 0.8 Troponin I LESS THAN 0.02 Prothrombin Time 11.3 Prothromb Time International Ratio 1.1 Activated Partial Thromboplast Time 29.8 Date/Time Source Procedure Growth Status 08/16/17 13:45 Blood Peripheral Aerobic Blood Culture Pending Received 08/16/17 13:45 Blood Peripheral Anaerobic Blood Culture Pending Received Result Diagram: 08/16/17 1345 08/16/17 1345 Caprini VTE Risk Assessment Caprini VTE Risk Assessment: Mod/High Risk (score >= 2) Caprini Risk Assessment Model Point Value = 1 Point Value = 2 Point Value = 3 Point Value = 5 Age 41-60 Minor surgery BMI > 25 kg/m2 Swollen legs Varicose veins or History of unexplained or recurrent spontaneous Oral contraceptives or hormone replacement Sepsis (< 1 month) Serious lung disease, including pneumonia (< 1 month) Abnormal pulmonary function Acute myocardial infarction Congestive heart failure (< 1 month) History of inflammatory bowel disease Medical patient at bed rest Age 61-74 Arthroscopic surgery Major open surgery (> 45 min) Laparoscopic surgery (> 45 min) Malignancy Confined to bed (> 72 hours) Immobilizing plaster cast Central venous access Age >= 75 History of VTE Family history of VTE Factor V Leiden Prothrombin [id number] Lupus anticoagulant Anticardiolipin antibodies Elevated serum homocysteine Heparin-induced thrombocytopenia Other congenital or acquired thrombophilia Stroke (< 1 month) Elective arthroplasty Hip, pelvis, or leg fracture Acute spinal cord injury (< 1 month) Prophylaxis Regimen Total Risk Factor Score Risk Level Prophylaxis Regimen 0-1 Low Early ambulation 2 Moderate Order ONE of the following: *Sequential Compression Device (SCD) *Heparin 5000 units SQ BID 3-4 Higher Order ONE of the following medications: *Heparin 5000 units SQ TID *Enoxaparin/Lovenox 40 mg SQ daily (WT < 150 kg, CrCl > 30 mL/min) *Enoxaparin/Lovenox 30 mg SQ daily (WT < 150 kg, CrCl > 10-29 mL/min) *Enoxaparin/Lovenox 30 mg SQ BID (WT < 150 kg, CrCl > 30 mL/min) AND/OR *Sequential Compression Device (SCD) 5 or more Highest Order ONE of the following medications: *Heparin 5000 units SQ TID (Preferred with Epidurals) *Enoxaparin/Lovenox 40 mg SQ daily (WT < 150 kg, CrCl > 30 mL/min) *Enoxaparin/Lovenox 30 mg SQ daily (WT < 150 kg, CrCl > 10-29 mL/min) *Enoxaparin/Lovenox 30 mg SQ BID (WT < 150 kg, CrCl > 30 mL/min) AND *Sequential Compression Device (SCD) Assessment and Plan Assessment and Plan Mr. Wright is a 82 y/o M presenting to the ED with worsening pneumonia per outpatient chest x-ray admitted for outpatient treatment failure. Code Status Full code Discussed Condition With Dr. Lorenzo Problem List: (1) Pneumonia ICD Codes: J18.9 - Pneumonia, unspecified organism Status: Acute Plan: Patient presenting with pneumonia concerning for HCAP with recent hospitalization Imaging/studies/labs: [facility] imaging chest x-ray: Increased left pulmonary consolidation compared to prior exam from 08/11/17 CBC: WBC 5.4 CMP: Sodium 126 Lactic acid: 0.8 Influenza negative Legionella and strep pneumo urinary antigens: Pending Blood cultures 2: Pending Medications: Zosyn every 6 hours (08/16- ) Azithromycin daily (08/16- ) DuoNeb every 6 hours scheduled Robitussin-DM when necessary for cough Albuterol when necessary for shortness of breath Tylenol when necessary for fever (2) Physical deconditioning ICD Codes: R53.81 - Other malaise Status: Acute Plan: Patient requesting placement after hospitalization for continued rehabilitation -PT ordered -CM consult for placement (3) Hypertension ICD Codes: I10 - Essential (primary) hypertension Status: Chronic Plan: Patient with chronic hypertension Medications: Continue hydrochlorothiazide Continue Cozaar Continue aspirin (4) Constipation ICD Codes: K59.00 - Constipation, unspecified Status: Acute Plan: Patient with chronic constipation -Constipation protocol in place (5) BPH (benign prostatic hyperplasia) ICD Codes: N40.0 - Benign prostatic hyperplasia without lower urinary tract symptoms Status: Acute Plan: Patient with BPH Medications: Continue home finasteride (6) Nutrition, metabolism, and development symptoms ICD Codes: R63.8 - Other symptoms and signs concerning food and fluid intake Status: Acute Plan: Fluids: Normal saline at 120 mL per hour Diet: Regular as tolerated Electrolytes: Hyponatremic to 126, continue to monitor Prophylaxis: Trazodone when necessary for insomnia, pantoprazole twice a day for GERD, constipation protocol in place, clonidine when necessary for BP greater than 180/110 (7) No contraindication to deep vein thrombosis (DVT) prophylaxis ICD Codes: Z78.9 - Other specified health status Status: Acute Plan: Heparin 5000 units every 8 hours MC/SCD Physician Certification 2 Midnight Certification Type: Admission for Inpatient Services Order for Inpatient Services The services are ordered in accordance with Medicare regulations or non- Medicare payer requirements, as applicable. In the case of services not specified as inpatient-only, they are appropriately provided as inpatient services in accordance with the 2-midnight benchmark. Estimated LOS (days): 3 3 days is the estimated time the patient will need to remain in the hospital, assuming treatment plan goals are met and no additional complications. Post-Hospital Plan: Home Problem Qualifiers (1) Pneumonia: Qualified Codes: J18.9 - Pneumonia, unspecified organism Ignacio Sena MD R2 Aug 16, 2017 16:06
[2017-08-16] MEDS ORDERED: ACETAMINOPHEN 325 MG TAB PO PRN (16:30)
[2017-08-16] MEDS ORDERED: MAGNESIUM HYDROXIDE SUSP 30 ML CUP PO PRN (16:30)
[2017-08-16] MEDS ORDERED: RESP: ALBUTEROL 2.5 MG/3 ML NEB (PRN) NEB (16:30)
[2017-08-16] MEDS ORDERED: ONDANSETRON HCL 4 MG/2 ML VIAL IVP PRN (16:30)
[2017-08-16] MEDS ORDERED: LACTULOSE SYRUP 20 GM/30 ML CUP PO PRN ×2 (16:30→17:00)
[2017-08-16] MEDS ORDERED: NALOXONE HCL 0.4 MG/ML AMP IV PUSH PRN (16:30)
[2017-08-16] MEDS ORDERED: BISACODYL 10 MG SUPP RECTAL PRN (16:30)
[2017-08-16] MEDS ORDERED: SENNOSIDES 8.6 MG TAB PO PRN (16:30)
[2017-08-16] MEDS ORDERED: guaiFENesin/DEXTROMETHORPHAN 200 MG/20 MG/10 ML CUP PO PRN (16:30)
[2017-08-16] MEDS ORDERED: SODIUM CHLORIDE 0.9% FLUSH 10 ML FLUSH IV FLUSH PRN (16:30)
[2017-08-16] MEDS: AZTREONAM INJ 2,000 MG in SODIUM CHLORIDE 0.9% INJ 100 ML IV SCH (17:14)
[2017-08-16] MEDS: SODIUM CHLOR 0.9% 1000 ML INJ 1,000 ML IV SCH (17:14)
[2017-08-16] MEDS: PIPERACIL-TAZO 4.5 GM PREMIX 100 ML IV SCH (17:49)
[2017-08-16] MEDS: SODIUM CHLORIDE 0.9% FLUSH 10 ML FLUSH IV FLUSH SCH (20:53)
[2017-08-16] MEDS: ATORVASTATIN 10 MG TAB PO SCH (20:55)
[2017-08-16] MEDS: DOCUSATE SODIUM 50 MG/SENNA 8.6 MG TAB PO SCH (20:55)
[2017-08-16] MEDS: PANTOPRAZOLE SOD 20 MG DELAYED RELEASE TAB PO SCH (20:55)
[2017-08-16] MEDS: traZODone HCL 50 MG TAB PO SCH (20:55)
[2017-08-16] MEDS: HEPARIN SODIUM - SQ 10,000 UNITS/ML VIAL SQ SCH (21:01)
[2017-08-16] MEDS: RESP: ALBUTEROL 2.5 MG/IPRATROPIUM 0.5 MG NEB (SCH) INH (21:18)
[2017-08-17] VITALS (13 sets, daily range): BP systolic 86–166; BP diastolic 54–82; PULSE 64–95; RESP 16–20; TEMP 97.5–98.2; O2SAT 94–99
[2017-08-17] MEDS: PIPERACIL-TAZO 4.5 GM PREMIX 100 ML IV SCH ×5 (00:33→23:03)
[2017-08-17] MEDS: AZTREONAM INJ 2,000 MG in SODIUM CHLORIDE 0.9% INJ 100 ML IV SCH (00:40)
[2017-08-17] MEDS: RESP: ALBUTEROL 2.5 MG/IPRATROPIUM 0.5 MG NEB (SCH) INH ×4 (03:43→20:57)
[2017-08-17] MEDS: SODIUM CHLOR 0.9% 1000 ML INJ 1,000 ML IV SCH ×3 (04:01→16:27)
[2017-08-17] MEDS: HEPARIN SODIUM - SQ 10,000 UNITS/ML VIAL SQ SCH ×3 (05:20→22:59)
[2017-08-17] MEDS: AZITHROMYCIN INJ 500 MG in SODIUM CHLOR 0.9% 250 ML INJ 250 ML IV SCH (06:26)
[2017-08-17 07:36] LABS: AUTOMATED NEUTROPHIL # 2.5 TH/MM3 (1.8-7.7); BASOPHIL % 0.6 % (0.0-2.0); EOSINOPHIL # 0.2 TH/MM3 (0-0.4); HEMATOCRIT 25.4 % (39.0-51.0); LYMPH % 15.1 % (9.0-44.0); LYMPHOCYTE # 0.6 TH/MM3 (1.0-4.8); MEAN CELL VOLUME 86.9 FL (80.0-100.0); MEAN CORPUSCULAR HEMOGLOBIN 30.2 PG (27.0-34.0); MEAN CORPUSCULAR HGB CONC 34.8 % (32.0-36.0); MONO % 14.1 % (0.0-8.0); NEUT % 64.2 % (16.0-70.0); PLATELET COUNT 252 TH/MM3 (150-450); RED BLOOD COUNT 2.93 MIL/MM3 (4.50-5.90); RED CELL DISTRIBUTION WIDTH 13.6 % (11.6-17.2); WHITE BLOOD COUNT 3.9 TH/MM3 (4.0-11.0)
[2017-08-17 07:39] LABS: HEMO FLAGS AUTO DIFF
[2017-08-17 08:13] LABS: ALKALINE PHOSPHATASE 86 U/L (45-117); ALT (GPT) 14 U/L (12-78); ANION GAP 9 MEQ/L (5-15); AST (GOT) 9 U/L (15-37); BICARBONATE 24.1 MEQ/L (21.0-32.0); BLOOD UREA NITROGEN 6 MG/DL (7-18); CHLORIDE 99 MEQ/L (98-107); GLOMERULAR FILTRATION RATE 127 ML/MIN (>89); POTASSIUM 3.1 MEQ/L (3.5-5.1); SODIUM (NA) 132 MEQ/L (136-145); TOTAL BILIRUBIN ADULT 0.4 MG/DL (0.2-1.0)
[2017-08-17 08:31] LABS: SCAN/DIFF AUTO DIFF CONFIRMED
[2017-08-17] MEDS ORDERED: LOSARTAN 50 MG TAB PO SCH (09:00)
[2017-08-17] MEDS ORDERED: HYDROCHLOROTHIAZIDE 12.5 MG CAP PO SCH (09:00)
[2017-08-17] MEDS: DOCUSATE SODIUM 50 MG/SENNA 8.6 MG TAB PO SCH ×2 (09:12→20:11)
[2017-08-17] MEDS: DOCUSATE SODIUM 100 MG CAP PO SCH (09:12)
[2017-08-17] MEDS: POLYETHYLENE GLYCOL 17 GM PKG PO SCH (09:12)
[2017-08-17] MEDS: ASPIRIN 81 MG CHEW TAB CHEW SCH (09:12)
[2017-08-17] MEDS: FINASTERIDE 5 MG TAB PO SCH (09:13)
[2017-08-17] MEDS: PANTOPRAZOLE SOD 20 MG DELAYED RELEASE TAB PO SCH ×2 (09:13→20:11)
[2017-08-17] MEDS: SODIUM CHLORIDE 0.9% FLUSH 10 ML FLUSH IV FLUSH SCH ×2 (09:14→20:10)
--- NOTE | 2017-08-17 09:46 | RADRPT ---
EXAM DATE/TIME: 08/17/2017 08:28 [place] COMPARISON: CHEST SINGLE AP, July 19, 2017, 8:51. INDICATIONS : Evaluate pneumonia. MEDICAL HISTORY : Hypertension. SURGICAL HISTORY : None. ENCOUNTER: Initial ACUITY: 1 day PAIN SCORE: 0/10 LOCATION: chest FINDINGS: Persistent consolidative changes left base. Right lung is clear. Heart remains enlarged. The vascu larity is normal. CONCLUSION: Stable consolidation left base. Joshua Barillas MD FACR on August 17, 2017 at 9:43 Board Certified Radiologist. This report was verified electronically.
[2017-08-17] MEDS ORDERED: POTASSIUM CHLORIDE 10 MEQ CONTROLLED RELEASE TAB PO ONE (13:30)
--- NOTE | 2017-08-17 17:17 | EKG ---
Date Performed: 08/16/2017 Time Performed: 13:17:19 PTAGE: 82 years EKG: Sinus rhythm POSSIBLE LATERAL MYOCARDIAL INFARCTION When compared to previous tracing, the prematur atrial Contra ctions have resolved. The previously noted minimal ST depression has resolved. BORDERLINE ECG PREVIOUS TRACING : 07/19/2017 14.22 DOCTOR: María Frye Interpretating Date/Time 08/17/2017 17:15:57
--- NOTE | 2017-08-17 17:41 | HHI.HP ---
[facility] Service Family Medicine Primary Care Physician No Primary Care Physician Admission Diagnosis Pneumonia that failed outpatient treatment Diagnoses: (1) Pneumonia Diagnosis: Principal (2) Physical deconditioning Diagnosis: Principal (3) Hypertension Diagnosis: Principal (4) Constipation Diagnosis: Principal (5) BPH (benign prostatic hyperplasia) Diagnosis: Principal (6) Nutrition, metabolism, and development symptoms Diagnosis: Principal (7) No contraindication to deep vein thrombosis (DVT) prophylaxis Diagnosis: Principal International Travel<30 Days: No Contact w/Intl Traveler<30days: No Known Affected Area: No History of Present Illness Mr. Wright is a 82 y/o M presenting to the ED with worsening pneumonia per outpatient chest x-ray. From 07/14-07/20 , patient was admitted to [facility] after left posterior rib fracture and hemopneumothorax resulting in chest tube placement. After the hospitalization he was discharged to a SNF for rehabilitation prior to returning to his independent living on 08/02. Upon returning to [facility], he was found to have pneumonia with a UTI. Patient was started on Levaquin on 08/12 for 7 days. However repeat chest x -ray showed worsening pneumonia which prompted his presentation to the ED. He reports that during this entire time frame from his admission until today he has had a chronic productive cough with yellow/green sputum, subjective fevers, shortness of breath, and chest pain resulting due to his chronic cough. He reports that he felt "awful" and has since his discharge on 07/20. He denies any residual rib pain from his fracture, but does state that his left shoulder is sore after his fall resulting in his fracture. Otherwise he has no complaints and denies any cardiac chest pain, headaches, blurry vision, NVD, abdominal pain , or calf tenderness. He feels improved overall from his admission. His BPs are low today. He states he has felt dizzy often when getting up and this is what caused his fall and the rib fractures. Review of Systems Other Constitutional: COMPLAINS OF: Fever, Chills, DENIES: Dizziness Eyes: DENIES: Blurred vision Ears, nose, mouth, throat: DENIES: Throat pain Respiratory: COMPLAINS OF: Cough, Sputum production, Shortness of breath, DENIES: Hemoptysis Cardiovascular: DENIES: Chest pain Gastrointestinal: DENIES: Abdominal pain, Constipation, Diarrhea, Nausea, Vomiting Genitourinary: DENIES: Hematuria, Dysuria Musculoskeletal: DENIES: Back pain Integumentary: DENIES: Rash Hematologic/lymphatic: DENIES: Lymphadenopathy Immunologic/allergic: DENIES: Urticaria Neurologic: DENIES: Headache Psychiatric: DENIES: Mood changes Past Family Social History Past Medical History HEENT: REPORTS HX OF: Cataracts (OU) Cardiovascular: REPORTS HX OF: Hyperlipidemia, Hypertension Gastrointestinal: REPORTS HX OF: GERD Musculoskeletal: REPORTS HX OF: Fractures (Right Leg 2000) Cancer - male: REPORTS HX OF: Prostate cancer Past Surgical History HEENT: REPORTS HX OF: Tonsillectomy Musculoskeletal: REPORTS HX OF: Other musculoskeletal srg (Surgery on Right Leg 2000) Allergies: Coded Allergies: No Known Allergies (Verified Adverse Reaction, Unknown, 08/16/17) Family History FH: ovarian cancer G8 SISTER Hypertension G8 FATHER Social History retired resides at [facility], lives by himself NOK: Daughter Lizzy Wright Alcohol intake: Occasional, last use > 1 month Tobacco: Denies history Substance use: Denies use Physical Exam Vital Signs Vital Signs Date Time Temp Pulse Resp B/P (MAP) Pulse Ox O2 Delivery O2 Flow Rate FiO2 08/17/17 16:47 Room Air 08/17/17 15:17 97 21 08/17/17 13:35 71 100/54 (69) 08/17/17 12:58 Room Air 08/17/17 12:00 97.8 78 20 86/54 (65) 97 08/17/17 09:40 Room Air 08/17/17 08:26 96 08/17/17 08:00 98.1 95 20 117/62 (80) 95 08/17/17 08:00 69 08/17/17 04:04 79 08/17/17 04:00 98.0 75 20 161/72 (101) 96 08/17/17 00:00 73 08/17/17 00:00 98.1 78 20 129/73 (91) 96 08/16/17 21:33 64 08/16/17 21:22 98 08/16/17 20:00 97.9 70 20 158/81 (106) 98 08/16/17 18:39 97.9 76 18 138/85 (102) 98 Physical Exam GENERAL: This is a elderly gentleman sitting in bed in no acute distress. SKIN: No rashes, ecchymoses or lesions. Cool and dry. HEENT: Atraumatic, normocephalic with EOMI. PERRLA. Oropharynx clear without erythema or exudate. No rhinorrhea. No LAD, JVD, or thyroid abnormality appreciated. CARDIOVASCULAR: Regular rate and rhythm without murmurs, gallops, or rubs. 2+ pulses in all 4 extremities. RESPIRATORY: Decreased aeration bilaterally with no CRW appreciated. No increased work of breathing. GASTROINTESTINAL: Abdomen soft, non-tender, nondistended with positive bowel sounds. No masses appreciated. MUSCULOSKELETAL: Extremities without cyanosis or edema. No calf tenderness. NEUROLOGICAL: AAO 3. Afocal. Normal speech and judgment. Laboratory Laboratory Tests Test 08/17/17 06:30 White Blood Count 3.9 Red Blood Count 2.93 Hemoglobin 8.8 Hematocrit 25.4 Mean Corpuscular Volume 86.9 Mean Corpuscular Hemoglobin 30.2 Mean Corpuscular Hemoglobin Concent 34.8 Red Cell Distribution Width 13.6 Platelet Count 252 Mean Platelet Volume 7.2 Neutrophils (%) (Auto) 64.2 Lymphocytes (%) (Auto) 15.1 Monocytes (%) (Auto) 14.1 Eosinophils (%) (Auto) 6.0 Basophils (%) (Auto) 0.6 Neutrophils # (Auto) 2.5 Lymphocytes # (Auto) 0.6 Monocytes # (Auto) 0.5 Eosinophils # (Auto) 0.2 Basophils # (Auto) 0.0 CBC Comment AUTO DIFF Differential Comment AUTO DIFF CONFIRMED Blood Urea Nitrogen 6 Creatinine 0.61 Random Glucose 98 Total Protein 5.8 Albumin 2.3 Calcium Level 7.8 Alkaline Phosphatase 86 Aspartate Amino Transf (AST/SGOT) 9 Alanine Aminotransferase (ALT/SGPT) 14 Total Bilirubin 0.4 Sodium Level 132 Potassium Level 3.1 Chloride Level 99 Carbon Dioxide Level 24.1 Anion Gap 9 Estimat Glomerular Filtration Rate 127 Date/Time Source Procedure Growth Status 08/16/17 13:45 Blood Peripheral Aerobic Blood Culture - Preliminary NO GROWTH IN 1 DAY Resulted 08/16/17 13:45 Blood Peripheral Anaerobic Blood Culture - Preliminary NO GROWTH IN 1 DAY Resulted 08/16/17 16:40 Nasal Aspirate Influenza Types A,B Antigen (RADHA) - Final NEGATIVE FOR FLU A AND B ANTIGEN.... Complete 08/16/17 18:40 Urine Clean Catch Legionella Antigen - Final PRESUMPTIVE NEGATIVE FOR LEGIONELLA P... Complete 08/16/17 18:40 Urine Clean Catch Streptococcus pneumoniae Antigen (M - Final PRESUMPTIVE NEGATIVE FOR STREPTOCOCCU... Complete Result Diagram: 08/17/1762908/17/17629 Caprin VTE Risk Assessment Caprin VTE Risk Assessment: Mod/High Risk (score >= 2) Caprini Risk Assessment Model Point Value = 1 Point Value = 2 Point Value = 3 Point Value = 5 Age 41-60 Minor surgery BMI > 25 kg/m2 Swollen legs Varicose veins or History of unexplained or recurrent spontaneous Oral contraceptives or hormone replacement Sepsis (< 1 month) Serious lung disease, including pneumonia (< 1 month) Abnormal pulmonary function Acute myocardial infarction Congestive heart failure (< 1 month) History of inflammatory bowel disease Medical patient at bed rest Age 61-74 Arthroscopic surgery Major open surgery (> 45 min) Laparoscopic surgery (> 45 min) Malignancy Confined to bed (> 72 hours) Immobilizing plaster cast Central venous access Age >= 75 History of VTE Family history of VTE Factor V Leiden Prothrombin [id number] Lupus anticoagulant Anticardiolipin antibodies Elevated serum homocysteine Heparin-induced thrombocytopenia Other congenital or acquired thrombophilia Stroke (< 1 month) Elective arthroplasty Hip, pelvis, or leg fracture Acute spinal cord injury (< 1 month) Prophylaxis Regimen Total Risk Factor Score Risk Level Prophylaxis Regimen 0-1 Low Early ambulation 2 Moderate Order ONE of the following: *Sequential Compression Device (SCD) *Heparin 5000 units SQ BID 3-4 Higher Order ONE of the following medications: *Heparin 5000 units SQ TID *Enoxaparin/Lovenox 40 mg SQ daily (WT < 150 kg, CrCl > 30 mL/min) *Enoxaparin/Lovenox 30 mg SQ daily (WT < 150 kg, CrCl > 10-29 mL/min) *Enoxaparin/Lovenox 30 mg SQ BID (WT < 150 kg, CrCl > 30 mL/min) AND/OR *Sequential Compression Device (SCD) 5 or more Highest Order ONE of the following medications: *Heparin 5000 units SQ TID (Preferred with Epidurals) *Enoxaparin/Lovenox 40 mg SQ daily (WT < 150 kg, CrCl > 30 mL/min) *Enoxaparin/Lovenox 30 mg SQ daily (WT < 150 kg, CrCl > 10-29 mL/min) *Enoxaparin/Lovenox 30 mg SQ BID (WT < 150 kg, CrCl > 30 mL/min) AND *Sequential Compression Device (SCD) Assessment and Plan Assessment and Plan Mr. Wright is a 82 y/o M presenting to the ED with worsening pneumonia per outpatient chest x-ray admitted for outpatient treatment failure. Problem List: (1) Pneumonia ICD Codes: J18.9 - Pneumonia, unspecified organism Status: Acute Plan: Patient presenting with pneumonia concerning for HCAP with recent hospitalization. he is improving so will keep on current treatment for now Imaging/studies/labs: [facility] imaging chest x-ray: Increased left pulmonary consolidation compared to prior exam from 08/11/17 CBC: WBC 5.4 CMP: Sodium 126 Lactic acid: 0.8 Influenza negative Legionella and strep pneumo urinary antigens: Pending Blood cultures 2: Pending Medications: Zosyn every 6 hours (08/16- ) Azithromycin daily (08/16- ) DuoNeb every 6 hours scheduled Robitussin-DM when necessary for cough Albuterol when necessary for shortness of breath Tylenol when necessary for fever (2) Physical deconditioning ICD Codes: R53.81 - Other malaise Status: Acute Plan: Patient requesting placement after hospitalization for continued rehabilitation. Now he wants to go back to his assisted living with PT at home -PT ordered -CM consult for placement (3) Hypertension ICD Codes: I10 - Essential (primary) hypertension Status: Chronic Plan: Patient with chronic hypertension. his BPs are low here so will stop HCTZ and hold cozaar if his diastolics are low. he may need this med stopped as well. check orthostatics in the am he reports orthostatic sxs which could also be from his other meds like trazadone or his prostate meds Medications: Continue Cozaar Continue aspirin (4) Constipation ICD Codes: K59.00 - Constipation, unspecified Status: Acute Plan: Patient with chronic constipation -Constipation protocol in place (5) BPH (benign prostatic hyperplasia) ICD Codes: N40.0 - Benign prostatic hyperplasia without lower urinary tract symptoms Status: Acute Plan: Patient with BPH Medications: Continue home finasteride (6) Nutrition, metabolism, and development symptoms ICD Codes: R63.8 - Other symptoms and signs concerning food and fluid intake Status: Acute Plan: Fluids: Normal saline at 120 mL per hour Diet: Regular as tolerated Electrolytes: Hyponatremic to 126, continue to monitor Prophylaxis: Trazodone when necessary for insomnia, pantoprazole twice a day for GERD, constipation protocol in place, clonidine when necessary for BP greater than 180/110 (7) No contraindication to deep vein thrombosis (DVT) prophylaxis ICD Codes: Z78.9 - Other specified health status Status: Acute Plan: Heparin 5000 units every 8 hours MC/SCD Problem Qualifiers (1) Pneumonia: Qualified Codes: J18.9 - Pneumonia, unspecified organism (2) Hypertension: Qualified Codes: I10 - Essential (primary) hypertension (3) BPH (benign prostatic hyperplasia): Qualified Codes: N40.0 - Benign prostatic hyperplasia without lower urinary tract symptoms Rody Dos Santos MD Aug 17, 2017 17:41
[2017-08-17] MEDS: traZODone HCL 50 MG TAB PO SCH (20:11)
[2017-08-17] MEDS: ATORVASTATIN 10 MG TAB PO SCH (20:11)
[2017-08-18] VITALS (9 sets, daily range): BP systolic 120–168; BP diastolic 55–75; PULSE 62–89; RESP 16–20; TEMP 97.3–98.2; O2SAT 95–100
[2017-08-18] MEDS: SODIUM CHLOR 0.9% 1000 ML INJ 1,000 ML IV SCH ×3 (00:16→15:26)
[2017-08-18] MEDS: PIPERACIL-TAZO 4.5 GM PREMIX 100 ML IV SCH ×2 (05:09→11:48)
[2017-08-18] MEDS: HEPARIN SODIUM - SQ 10,000 UNITS/ML VIAL SQ SCH ×2 (05:12→14:00)
[2017-08-18] MEDS: AZITHROMYCIN INJ 500 MG in SODIUM CHLOR 0.9% 250 ML INJ 250 ML IV SCH (05:15)
[2017-08-18] MEDS: RESP: ALBUTEROL 2.5 MG/IPRATROPIUM 0.5 MG NEB (SCH) INH ×2 (05:24→09:35)
[2017-08-18 07:44] LABS: HEMATOCRIT 25.7 % (39.0-51.0); MEAN CELL VOLUME 86.7 FL (80.0-100.0); MEAN CORPUSCULAR HEMOGLOBIN 30.9 PG (27.0-34.0); MEAN CORPUSCULAR HGB CONC 35.6 % (32.0-36.0); PLATELET COUNT 245 TH/MM3 (150-450); RED BLOOD COUNT 2.96 MIL/MM3 (4.50-5.90); RED CELL DISTRIBUTION WIDTH 13.7 % (11.6-17.2); REVIEW FLAG FINAL; WHITE BLOOD COUNT 4.2 TH/MM3 (4.0-11.0)
[2017-08-18 08:04] LABS: ANION GAP 10 MEQ/L (5-15); AST (GOT) 12 U/L (15-37); BICARBONATE 21.9 MEQ/L (21.0-32.0); BLOOD UREA NITROGEN 5 MG/DL (7-18); CHLORIDE 101 MEQ/L (98-107); GLOMERULAR FILTRATION RATE 143 ML/MIN (>89); POTASSIUM 3.1 MEQ/L (3.5-5.1); SODIUM (NA) 133 MEQ/L (136-145)
[2017-08-18 08:05] LABS: ALT (GPT) 10 U/L (12-78)
[2017-08-18 08:08] LABS: ALKALINE PHOSPHATASE 83 U/L (45-117); TOTAL BILIRUBIN ADULT 0.4 MG/DL (0.2-1.0)
[2017-08-18] MEDS: DOCUSATE SODIUM 100 MG CAP PO SCH (08:08)
[2017-08-18] MEDS: POLYETHYLENE GLYCOL 17 GM PKG PO SCH (08:09)
[2017-08-18] MEDS: SODIUM CHLORIDE 0.9% FLUSH 10 ML FLUSH IV FLUSH SCH (08:09)
[2017-08-18] MEDS: ASPIRIN 81 MG CHEW TAB CHEW SCH (08:09)
[2017-08-18] MEDS: FINASTERIDE 5 MG TAB PO SCH (08:09)
[2017-08-18] MEDS: DOCUSATE SODIUM 50 MG/SENNA 8.6 MG TAB PO SCH (08:09)
[2017-08-18] MEDS: PANTOPRAZOLE SOD 20 MG DELAYED RELEASE TAB PO SCH (08:09)
[2017-08-18] MEDS ORDERED: POTASSIUM CHLORIDE 10 MEQ CONTROLLED RELEASE TAB PO ONE (10:45)
[2017-08-18] MEDS ORDERED: DOXY100C PO (13:33)
--- NOTE | 2017-08-18 13:35 | HHI.FF ---
Face to Face Verification Diagnosis: (1) Physical deconditioning (2) Pneumonia Physical Therapy Order: Evaluate and Treat Home Health Nursing Order: Medical education Signs/symptoms of disease process Medication education-adverse effect Nursing assessment with vital signs I have seen patient Stew Wright on 08/18/17. My clinical findings support the need for the requested home health care services because: Ltd mobility - disease progression Patient has SOB Deconditioned w/ increased weakness Med compliance is questionable Limited ability to care for self High risk of falls I certify that my clinical findings support that this patient is homebound because: Impaired cognitive ability/safety Unsteady gait/balance Unsafe to leave home unassisted Ignacio Sena MD R2 Aug 18, 2017 13:35
--- NOTE | 2017-08-18 13:36 | HHI.DCPOC ---
Discharge Care Plan Diagnosis: (1) Physical deconditioning (2) Pneumonia Goals to Promote Your Health * To prevent worsening of your condition and complications * To maintain your health at the optimal level Directions to Meet Your Goals Take your medications as prescribed Follow your dietary instruction Follow activity as directed Keep your appointments as scheduled Take your immunizations and boosters as scheduled If your symptoms worsen call your PCP, if no PCP go to Urgent Care Center or Emergency Room Smoking is Dangerous to Your Health. Avoid second hand smoke Call the 24-hour hour crisis hotline for domestic abuse at Ignacio Sena MD R2 Aug 18, 2017 13:36
--- NOTE | 2017-08-18 14:42 | HHI.FPPN ---
Subjective Remarks Patient seen and examined this morning. No acute events overnight per nursing staff. Patient states he is doing well and feels back to "100%." Patient states he does continue to have a cough, but his shortness of breath and mucus production. Both subsided. He states that he is ready to go back to his assisted living facility, but would like to have continued physical therapy as he feels "run down." Otherwise he has no complains and denies any new fevers, chills, shortness breath, chest pain, NVD, abdominal pain, or calf tenderness. (Ignacio Sena MD R2) Objective Vitals Vital Signs Date Time Temp Pulse Resp B/P (MAP) Pulse Ox O2 Delivery O2 Flow Rate FiO2 08/18/17 12:06 98.2 77 19 120/67 (84) 100 08/18/17 11:55 Room Air 08/18/17 09:35 97 21 08/18/17 08:15 Room Air 08/18/17 08:06 97.6 87 20 137/55 (82) 99 08/18/17 08:00 89 08/18/17 05:25 95 08/18/17 04:23 97.3 78 16 168/75 (106) 97 08/18/17 04:09 62 08/18/17 00:25 71 08/17/17 23:47 98.2 76 16 156/82 (106) 94 08/17/17 20:43 64 08/17/17 20:20 97.5 64 17 166/79 (108) 97 08/17/17 19:30 Room Air 08/17/17 18:17 82 08/17/17 16:47 Room Air 08/17/17 16:00 86 107/55 (72) 08/17/17 16:00 98.1 81 20 133/77 (95) 99 08/17/17 16:00 77 133/69 (90) 08/17/17 15:17 97 21 I/O 08/17/17 08/17/17 08/17/17 08/18/17 08/18/17 08/18/17 07:00 15:00 23:00 07:00 15:00 23:00 Intake Total 1973 ml 250 ml 600 ml 1465 ml 1100 ml Output Total 600 ml 1475 ml Balance 1373 ml 250 ml 600 ml -10 ml 1100 ml Intake Oral 480 ml 600 ml 0 ml IV Total 1493 ml 250 ml 1465 ml 1100 ml Output Urine Total 600 ml 1475 ml # Voids 3 # Bowel Movements 1 1 0 (Ignacio Sena MD R2) Result Diagram: 08/18/17 0600 08/18/17 06 Objective Remarks GENERAL: This is a elderly gentleman sitting in recliner in no acute distress appearing cold. SKIN: No rashes, ecchymoses or lesions. Cool and dry. HEENT: Atraumatic, normocephalic with EOMI. MMM. No rhinorrhea. No LAD, JVD, or thyroid abnormality appreciated. CARDIOVASCULAR: Regular rate and rhythm without murmurs, gallops, or rubs. 2+ pulses in all 4 extremities. RESPIRATORY: Clear to auscultation bilaterally with no CRW. No increased work of breathing. GASTROINTESTINAL: Abdomen soft, non-tender, nondistended with positive bowel sounds. No masses appreciated. MUSCULOSKELETAL: Extremities without cyanosis or edema. No calf tenderness. NEUROLOGICAL: AAO 3. Afocal. Normal speech and judgment. (Ignacio Sena MD R2) A/P Assessment and Plan Mr. Wright is a 82 y/o M presenting to the ED with worsening pneumonia per outpatient chest x-ray admitted for outpatient treatment failure. Discharge Planning Today back to [facility]. Patient be discharged home on doxycycline with follow-up next week with his PCP (Ignacio Sena MD R2) Attending Attestation Patient seen and examined. Case reviewed and discussed with the resident team. Agree with plan of care as discussed with me and documented in the resident note. he did not want to go to rehab or a SNF as he had recently been to one and felt he was doing well enough to go home and have PT there (Rody Dos Santos MD) Problem List: (1) Pneumonia ICD Codes: J18.9 - Pneumonia, unspecified organism Status: Acute Plan: Patient presenting with pneumonia concerning for HCAP with recent hospitalization. Imaging/studies/labs: [facility] imaging chest x-ray: Increased left pulmonary consolidation compared to prior exam from 08/11/17 CBC: WBC 5.4 CMP: Sodium 126 Lactic acid: 0.8 Influenza negative Legionella and strep pneumo urinary antigens: Negative Blood cultures 2: Negative to date Medications: Zosyn every 6 hours (08/16-08/18) Azithromycin daily (08/16-08/18) DuoNeb every 6 hours scheduled Robitussin-DM when necessary for cough Albuterol when necessary for shortness of breath Tylenol when necessary for fever Patient be discharged home on doxycycline twice a day for a total of 14 days of antibiotics for HCAP (2) Physical deconditioning ICD Codes: R53.81 - Other malaise Status: Acute Plan: Patient requesting placement after hospitalization for continued rehabilitation. Now he wants to go back to his assisted living with PT at home -PT ordered -CM consult for placement -Patient be discharged back to [facility] with orders for home health physical therapy (3) Hypertension ICD Codes: I10 - Essential (primary) hypertension Status: Chronic Plan: Patient with chronic hypertension. his BPs are low here so will stop HCTZ and hold cozaar if his diastolics are low. Medications: -Discontinue all home medications including trazodone as patient displayed signs and symptoms of orthostatic hypotension, confirmed with orthostatic vital signs -Patient to follow-up with PCP for continued blood pressure monitoring (4) Constipation ICD Codes: K59.00 - Constipation, unspecified Status: Acute Plan: Patient with chronic constipation -Constipation protocol in place (5) BPH (benign prostatic hyperplasia) ICD Codes: N40.0 - Benign prostatic hyperplasia without lower urinary tract symptoms Status: Acute Plan: Patient with BPH Medications: Continue home finasteride (6) Nutrition, metabolism, and development symptoms ICD Codes: R63.8 - Other symptoms and signs concerning food and fluid intake Status: Acute Plan: Fluids: Normal saline at 120 mL per hour Diet: Regular as tolerated Electrolytes: Hyponatremic to 126, continue to monitor Prophylaxis: Trazodone when necessary for insomnia, pantoprazole twice a day for GERD, constipation protocol in place, clonidine when necessary for BP greater than 180/110 (7) No contraindication to deep vein thrombosis (DVT) prophylaxis ICD Codes: Z78.9 - Other specified health status Status: Acute Plan: Heparin 5000 units every 8 hours, discontinued at discharge MC/SCD (Ignacio Sena MD R2) Problem Qualifiers (1) Pneumonia: Qualified Codes: J18.9 - Pneumonia, unspecified organism (2) Hypertension: Qualified Codes: I10 - Essential (primary) hypertension (3) BPH (benign prostatic hyperplasia): Qualified Codes: N40.0 - Benign prostatic hyperplasia without lower urinary tract symptoms Ignacio Sena MD R2 Aug 18, 2017 14:42 Rody Dos Santos MD Aug 19, 2017 12:48
[2017-08-19] MEDS ORDERED: POTA-163 PO (10:08)
== END 2017-08-18 16:30 | DRG 194 ==
LOC: NEPC 12:55 → NEDA 15:48 → OBSVTOIN 15:57 → N04A 19:02
PROVIDERS: ADMIT Family Medicine; ATTEND Family Medicine
DX: J18.9 Pneumonia, unspecified organism (principal); N39.0 Urinary tract infection, site not specified; E87.1 Hypo-osmolality and hyponatremia; E78.5 Hyperlipidemia, unspecified; I10 Essential (primary) hypertension; K21.9 Gastro-esophageal reflux disease without esophagitis; K59.09 Other constipation; N40.0 Benign prostatic hyperplasia without lower urinary tract symptoms; F32.9 Major depressive disorder, single episode, unspecified; Z85.46 Personal history of malignant neoplasm of prostate; Z79.01 Long term (current) use of anticoagulants; Z92.3 Personal history of irradiation
CPT/HCPCS: 71010; 80048; 80053; 83605; 83735; 84484; 85007; 85025; 85027; 85610; 85730; 87040; 87070; 87205; 87449; 87804; 93005; 94150; 94640; 94664; 94667; 94668; 96374; J0456; J0696; J1644; J2543; J7030; J7050